=== PATIENT | female | born 1990 | race Caucasian/White ===

== ENCOUNTER 2023-11-12 23:42 | Emergency (ER) | payer SELFPAY ==
[2023-11-12 23:47] VITALS: BP 143/91; PULSE 100; RESP 20; TEMP 36.7; O2SAT 97; BMI 37.4
[2023-11-13] VITALS (12 sets, daily range): BP systolic 112–127; BP diastolic 65–105; O2SAT 95–99
--- NOTE | 2023-11-13 00:08 | ED_ITS ---
HPI - Abdominal Pain General Chief Complaint: Abdominal Pain Stated Complaint: RT FLANK PAIN Time Seen by Provider: 11/13/23 00:00 Source: patient Mode of arrival: walk-in History of Present Illness HPI narrative: presents complaining of Right sided abdominal pain. Points to RUQ. pain that started around noon yesterday and has continued. Pain radiates around to her back and is associated with nausea. No fever. No chest pain or dyspnea Related Data Home Medications Medication Instructions Recorded Confirmed No Known Home Medications 11/12/23 11/12/23 Allergies Allergy/AdvReac Type Severity Reaction Status Date / Time Sulfa (Sulfonamide Allergy Verified 11/12/23 23:51 Antibiotics) peanuts Allergy Uncoded 11/12/23 23:51 Review of Systems ROS Status of ROS 10 or more systems reviewed and unremark able except as noted in history and below Exam Constitutional Vital Signs, click to edit/add: Last Vital Signs Temp 98.0 F 11/12/23 23:47 Pulse 100 H 11/12/23 23:47 Resp 20 11/12/23 23:47 BP 127/82 11/13/23 01:45 Pulse Ox 96 11/13/23 01:45 O2 Del Method Room Air 11/13/23 00:29 Common normals: no apparent distress, average body habitus, oriented x3, no limitations, healthy appearing, alert and well nourished [facility] Common normals: normocephalic Eye Common normals: PERRL, EOMs intact bilaterally and conjunctivae normal Respiratory Common normals: normal respiratory effort, no retractions, no use of accessory muscles and clear to auscultation bilaterally Cardio Common normals: regular rate, regular rhythm, S1 normal heart sound and S2 normal heart sound GI Common normals: soft to palpation Other: mod RUQ tenderness and mod. RLQ tenderness. mild tenderness periumbilical Extremity Common normals: normal to inspection and full ROM Neuro Common normals: oriented x3, CN's II-XII intact bilaterally, moves all extremities and no focal motor deficits Psych Appearance: grossly normal Course Vital Signs Vital signs: Vital Signs Temperature 98.0 F 11/12/23 23:47 Pulse Rate 100 H 11/12/23 23:47 Respiratory Rate 20 11/12/23 23:47 Blood Pressure 143/91 H 11/12/23 23:47 Pulse Oximetry 97 11/12/23 23:47 Temperature 98.0 F 11/12/23 23:47 Pulse Rate 100 H 11/12/23 23:47 Respiratory Rate 20 11/12/23 23:47 Blood Pressure 127/82 11/13/23 01:45 Pulse Oximetry 96 11/13/23 01:45 Oxygen Delivery Method Room Air 11/13/23 00:29 MDM - Abdominal Pain MDM Narrative Medical decision making narrative: arrives complaining of pain right side of her abdomen. Points to RUQ and states pain radiates around to her back. Pain present for 12 hours. Exam with mod. tenderness right upper and lower quad. No guarding. labs with normal LFTs and lipase. 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 Patient medicated with one dose of Fentany 50 and her pain improved nicely and no additional pain intervention required. CT also with findings of uncomplicated fat containing umbilical hernia . no findings of incarceration. Patient informed of the findings . Does have mild tenderness at the umbilicus but this is not the presenting cause of her pain clinically. She is advised to follow up with gynecology. She is to return if pain increases again Lab Data Labs: Lab Results 11/12/23 11/13/23 Range/Units 23:59 01:54 WBC 11.8 H (4.0-11.0) 10^3/uL RBC 4.75 (4.20-5.40) 10^6/uL Hgb 12.6 (12.0-16.0) g/dL Hct 39.6 (36.0-48.0) % MCV 83.4 (81.0-99.0) fL MCH 26.5 L (26.7-34.0) pg MCHC 31.8 (29.9-35.2) g/dL RDW 13.1 (11.0-15.0) % Plt Count 324 (150-450) 10^3/uL MPV 9.2 L (9.5-13.5) fL Seg Neuts % (Manual) 54.0 Lymphocytes % (Manual) 19.0 L (20.5-60.0) % Atypical Lymphs % (Man) 18.0 % Monocytes % (Manual) 5.0 (1.7-12.0) % Eosinophils % (Manual) 4.0 (0.9-7.0) % Basophils % (Manual) 0.0 L (0.2-2.0) % Neutrophils # (Manual) 6.37 (1.4-6.5) 10^3/uL Lymphocytes # (Manual) 2.24 (1.20-3.80) 10^3/uL Abs Atypical Lymphs Man 2.12 Monocytes # (Manual) 0.59 (0.30-0.80) 10^3/uL Eosinophils # (Manual) 0.47 (0.00-0.70) 10^3/uL Basophils # (Manual) 0.00 (0.00-0.10) 10^3/uL Sodium 138 (136-145) mmol/L Potassium 4.0 (3.5-5.1) mmol/L Chloride 105 (98-107) mmol/L Carbon Dioxide 26.4 (21.0-32.0) mmol/L Anion Gap 10.6 BUN 14.0 (7.0-18.0) mg/dL Creatinine 0.77 (0.55-1.02) mg/dL Est GFR ( Amer) >60 (>=60) Est GFR (Non-Af Amer) >60 (>=60) BUN/Creatinine Ratio 18.2 Glucose 114 H (74-106) mg/dL Lactate 1.5 (0.4-2.0) mmol/L Calcium 9.1 (8.5-10.1) mg/dL Total Bilirubin 0.2 (0.2-1.0) mg/dL AST 18 (15-37) U/L ALT 44 (14-59) U/L Alkaline Phosphatase 82 (46-116) U/L Troponin I High Sens <4.0 L (4.0-51.3) pg/mL Total Protein 7.5 (6.4-8.2) g/dL Albumin 3.5 (3.4-5.0) g/dL Globulin 4.0 g/dL Albumin/Globulin Ratio 0.9 Lipase 36.0 (16.0-77.0) U/L Urine Color Lt. yellow (YELLOW) Urine Clarity Clear (CLEAR) Urine pH 7.0 (5.0-9.0) Ur Specific [place] <=1.005 A (1.005-1.025) Urine Protein Negative (NEG/TRACE) mg/dL Urine Glucose (UA) Negative (NEGATIVE) mg/dL Urine Ketones Negative (NEGATIVE) mg/dL Urine Occult Blood Negative (NEGATIVE) Urine Nitrite Negative (NEGATIVE) Urine Bilirubin Negative (NEGATIVE) Urine Urobilinogen 0.2 (0.2-1.0) EU/dL Ur Leukocyte Esterase Negative (NEGATIVE) Urine HCG, Qual Negative (NEGATIVE) Imaging Data Abdominal x-ray: Radiologist's impression: ITS Impressions Abdomen/Pelvis CT 11/13/23 00:10 IMPRESSION: 1. Right ovarian teratoma. See measurements above. 2. 2 adjacent areas of herniation of omental fat in the anterior abdominal wall, one umbilical and 1 next to it, periumbilical. No obvious inflammatory changes of the herniated fat but correlate for any point tenderness in these areas. If present, this could cause acute focal pain and may require decompression. No bowel herniation. Electronically authenticated by: BIRD OQUENDO Date: 11/13/2023 02:00 Discharge Plan Discharge Chief Complaint: Abdominal Pain Clinical Impression: Teratoma of right ovary Patient Disposition: Home, Self-Care Prescriptions / Home Meds: No Action No Known Home Medications Instructions: Ovarian Cyst (ED) Additional Instructions: follow up with Dr Whitehead. Return if pain recurs Nichols every 6 hours foor pain Referrals: Physician,Non-Staff, MD [Primary Care Provider] - 1 week Stand Alone Forms: Portal Instructions
--- NOTE | 2023-11-13 00:10 | CT_ITS ---
The [address] [address] Patient Name: BRANDY BOND MRN: [id number] date: 1990 Sex: F Assigned Patient Location: ER Current Patient Location: Accession/Order Number: [id number] Exam Date: 11/13/2023 00:57 Report Date: 11/13/2023 02:00 At the request of: ADELAIDE DUBON Procedure: CT abdomen pelvis w con CT OF THE ABDOMEN AND PELVIS WITH CONTRAST: 11/13/2023 12:57 AM EST CLINICAL HISTORY: Right upper quadrant abdominal pain. Rib pain. COMPARISONS: None. TECHNIQUE: Thin section axial CT images were obtained from the lung bases to the pubis symphysis. This CT exam was performed using one or more of the following dose reduction techniques: Automated exposure control, adjustment of the mA and/or kV according to patient size, or use of iterative reconstruction technique. Thin section coronal and sagittal images were reconstructed from the axial data set. All images were reviewed and interpreted. CONTRAST: 100 mL Omnipaque 300 without event. FINDINGS: LUNG BASES: No consolidation or pleural fluid. LIVER: Mild diffuse hepatic steatosis. No liver mass or cyst. Normal portal vein enhancement. GALLBLADDER: Normal. BILIARY TREE: No ductal dilatation. PANCREAS: Normal. SPLEEN: Normal. ADRENALS: Normal. KIDNEYS: Normal, without urolithiasis or hydronephrosis. URINARY BLADDER: Grossly unremarkable. PELVIC STRUCTURES: There is a right ovarian/adnexal teratoma/dermoid cyst. This appears to contain all 3 germ cell areas with calcium, fat and soft tissue favoring a chronic teratoma. This measures 4.6 cm AP and 3.2 cm transverse and extends craniocaudal for 4.6 cm. Reproductive organs are otherwise unremarkable. Left ovary is normal. No uterine abnormalities. No fluid collection or free fluid in the pelvis. BOWEL: No evidence of obstruction, gross mass, or inflammatory change. There is no significant diverticulosis. There is no evidence of diverticulitis. APPENDIX: No active disease with normal appendix. LYMPH NODES: No pathologically enlarged lymph nodes identified. PERITONEUM: No intraperitoneal free air. No free intraperitoneal fluid. MESENTERY: Unremarkable. RETROPERITONEUM: The retroperitoneum is unremarkable. AORTA: Normal in caliber. BODY WALL: No body wall mass. Uncomplicated fat-containing umbilical hernia extending 2.6 cm AP and 1.5 cm transverse and 2.5 cm craniocaudal. No fatty infiltration of this larger area to suggest incarceration. There is a secondary area of herniation of omental fat more superior to the umbilical region with subtle herniation of fat and vessels in this area as well. Correlate for point tenderness. OSSEOUS STRUCTURES: Normal osseous structures and joints for age.7 CT/CT abdomen pelvis w con IMPRESSION: 1. Right ovarian teratoma. See measurements above. 2. 2 adjacent areas of herniation of omental fat in the anterior abdominal wall, one umbilical and 1 next to it, periumbilical. No obvious inflammatory changes of the herniated fat but correlate for any point tenderness in these areas. If present, this could cause acute focal pain and may require decompression. No bowel herniation. Electronically authenticated by: BIRD OQUENDO Date: 11/13/2023 02:00
[2023-11-13 00:19] LABS: Hematocrit 39.6 % (36.0-48.0); Hemoglobin 12.6 g/dL (12.0-16.0); Mean Corpuscular HGB Conc 31.8 g/dL (29.9-35.2); Mean Corpuscular Hemoglobin 26.5 pg (26.7-34.0); Mean Corpuscular Volume 83.4 fL (81.0-99.0); Mean Platelet Volume 9.2 fL (9.5-13.5); Platelet Count 324 10^3/uL (150-450); Red Blood Count 4.75 10^6/uL (4.20-5.40); Red Cell Distribution Width 13.1 % (11.0-15.0); White Blood Count 11.8 10^3/uL (4.0-11.0)
[2023-11-13] MEDS: FENTANYL CITRATE/PF 100 MCG/2 ML VIAL 50 MCG IV (00:20)
[2023-11-13] MEDS: 0.9 % SODIUM CHLORIDE 1,000 ML 999 ML IV (00:20)
[2023-11-13] MEDS: ONDANSETRON PF 4 MG/2 ML VIAL IV (00:21)
[2023-11-13 00:35] LABS: Alanine Aminotransferase 44 U/L (14-59); Albumin Globulin Ratio 0.9; Albumin Level 3.5 g/dL (3.4-5.0); Alkaline Phosphatase 82 U/L (46-116); Anion Gap 10.6; Aspartate Amino Transferase 18 U/L (15-37); BUN Creatinine Ratio 18.2; Bilirubin Total 0.2 mg/dL (0.2-1.0); Calcium 9.1 mg/dL (8.5-10.1); Carbon Dioxide 26.4 mmol/L (21.0-32.0); Chloride 105 mmol/L (98-107); Estimated GFR (African America >60 (>=60); Estimated GFR (Non-African Ame >60 (>=60); Glucose 114 mg/dL (74-106); Lactate/Lactic Acid 1.5 mmol/L (0.4-2.0); Sodium 138 mmol/L (136-145); Total Protein 7.5 g/dL (6.4-8.2); Troponin I High Sensitivity <4.0 pg/mL (4.0-51.3)
[2023-11-13 00:50] LABS: Atypical Lymphocytes Abs Man 2.12; Eosinophils Absolute Manual 0.47 10^3/uL (0.00-0.70); Lymphocytes Absolute Manual 2.24 10^3/uL (1.20-3.80); Monocytes Absolute Manual 0.59 10^3/uL (0.30-0.80); Segmented Neut Absolute Manual 6.37 10^3/uL (1.4-6.5)
[2023-11-13 02:01] LABS: Bilirubin Urine NEGATIVE (NEGATIVE); Blood Urine NEGATIVE (NEGATIVE); Clarity Urine CLEAR (CLEAR); Color Urine LT. YELLOW (YELLOW); Glucose Urine UA NEGATIVE (NEGATIVE); Ketones Urine NEGATIVE (NEGATIVE); Leukocyte Esterase Urine NEGATIVE (NEGATIVE); Nitrite Urine NEGATIVE (NEGATIVE); Protein Urine NEGATIVE (NEG/TRACE); Specific Gravity Urine <=1.005 (1.005-1.025); Urobilinogen Urine 0.2 EU/dL (0.2-1.0)
[2023-11-13 02:03] LABS: HCG Qualitative Urine* NEGATIVE (NEGATIVE); Urine Microscopic Indicated NO
[2023-11-13] MEDS: HYDROCODONE/ACET 5-325 MG TABLET 4 TAB PO (02:37)
== END 2023-11-13 02:50 | disposition home or self-care (01) ==
PROVIDERS: Emergency Provider Internal Medicine
DX: D27.0 Benign neoplasm of right ovary (principal); K42.9 Umbilical hernia without obstruction or gangrene
CPT/HCPCS: 36415; 74177; 80053; 81003; 83605; 83690; 84484; 84703; 85007; 85027; 96374; 96375; 99285; Q9967

== ENCOUNTER 2023-11-14 19:09 | Emergency (ER) | payer SELFPAY ==
[2023-11-14 19:12] VITALS: BP 127/84; PULSE 105; RESP 22; TEMP 36.7; O2SAT 99; BMI 37.5
--- OUTSIDE RECORDS SUMMARY | 2023-11-14 19:14 | XMS_ITS | CCD ---
Author Name Unknown Address [address] [place] [address] Organization [facility] Care Team Providers Care Transformation Lead Name Role Phone REQUEST, DR NONE LISTED Primary Care Unavaila ble DELLA ., VANESSA Admitting Unavailable ADELAIDE DUBON Consulting Unavailable DELLA ., VANESSA Attending Unavailable DELLA ., VANESSA Consulting Unavailable HARMEET PRAJAPATI Consulting Unavailable EMI KENNEDY Consulting Unavailable PAY ., DR HATCH Attending Unavailable ZIEBER, DR AMANDA Severino Consulting Unavailable PAY ., DR HATCH Admitting Unavailable REQUEST, NONE LISTED Primary Care Unavaila ble YAJOSE MIGUELH ., EMI Consulting Unavailable HAY ., DR MARR Attending Unavailable HAY ., DR MARR Admitting Unavailable REQUEST, NONE LISTED Primary Care Unavaila ble GRECHNY ., MELE ROBERTSON Consulting Unavailabl e REQUEST, NONE LISTED Primary Care Unavaila ble LUIS, DR DARRELL Severino Admitting Unavailable LUIS, DR DARRELL Severino Attending Unavailable LUIS, DR DARRELL Severino Consulting Unavailable JULIETTE ., KVNG Consulting Unavailable ASHUTOSHNEHAL Consulting Unavailable MARKER ., DR BOGGS Attending Unavailable MARKER ., DR BOGGS Consulting Unavailable MARKER ., DR BOGGS Admitting Unavailable REQUEST, NONE LISTED Primary Care Unavaila ble REQUEST, DR LEIJA LISTED Primary Care Unavaila ble DELLA ., VANESSA Admitting Unavailable DELLA ., VANESSA Attending Unavailable DELLA ., VANESSA Consulting Unavailable EASTON GERMAIN Consulting Unavailable Allergies Allergy Classification Reported Allergen(s) Allergy Type Date of Onset Reaction(s) Facility (1 source) peanut allergenic extract Drug Allergy [facility] Repository (1 source) Sulfonamides (Antibiotic) Drug allergy (disorder) [facility] Repository Problems Active Problems Problem Classification Problem Date Documented Da te Episodic/Chronic Other non-traumatic joint disorders (4 sources) Pain in right hip; Translations: [PAIN IN RIGHT HIP] Onset: 01-18-2023 Episodic Substance-related disorders (1 source) Nicotine dependence, cigarettes, uncomplicated; Translations: [NICOTINE DEPEND CIGARETTES UNCOMP] Onset: 01-21-2023 Chronic Syncope (5 sources) Syncope and collapse; Translations: [SYNCOPE AND COLLAPSE] Onset: 09-30-2022 Episodic Unclassified (1 source) CONTACT W/AND (SUSP) EXPOS COVID-19; Translations: [CONTACT W/AND (SUSP) EXPOS COVID-19] Onset: 03-21-2022 Past or Other Problems Problem Classification Problem Date Documented Da te Episodic/Chronic Acute bronchitis (1 source) Acute bronchitis, unspecified; Translations: [ACUTE BRONCHITIS UNSPECIFIED] Onset: 03-21-2022 Episodic Disorders of teeth and jaw (5 sources) Other specified disorders of teeth and supporting structures; Translations: [Dental caries, unspecified] Onset: 05-23-2022 Episodic E Codes: Fall (1 source) Unspecified fall, initial encounter; Translations: [UNSPECIFIED FALL INITIAL ENCOUNTER] Onset: 06-05-2022 Episodic Fluid and electrolyte disorders (1 source) Dehydration; Translations: [DEHYDRATION] Onset: 10-02-2022 Episodic Other nervous system disorders (1 source) Atypical facial pain; Translations: [ATYPICAL FACIAL PAIN] Onset: 05-24-2022 Episodic Other non-traumatic joint disorders (3 sources) Pain in left wrist; Translations: [PAIN IN LEFT WRIST] Onset: 06-03-2022 Episodic Other upper respiratory infections (3 sources) Acute pharyngitis, unspecified; Translations: [ACUTE PHARYNGITIS UNSPECIFIED] Onset: 03-19-2022 Episodic Skull and face fractures (1 source) Fracture of tooth (traumatic), initial encounter for closed fracture; Translations: [FX TOOTH TRAUMAT INIT ENC CLOS FX] Onset: 03-06-2022 Episodic Sprains and strains (1 source) Unspecified sprain of left wrist, initial encounter; Translations: [UNSPECIFIED SPRAIN LT WRIST INITIAL] Onset: 06-05-2022 Episodic Results Test Name Value Interpretation Reference Range Facil ity CBC AUTO DIFFon 01-18-2023 BASO # 0.1 103/ul Normal 0.0-0.1 [facility] Comment on above: Performed By: #### C BC ####[facility] [address] [place] [address]Dr. Janet Vieira Basophils/100 WBC (Bld) 0.5 % Normal 0.2-2.0 [facility] Comment on above: Performed By: #### C BC ####[facility] I[address] [place], [place] [address]Dr. Janet Vieira EO # 0.2 103/ul Normal 0.0-0.7 [facility] Comment on above: Performed By: #### C BC ####[facility] Kamcuoibrg[address] [place], [place] [address]Dr. Janet Vieira Eosinophils/100 WBC (Bld) 1.6 % Normal 0.9-7.0 [facility] Comment on above: Performed By: #### C BC ####[facility] Aqcmknvohs[address] [place], [place] [address]Dr. Janet Vieira Erythrocyte distribution width (RBC) [Ratio] 13.1 % Normal 11.0-15.0 [facility] Comment on above: Performed By: #### C BC ####[facility] Wjavszqunp[address] [place], [place] [address]Dr. Janet Vieira Hematocrit (Bld) [Volume fraction] 38.2 % Normal 36.0-48.0 [facility] Comment on above: Performed By: #### C BC ####[facility] C[address]oyxuz[address] [place], [place] [address]Dr. Janet Vieira Hemoglobin (Bld) [Mass/Vol] 12.1 g/dL Normal 12.0-16.0 [facility] Comment on above: Performed By: #### C BC ####[facility] J[address]thrul[address] [place], [place] [address]DrDang Vieira IG # 0.04 10e3/ul Critically high 0.00-0.03 [facility] Comment on above: Performed By: #### C BC ####[facility] Nzzvkpdter45[address] [place], [place] [address]Dr. Janet Vieira IG % 0.4 % Normal 0.0-0.5 [facility] Comment on above: Performed By: #### C BC ####[facility] Zgkzwipbey[address] [place], [place] [address]DrDang Vieira LYMPH # 3.1 103/ul Normal 1.2-3.8 [facility] Comment on above: Performed By: #### C BC ####[facility] [address] [place] [address]Dr. Janet Vieira Lymphocytes/100 WBC (Bld) 31.7 % Normal 20.5-60.0 [facility] Comment on above: Performed By: #### C BC ####[facility] [address] [place] [address]DrDang Vieira MANUAL DIFF REQ NO Normal [facility] Comment on above: Performed By: #### C BC ####[facility] [address]xs[address] [place] [address]Dr. Janet Vieira MCH (RBC) [Entitic mass] 26.0 pg Critically low 26.7-34.0 [facility] Comment on above: Performed By: #### C BC ####[facility] Hmsodxwkdc[address] [place], [place] [address]Dr. Janet Vieira MCHC (RBC) [Mass/Vol] 31.7 g/dL Normal 29.9-35.2 [facility] Comment on above: Performed By: #### C BC ####[facility] Nlxzzmorwo[address] [place], [place] [address]DrDang Vieira MCV (RBC) [Entitic vol] 82.0 fL Normal 81.0-99.0 [facility] Comment on above: Performed By: #### C BC ####[facility] Rmqopjssyg[address] [place], [place] [address]Dr. Janet Vieira MONO # 0.7 103/ul Normal 0.3-0.8 [facility] Comment on above: Performed By: #### C BC ####[facility] Hpfckiqkbk[address] [place], [place] [address]DrDang Vieira Monocytes/100 WBC (Bld) 6.8 % Normal 1.7-12.0 [facility] Comment on above: Performed By: #### C BC ####[facility] Qnnwujtuta40[address] [place], [place] [address]Dr. Janet Vieira NEUT # 5.7 103/ul Normal 1.4-6.5 [facility] Comment on above: Performed By: #### C BC ####[facility] [address]fqglcy[address] [place] [address]Dr. Janet Vieira Neutrophils/100 WBC (Bld) 59.0 % Normal 43.0-75.0 [facility] Comment on above: Performed By: #### C BC ####[facility] Xutcqtxvqj213[address] [place], [place] [address]Dr. Janet Vieira Platelet mean volume (Bld) [Entitic vol] 8.8 fL Critically low 9.5-13.5 [facility] Comment on above: Performed By: #### C BC ####[facility] Vfqtukmotr[address] [place], [place] [address]Dr. Janet Dariel PLT 272 103/ul Normal 150-450 [facility] Comment on above: Performed By: #### C BC ####[facility] Pfbbcovhtq33[address] [place], [place] [address]Dr. Janet Dariel RBC 4.66 106/ul Normal 4.20-5.40 [facility] Comment on above: Performed By: #### C BC ####[facility] Upjemtsukz97[address] [place], [place] [address]Dr. Janet Vieira WBC 9.6 103/ul Normal 4.0-11.0 [facility] Comment on above: Performed By: #### C BC ####[facility] Vrjpnvidwe[address] [place], [place] [address]Dr. Janet Vieira ER URINE PROFILEon 3 Bilirubin Ql (U) Negative Normal NEGATIVE [facility] Comment on above: Performed By: #### E RUR PREGU ####[facility] F[address]njaqgec[address] [place], [place] [address]Dr. Jaent Vieira Clarity (U) CLEAR Normal CLEAR [facility] Comment on above: Performed By: #### E RUR, PREGU ####[facility] Qfajxtqeyr[address] [place], [place] [address]Dr. Janet Vieira Color (U) LT. YELLOW Normal YELLOW [facility] Comment on above: Performed By: #### E RUR, PREGU ####[facility] Emgkmwrkgs6[address] [place], [place] [address]Dr. Janet HANDYD A micrscopic examination will be performed if indicated. Normal [facility] Comment on above: Performed By: #### E RUR, PREGU ####[facility] Razkctduao7039[address] [place], [place] [address]Dr. Janet Vieira Glucose Ql (U) Negative Normal NEGATIVE [facility] Comment on above: Performed By: #### E RUR, PREGU ####[facility] Ghbrpuiiqa2412[address] [place], [place] [address]Dr. Janet Vieira Hemoglobin Ql (U) Negative Normal NEGATIVE [facility] Comment on above: Performed By: #### E RUR, PREGU ####[facility] Msxbqxsflx412[address] [place], [place] [address]Dr. Janet Vieira Ketones Ql (U) Negative Normal NEGATIVE [facility] Comment on above: Performed By: #### E RUR, PREGU ####[facility] Inoxlgrmgb7335[address] [place], [place] [address]Dr. Janet Vieira LEUKOCYTES Negative Normal NEGATIVE [facility] Comment on above: Performed By: #### E RUR, PREGU ####[facility] Kacuzihzdc8[address] [place], [place] [address]Dr. Janet Vieira Nitrite Ql (U) Negative Normal NEGATIVE [facility] Comment on above: Performed By: #### E RUR, PREGU ####[facility] Abkaurrmtv470[address] [place], [place] [address]Dr. Amandanette Dariel pH (U) 6.0 [pH] Normal 5-9 [facility] Comment on above: Performed By: #### E RUR, PREGU ####[facility] Ywyvukcyyb[address] [place], [place] [address]Dr. Janet Vieira SPEC GRAVITY <=1.005 Abnormal 1.005-<=1.025 [facility] Comment on above: Performed By: #### E RUR, PREGU ####[facility] Lfjylmxhyi[address] [place], [place] [address]Dr. Janet Vieira UA PROTEIN Negative Normal NEGATIVE/ TRACE [facility] Comment on above: Performed By: #### E RUR, PREGU ####[facility] Qmfcmypgci6135[address] [place], [place] [address]Dr. Janet Vieira UR MICRO IND NOT INDICATED Normal [facility] Comment on above: Performed By: #### E RUR, PREGU ####[facility] [address]jv[address] [place] [address]Dr. Janet Vieira Urobilinogen Qn (U) 0.2 {Leia'U}/dL Normal 0.2 - 1. 0 [facility] Comment on above: Performed By: #### Lorie DALEY, PREGU ####[facility] Pomhexjmuk[address] [place], [place] [address]Dr. Janet Vieira URon 01-18-2023 , QUAL Negative Normal NEGATIVE [facility] Comment on above: Performed By: #### Lorie DALEY, PREGU ####[facility] Wwrqqpavdn4039[address] [place], [place] [address]Dr. Janet Vieira PROF 14(COMP METB)on 023 Albumin [Mass/Vol] 3.3 g/dL Critically low 3.4-5.0 [facility] Comment on above: Performed By: #### C MP ####[facility] Dmvjzetgra[address] [place], [place] [address]Dr. Janet Vieira Albumin/Globulin [Mass ratio] 1.0 {ratio} Normal [facility] Comment on above: Performed By: #### C MP ####[facility] Qqlymyyeiq44[address] [place], [place] [address]Dr. Janet Vieira ALP [Catalytic activity/Vol] 74 U/L Normal 46-116 [facility] Comment on above: Performed By: #### C MP ####[facility] Tnxrdrrayj639[address] [place], [place] [address]Dr. Janet Vieira ALT [Catalytic activity/Vol] 42 U/L Normal 14-59 [facility] Comment on above: Performed By: #### C MP ####[facility] [address]zmbk[address] [place] [address]Dr. Janet Vieira Anion gap [Moles/Vol] 12.2 mmol/L Normal [facility] Comment on above: Performed By: #### C MP ####[facility] Hqjocorgso3670[address] [place], [place] [address]Dr. Janet Vieira AST [Catalytic activity/Vol] 19 U/L Normal 15-37 [facility] Comment on above: Performed By: #### C MP ####[facility] Xmrzlkrffv6[address] [place], [place] [address]Dr. Janet Vieira Bilirubin [Mass/Vol] 0.5 mg/dL Normal 0.2-1.0 [facility] Comment on above: Performed By: #### C MP ####[facility] Hxudrktsuv911[address] [place], [place] [address]Dr. Janet Vieira Calcium [Mass/Vol] 8.5 mg/dL Normal 8.5-10.1 [facility] Comment on above: Performed By: #### C MP ####[facility] Uyfrmfcrqz85[address] [place], [place] [address]Dr. Janet Vieira Chloride [Moles/Vol] 105 mmol/L Normal 98-107 [facility] Comment on above: Performed By: #### C MP ####[facility] Hcbsjxtulq53[address] [place], [place] [address]Dr. Janet Vieira CO2 [Moles/Vol] 26.8 mmol/L Normal 21.0-32.0 [facility] Comment on above: Performed By: #### C MP ####[facility] Ukldbndrhr[address] [place], [place] [address]Dr. Janet Dariel Creatinine [Mass/Vol] 0.73 mg/dL Normal 0.55-1.02 [facility] Comment on above: Performed By: #### C MP ####[facility] Tbecwzkssp62[address] [place], [place] [address]Dr. Amandanette Dariel EGFR-AF [place] CITIZ[place] >60 Normal >=60 [facility] Comment on above: Performed By: #### C MP ####[facility] Esokasyoit[address] [place], [place] [address]Dr. Janet Vieira EGFR-NON AF [place] CITIZ[place] >60 Normal >=60 [facility] Comment on above: Performed By: #### C MP ####[facility] [address]ttdviwu[address] [place] [address]Dr. Janet Vieira Globulin (S) [Mass/Vol] 3.4 g/dL Normal [facility] Comment on above: Performed By: #### C MP ####[facility] Fujjgfhggc[address] [place] [address]Dr. Janet Vieira Glucose [Mass/Vol] 105 mg/dL Normal 74-106 [facility] Comment on above: Performed By: #### C MP ####[facility] Nyrxtinqca[address] [place], [place] [address]Dr. Janet Vieira Potassium [Moles/Vol] 4.0 mmol/L Normal 3.5-5.1 [facility] Comment on above: Performed By: #### C MP ####[facility] Xhwnnoequz[address] [place], [place] [address]Dr. Janet Vieira Protein [Mass/Vol] 6.7 g/dL Normal 6.4-8.2 [facility] Comment on above: Performed By: #### C MP ####[facility] Nqjvzsjjyk[address] [place], [place] [address]Dr. Janet Vieira Sodium [Moles/Vol] 140 mmol/L Normal 136-145 [facility] Comment on above: Performed By: #### C MP ####[facility] Vroqlgkrxo[address] [place], [place] [address]Dr. Janet Vieira Urea nitrogen [Mass/Vol] 9.0 mg/dL Normal 7.0-18.0 [facility] Comment on above: Performed By: #### C MP ####[facility] [address]kgatkvbd[address] [place], [place] [address]Dr. Janet Vieira Urea nitrogen/Creatinine [Mass ratio] 12.3 mg/mg Normal [facility] Comment on above: Performed By: #### C MP ####[facility] W[address]tbkrtvp[address]20[address] [place], [place] [address]Dr. Janet Vieira XR HIP RT 2 3V W PELVISon XR HIP RT 2 3V W PELVIS EXAM: XR HIP RT 2 3V W PELVIS INDICATION: Right lateral hip pain after seizure today. COMPARISON: None. TECHNIQUE: : Frontal and frog-leg lateral views of the right hip. Frontal view of the pelvis. FINDINGS: No acute fracture or dislocation. The right hip joint is preserved. Intact pelvic ring. Unremarkable soft tissues. IMPRESSION: Normal right hip. Electronically authenticated by: EASTON GERMAIN Date: 2023-01-18 11:19 Normal [facility] CARDIAC DARRELL 3-6on 3 CK [Catalytic activity/Vol] 71 U/L Normal 26-192 [facility] Comment on above: Performed By: #### C MREP ####[facility] [address] [place] [address]DrDang Vieira CK.MB [Mass/Vol] 0.15 ng/mL Normal <=3.60 [facility] Comment on above: Performed By: #### Jian MREP ####[facility] Cotujuozeh[address] [place], [place] [address]DrDang Vieira HSTROP 5.1 pg/mL Normal 4.0-51.3 [facility] Comment on above: Result Comment: CUT- OFF POINTS HAVE BEEN ESTABLISHED BASED ON THE FOURTH UNIVERSAL DEFINITIONS OF MYOCARDIAL INFARCTION. THE UPPER REFERENCE LIMIT (URL) OF TROPONIN, DEFINED THE 99TH PERCENTILE OF cTnI DISTRIBUTION IN A REFERENCE POPULATION, HAS BEEN CONFIRMED THE DECISION THRESHOLD FOR MS DIAGNOSIS. Performed By: #### Jian MREP ####[facility] [address] [place] [address]DrDang Vieira CARDIAC DARRELL ADMITon 023 CK [Catalytic activity/Vol] 72 U/L Normal 26-192 [facility] Comment on above: Performed By: ###JESSE Sky MP ####[facility] [address] [place] [address]DrDang Vieira CK.MB [Mass/Vol] ng/mL Normal <=3.60 [facility] Comment on above: Performed By: #### JESSE Villar MP ####[facility] [address] [place] [address]DrDang Vieira HSTROP <4.0 Normal 4.0-51.3 [facility] Comment on above: Result Comment: CUT- OFF POINTS HAVE BEEN ESTABLISHED BASED ON THE FOURTH UNIVERSAL DEFINITIONS OF MYOCARDIAL INFARCTION. THE UPPER REFERENCE LIMIT (URL) OF TROPONIN, DEFINED THE 99TH PERCENTILE OF cTnI DISTRIBUTION IN A REFERENCE POPULATION, HAS BEEN CONFIRMED THE DECISION THRESHOLD FOR MS DIAGNOSIS. Performed By: #### C JESSE RIVAS ####[facility] [address] [place] [address]Dr. Janet Vieira SUMEET 37 ng/mL Normal 9-82 [facility] Comment on above: Performed By: #### C JESSE RIVAS ####[facility] [address] [place] [address]Dr. Janet Vieira CBC AUTO DIFFon 09-30-2022 BASO # 0.0 103/ul Normal 0.0-0.1 [facility] Comment on above: Performed By: #### C BC #### [facility] [address] [place] [address] Dr. Janet Vieira Basophils/100 WBC (Bld) 0.5 % Normal 0.2-2.0 [facility] Comment on above: Performed By: #### C BC #### [facility] [address] [place] [address] Dr. Janet Vieira EO # 0.1 103/ul Normal 0.0-0.7 [facility] Comment on above: Performed By: #### C BC #### [facility] [address] [place] [address] [address] Janet Vieira Eosinophils/100 WBC (Bld) 1.5 % Normal 0.9-7.0 [facility] Comment on above: Performed By: #### C BC #### [facility] [address] [place] [address] Dr. Janet Vieira Erythrocyte distribution width (RBC) [Ratio] 13.0 % Normal 11.0-15.0 [facility] Comment on above: Performed By: #### C BC #### [facility] [address] [place] [address] Dr. Janet Vieira Hematocrit (Bld) [Volume fraction] 37.1 % Normal 36.0-48.0 [facility] Comment on above: Performed By: #### C BC #### [facility] [address] [place] [address] Dr. Janet Vieira Hemoglobin (Bld) [Mass/Vol] 12.4 g/dL Normal 12.0-16.0 [facility] Comment on above: Performed By: #### C BC #### [facility] [address] [place] [address] Dr. Janet Vieira IG # 0.02 10e3/ul Normal 0.00-0.03 [facility] Comment on above: Performed By: #### C BC #### [facility] [address] [place] [address] Dr. Janet Vieira IG % 0.2 % Normal 0.0-0.5 [facility] Comment on above: Performed By: #### C BC #### [facility] [address] [place] [address] Dr. Janet Vieira LYMPH # 3.2 103/ul Normal 1.2-3.8 [facility] Comment on above: Performed By: #### C BC #### [facility] [address] [place] [address] Dr. Janet Vieira Lymphocytes/100 WBC (Bld) 36.6 % Normal 20.5-60.0 [facility] Comment on above: Performed By: #### C BC #### [facility] [address] [place] [address] Dr. Janet Vieira MANUAL DIFF REQ NO Normal [facility] Comment on above: Performed By: #### C BC #### [facility] [address] [place] [address] Dr. Janet Vieira MCH (RBC) [Entitic mass] 25.9 pg Critically low 26.7-34.0 [facility] Comment on above: Performed By: #### C BC #### [facility] [address] [place] [address] Dr. Janet Vieira MCHC (RBC) [Mass/Vol] 33.4 g/dL Normal 29.9-35.2 [facility] Comment on above: Performed By: #### C BC #### [facility] [address] [place] [address] Dr. Janet Vieira MCV (RBC) [Entitic vol] 77.6 fL Critically low 81.0-99.0 [facility] Comment on above: Performed By: #### C BC #### [facility] [address] [place] [address] Dr. Janet Vieira MONO # 0.6 103/ul Normal 0.3-0.8 [facility] Comment on above: Performed By: #### C BC #### [facility] [address] [place] [address] Dr. Janet Vieira Monocytes/100 WBC (Bld) 6.7 % Normal 1.7-12.0 [facility] Comment on above: Performed By: #### C BC #### [facility] [address] [place] [address] Dr. Janet Vieira NEUT # 4.8 103/ul Normal 1.4-6.5 [facility] Comment on above: Performed By: #### C BC #### [facility] [address] [place] [address] Dr. Janet Vieira Neutrophils/100 WBC (Bld) 54.5 % Normal 43.0-75.0 [facility] Comment on above: Performed By: #### C BC #### [facility] [address] [place] [address] Dr. Janet Vieira Platelet mean volume (Bld) [Entitic vol] 8.7 fL Critically low 9.5-13.5 [facility] Comment on above: Performed By: #### C BC #### [facility] [address] [place] [address] Dr. Janet Vieira PLT 303 103/ul Normal 150-450 [facility] Comment on above: Performed By: #### C BC #### [facility] [address] [place] [address] Dr. Janet Vieira RBC 4.78 106/ul Normal 4.20-5.40 [facility] Comment on above: Performed By: #### C BC #### [facility] [address], [place] [address] Dr. Janet Vieira WBC 8.8 103/ul Normal 4.0-11.0 [facility] Comment on above: Performed By: #### C BC #### [facility] [address], [place] [address] HEAD WO CONon 09-30-2022 CT HEAD WO CON EXAMINATION: CT HEAD WO CON HISTORY: Syncope COMPARISON: None. TECHNIQUE: CT head without IV contrast. Coronal and sagittal reformations were performed. Dose reduction techniques were achieved by using automated exposure control and/or adjustment of mA and/or kV according to patient size and/or use of iterative reconstruction technique. FINDINGS: The lateral ventricles are normal size, shape and position. The third and fourth ventricles are midline. Rebolledo-white differentiation is normal. A mass is not identified. No intracranial hemorrhage is detected. Cortical sulci are normal and are symmetrical side to side. A fracture or cortical irregularity is not identified. The visualized paranasal sinuses are clear. The mastoid air cells are normally pneumatized. IMPRESSION: 1. Normal unenhanced head CT. Electronically authenticated by: EMI KENNEDY Date: 2022-09-30 18:32 Normal [facility] CTA CHEST WO W CONon 023 CTA CHEST WO W CON INDICATION: Syncope with chest pain elevated d-dimer EXAMINATION: CTA CHEST WITH CONTRAST TECHNIQUE: Helically acquired images were obtained of the chest following IV contrast. A radiation dose optimization technique was used for this scan. Post-processing of the angiographic images was performed, with multiplanar reformation and 3D reconstruction. COMPARISON: A chest x-ray performed at 17:51 hours __ FINDINGS: BOLUS: The quality of the contrast bolus is excellent. AORTA: No aneurysm, dissection or stenosis detected. GREAT VESSELS: Patent. PULMONARY ARTERIES: No pulmonary emboli are identified. LUNGS, PLEURAL SPACES, TRACHEA AND MAINSTEM BRONCHI: The right lung is clear. There is a calcified left lower lobe granuloma. There is no pneumothorax. The trachea and mainstem bronchi are clear. THYROID: No thyroid gland mass or lesion is identified. HEART AND PERICARDIUM: The heart size is normal. A pericardial effusion is not identified. No coronary artery calcifications are observed. MEDIASTINUM AND LOVE: No mediastinal or hilar adenopathy. A calcified left hilar lymph node measures up to 1.3 cm in short axis. The esophagus is unremarkable. No hiatal hernia. AXILLAE: There is no adenopathy or stranding of fat planes. UPPER ABDOMEN: No acute pathology. There is at least one calcified splenic granuloma. MUSCULOSKELETAL: Osseous structures are age-appropriate. IMPRESSION: 1. No pulmonary emboli detected. 2. Findings compatible with prior exposure to granulomatous disease. 3. An acute abnormality is not identified. Electronically authenticated by: EMI KENNEDY Date: 2022-09-30 19:28 Normal [facility] D-DIMERon 09-30-2022 D-DIMER 0.68 mg/L FEU Critically high <=0.59 [facility] Comment on above: Performed By: #### D DIM, PT, PTT #### [facility] [address] [place] [address] [address] Janet Vieira D-DIMER COMMENTS SEE BELOW Normal [facility] Comment on above: Result Comment: Incr eases in D-Dimer concentration observed with thromboembolic events can be variable due to localization, size, and age of the thrombus. Therefore, a thromboembolic event cannot be diagnosed with certainty on the basis of the reference range. D-Dimers may also be elevated for a variety of disorders including: advanced age, , coronary disease, cancer, liver disease, infection, inflammation, hematoma, DIC, trauma, post-surgery, diabetes, thrombolytic or anticoagulant therapy, stress, and generalized hospitalization. Performed By: #### D DIM, PT, PTT #### [facility] [address], [place] [address] Dr. Janet Vieira ER URINE PROFILEon 3 Bilirubin Ql (U) Negative Normal NEGATIVE [facility] Comment on above: Performed By: #### E RUR, UMICRO, PREGU #### [facility] [address], [place] [address] Dr. Janet Vieira Clarity (U) CLEAR Normal CLEAR [facility] Comment on above: Performed By: #### E RUR, UMICRO, PREGU #### [facility] [address] [place] [address] [address] Janet Vieira Color (U) LT. YELLOW Normal YELLOW [facility] Comment on above: Performed By: #### E RUR, UMICRO, PREGU #### [facility] [address] [place] [address] [address] Janet PENA A micrscopic examination will be performed if indicated. Normal [facility] Comment on above: Performed By: #### E RUR, UMICRO, PREGU #### [facility] [address] [place] [address] [address] Janet Vieira Glucose Ql (U) Negative Normal NEGATIVE [facility] Comment on above: Performed By: #### E RUR, UMICRO, PREGU #### [facility] [address] [place] [address] [address] Janet Vieira Hemoglobin Ql (U) MODERATE Abnormal NEGATIVE [facility] Comment on above: Performed By: #### E RUR, UMICRO, PREGU #### [facility] [address] [place] [address] [address] Janet Vieira Ketones Ql (U) Negative Normal NEGATIVE [facility] Comment on above: Performed By: #### E RUR, UMICRO, PREGU #### [facility] [address] [place] [address] [address] Janet Vieira LEUKOCYTES Negative Normal NEGATIVE [facility] Comment on above: Performed By: #### E RUR, UMICRO, PREGU #### [facility] [address] [place] [address] [address] Janet Vieira Nitrite Ql (U) Negative Normal NEGATIVE [facility] Comment on above: Performed By: #### E RUR, UMICRO, PREGU #### [facility] [address] [place] [address] [address] Janet Vieira pH (U) 5.5 [pH] Normal 5-9 [facility] Comment on above: Performed By: #### E RUR, UMICRO, PREGU #### [facility] [address] [place] [address] [address] Janet Vieira SPEC GRAVITY <=1.005 Abnormal 1.005-<=1.025 [facility] Comment on above: Performed By: #### E GENEVA DALEYRO, PREGU #### [facility] [address] [place] [address] [address] Janet Vieira UA PROTEIN Negative Normal NEGATIVE/ TRACE [facility] Comment on above: Performed By: #### JESSY DANIEL, PREGU #### [facility] [address] [place] [address] [address] Janet Vieira UR MICRO IND INDICATED Normal [facility] Comment on above: Performed By: #### JESSY DANIEL, PREGU #### [facility] [address] [place] [address] [address] Janet Vieira Urobilinogen Qn (U) 0.2 {Leia'U}/dL Normal 0.2 - 1. 0 [facility] Comment on above: Performed By: #### JESSY DANILE, PREGU #### [facility] [address] [place] [address] [address] Janet Vieira URon 09-30-2022 , QUAL Negative Normal NEGATIVE [facility] Comment on above: Performed By: #### JESSY DANIEL, PREGU #### [facility] [address] [place] [address] [address] Janet Vieira PROF 14(COMP METB)on 023 Albumin [Mass/Vol] 3.4 g/dL Normal 3.4-5.0 [facility] Comment on above: Performed By: #### C JESSE RIVAS ####[facility] [address] [place] [address]Dr. Janet Vieira Albumin/Globulin [Mass ratio] 1.0 {ratio} Normal [facility] Comment on above: Performed By: #### C JESSE RIVAS ####[facility] [address] [place] [address]Dr. Janet Vieira ALP [Catalytic activity/Vol] 80 U/L Normal 46-116 [facility] Comment on above: Performed By: #### C ROB, JESSE ####[facility] [address] [place] [id number]. Janet Vieira ALT [Catalytic activity/Vol] 44 U/L Normal 14-59 [facility] Comment on above: Performed By: #### C ROB, JESSE ####[facility] [address] [place] [id number]. Janet Vieira Anion gap [Moles/Vol] 11.4 mmol/L Normal [facility] Comment on above: Performed By: #### C JESSE RIVAS ####[facility] [address] [place], [place] [address]Dr. Janet Vieira AST [Catalytic activity/Vol] 22 U/L Normal 15-37 [facility] Comment on above: Performed By: #### C JESSE RIVAS ####[facility] [address] [place], [place] [address]Dr. Janet Vieira Bilirubin [Mass/Vol] 0.3 mg/dL Normal 0.2-1.0 [facility] Comment on above: Performed By: #### C JESSE RIVAS ####[facility] [address] [place], [place] [address]Dr. Janet Vieira Calcium [Mass/Vol] 8.7 mg/dL Normal 8.5-10.1 [facility] Comment on above: Performed By: #### C ROB, JESSE ####[facility] [address] [place] [address]Dr. Janet Vieira Chloride [Moles/Vol] 103 mmol/L Normal 98-107 [facility] Comment on above: Performed By: #### C ROB, JESSE ####[facility] [address] [place] [address]Dr. Janet Vieira CO2 [Moles/Vol] 26.6 mmol/L Normal 21.0-32.0 [facility] Comment on above: Performed By: #### C JESSE RIVAS ####[facility] [address] [place] [address]Dr. Janet Vieira Creatinine [Mass/Vol] 0.58 mg/dL Normal 0.55-1.02 [facility] Comment on above: Performed By: #### C ROB, JESSE ####[facility] [address] [place] [address]Dr. Janet Vieira EGFR-AF [place]IZ[place] >60 Normal >=60 [facility] Comment on above: Performed By: #### C ROB, CMADM ####[facility] [address] [place] [address]Dr. Janet Vieira EGFR-NON AF [place] CITIZ[place] >60 Normal >=60 [facility] Comment on above: Performed By: #### C ROB, CMAJANENE ####[facility] [address] [place] [address]Dr. Janet Vieira Globulin (S) [Mass/Vol] 3.4 g/dL Normal [facility] Comment on above: Performed By: #### C ROB, CMAJANENE ####[facility] [address] [place] [address]Dr. Janet Vieira Glucose [Mass/Vol] 101 mg/dL Normal 74-106 [facility] Comment on above: Performed By: #### C ROB, CMAJANENE ####[facility] [address] [place] [address]Dr. Janet Vieira Potassium [Moles/Vol] 4.0 mmol/L Normal 3.5-5.1 [facility] Comment on above: Performed By: #### C ROB, CMADM ####[facility] [address] [place] [address]Dr. Amandalan Vieira Protein [Mass/Vol] 6.8 g/dL Normal 6.4-8.2 [facility] Comment on above: Performed By: #### C ROB, CMADM ####[facility] [address] [place] [address]Dr. Janet Vieira Sodium [Moles/Vol] 137 mmol/L Normal 136-145 [facility] Comment on above: Performed By: #### C ROB, CMADM ####[facility] [address] [place], [place] [address]NoDr. Janet Vieira Urea nitrogen [Mass/Vol] 8.0 mg/dL Normal 7.0-18.0 [facility] Comment on above: Performed By: #### C ROB, JESSE ####[facility] [address] [place], [place] [address]NeDr. Janet Vieira Urea nitrogen/Creatinine [Mass ratio] 13.8 mg/mg Normal [facility] Comment on above: Performed By: #### C ROB, JESSE ####[facility] [address] [place], [place] [address]QqDr. Janet Vieira PROTIMEon 09-30-2022 INR Coag (PPP) [Relative time] 0.96 {INR} Normal [facility] Comment on above: Performed By: #### D DIM, PT, PTT #### [facility] [address] [place] [address] [address] Janet Vieira INR GUIDELINES SEE BELOW Normal [facility] Comment on above: Result Comment: SANKET RED INR: 2.0 - 3.0 CONDITIONS NOT LISTED BELOW 2.5 - 3.5 FOR PROSTHETIC HEART VALVE REPLACEMENT 2.5 - 3.5 RECURRENT THROMBOSIS Performed By: #### D DIM, PT, PTT #### [facility] [address] [place] [address] [address] Janet Vieira PT Coag (PPP) [Time] 10.2 s Normal 9.0-11.6 [facility] Comment on above: Performed By: #### D DIM, PT, PTT #### [facility] [address] [place] [address] [address] Janet Vieira PTTon 09-30-2022 aPTT Coag (Bld) [Time] 25.2 s Normal 22.3-36.2 [facility] Comment on above: Performed By: #### D DIM, PT, PTT #### [facility] [address] [place] [address] [address] Janet Vieira URINE MICROSCOPIC ONLYon BACTERIA NONE SEEN Normal NONE SEEN [facility] Comment on above: Performed By: #### E JESSY DALEY PREGU #### [facility] [address] [place] [address] [address] Janet Vieira Bacteria identified Cx Nom (U) NOT INDICATED Normal [facility] Comment on above: Performed By: #### JESSY DANIEL, PREGU #### [facility] [address] [place] [address] [address] Janet Vieira CAST NONE SEEN Normal NONE SEEN [facility] Comment on above: Performed By: #### JESSY DANIEL, PREGU #### [facility] [address] [place] [address] [address] Janet Vieira Crystals LM Nom (Urine sed) NONE SEEN Normal NONE SEEN [facility] Comment on above: Performed By: #### JESSY DANIEL, PREGU #### [facility] [address] [place] [address] Dr. Janet Vieira Epithelial cells LM Ql (Urine sed) RARE Normal NONE SEEN /RARE [facility] Comment on above: Performed By: #### JESSY DANIEL, PREGU #### [facility] [address] [place] [address] Dr. Janet Vieira MUCOUS NONE SEEN Normal NONE SEEN [facility] Comment on above: Performed By: #### JESSY DANIEL, PREGU #### [facility] [address] [place] [address] [address] Janet Vieira RBC 0-2 Normal 0-2 [facility] Comment on above: Performed By: #### JESSY DANIEL, PREGU #### [facility] [address] [place] [address] Dr. Janet Vieira WBC NONE SEEN Normal NONE SEEN [facility] Comment on above: Performed By: #### JESSY DANIEL, PREGU #### [facility] [address] [place] [address] Dr. Janet Vieira XR CHEST 1 Von 09-30-2022 XR CHEST 1 V EXAMINATION: XR CHES T 1 V HISTORY: Syncope COMPARISON: None. TECHNIQUE: Portable chest FINDINGS: The lung parenchyma is free of consolidation or infiltrate. No pneumothorax or pleural effusion. The cardiac, mediastinal and hilar contours are normal. The visualized osseous structures exhibit no gross abnormality. IMPRESSION: No acute cardiopulmonary abnormality. Electronically authenticated by: HARMEET PRAJAPATI Date: 2022-09-30 18:27 Normal [facility] Covid-19 PCR (CVDTB)on 03-08 SARS-CoV-2 (COVID-19) RNA ZAC+probe Ql (Unsp spec) Not detected Normal NOT DETECTED [facility] Comment on above: Result Comment: This test is not yet approved or cleared by the [place] FDA. When there are no FDA-approved or cleared tests available, and other criteria are met, FDA can make tests available under an emergency access mechanism called an Emergency Use Authorization (EUA). The EUA for this test is supported by the [place] of Health and Human Service's (HHS's) declaration that circumstances exist to justify the emergency use of in vitro diagnostics for the detection and/or diagnosis of the virus that causes COVID-19. This EUA will remain in effect (meaning this test can be used) for the duration of the COVID-19 declaration justifying emergency of IVDs, unless it is terminated or revoked by FDA (after which the test may no longer be used). When diagnostic testing is negative, the possibility of a false negative should be considered in the context of a patient's recent exposures and the presence of clinical signs and symptoms consistent with SARS-CoV-2. Performed By: #### C VDTBH ####[facility] [address] [place], [place] [id number]. Janet Vieira GROUP A STREP CULTUREon 03-08 S. pyogenes Ag Ql (Unsp spec) Culture Observations: NEGATIVE FOR GROUP A STREPTOCOCCUS. Normal [facility] Comment on above: Performed By: #### G RASTCX, SSCRN ####[facility] [address] [place], [place] [id number] Vieira STREPT SCREENon 03-19-2022 STREP SCREEN A Negative Normal NEGATIVE [facility] Comment on above: Performed By: #### G RASTCX, SSCRN ####[facility] [address] [place] [id number] Vieira XR NECK SOFT TISSUEon 2021 XR NECK SOFT TISSUE EXAM: XR NECK SOFT TISSUE HISTORY: Pain COMPARISON: None. TECHNIQUE: 2 views of the soft tissues of the neck are performed. FINDINGS: There is no significant tonsillar or adenoidal hypertrophy. Normal precervical soft tissues. Normal epiglottis and aryepiglottic folds. The bony structures are unremarkable. IMPRESSION: Unremarkable examination of the soft tissues of the neck. Electronically authenticated by: NEHAL BOYKIN Date: 2022-03-19 21:42 Normal [facility] Coding Summaryon 03-13-2022 Coding Summary HTMLBase 64 PpudrebgOXd1sAm+PGhlY WQ+UW1CTBEtN53mnDCmsH 6IA9wFBA6NDUZQRHXZSC0 VCJ5tpBY8RGyjF7ZvgqMm GcazyGRxMI41FTv4PNV6f GqdNKaofH0zjINgS4p9Iy XwIB99iW98YSgjFXKkXwV 3LjZpbjsgbWFy M6ycYfJnaEDjQnr+PHRhY mxlIHdpZHRoPScxMDAlJy GjeMxcMA3eBj6zEIDsGHQ vbGxhcHNlOiBj s8znITUiCDbuVD5prNgcV 5YoeOH5XVXbn1f9Us90nG I+JSNkECI8gGmiDVwxd08 5ZyGzi4zgRXV8 mPCxJChtKWF9L60nd0T6F VUxRZWxRXL2nYU1rU4ykH syyfgmW9FbwIRsVtT9VNH 7uMLefF1rcHsw ejfjtS9zVtm+T66FGT5ZG DVQKS8VGak3G0HuIlbccA I+DC93DIAvWJ75vJBkqFH ds8dtlEd6VsOi ZZVnEOI7rNxyWMkeo8FhQ DEpE08vkUKkf9N3FEDopI bccSQwEjOhpOG2eS7nYGq zyhreo1vpgzxd Iegqi4imua48pH08G86tZ RmnHTHbUUJ5HWKkTCBxxX cucq2guQ9aJm8+LXhhu6i iz2jzvUe3SlVt RTBrsvVtmIusYTT4p2IgX t62S1RfsPsis6OtWul3qz 98nXAcp5F1tIS5SKfiHGF zxA4dBQpeNoY6 DEAdJqRwkU66iIYpQCtmT t7lfQwqdKknCR0yGOWtup odZJLahS3zBUNetPJguTh jLZ2sPEYqhmlx e171LmYnORU9XEYaqMNqK 4PpbQ8yHfDvJWIoLSUfV1 PzmMKoZWvtZ757MTlaEqI 3WTZllhUwV0Jn KSWvePalMqL0w3G9Kh0Qw 0VgzozgSQB0YXyzLHF6Xn Y4OrGsAbH4G4CsNre8AFK raKgzYG9fV7Tt QXAdnaajnejfkUN2UIIwR MAlgJ06bYEnLPiyId5bf0 H4f357RRWrUAQzsT40Ar9 udDogMTBwdCBU wJ5ucqmrn3wjjfgbVxPqP GAdUSc7FGc1JLGenLywWx ZlWOK8HwW1ZUL4aRYloM9 ewLrsmfyiuD9j Oyc+E41wtM9uNBZ5HJJ2y dbdVLXfocLsCC51AI31W9 RyPjwvdGFibGU+PGRpdiB prOgsUU5yQlNf m3lfc4FcPBamR4VrUDCkS OqxQdp2UPKmDCD2qKA2iU 8cODUoVZhyv2T7cHX1J3L gjoCena0cn7ow TGPuSBvdM70ykQBel6J4K MCyxVP7SDDmoXtaHxPcwV 93Oyc+MWJzwVskb0CfQjs yk1lnw2hnfZq6 BiKvJUYimhTcxAhnESX2d 0GtHc38Y57wPCjxYCLyZC HqORZeTJEcxXbcyc1sfP9 wIi8+PGNvbCB3 xLI8cM2yXAYwCxT8VTnbS 021KzGgzHDzZbezl0wzf3 ooaYr4NdTlWYCnddIutSz oIJS3r8NnYa49 I22fJBsyOUBrWNAuWPPlK RUmyFuzpw1qzJ2hEz6+PC 1rf0fdse60vR79wOZ+PHR dUUM4tSdtYPne UKLebH2tGOpaMiP4AYMtC kZaeE58vRSsUGgbCy9pwO ryxPkvMR4qAMVgyoiwl60 0InUes6ayKXGl iPIrSGjdUEZ5L31ie0M3T RHeHFCtYJE6uNC1tR7hqI lnbjogbGVmdDsgdmVydGl xXUxdQWpsA084 IHRvcDsnPlBhdGllbnQgT iNtHGb9R0VoQos6YZUelQ msOM1ldZDvDGqeYa6bhHo jaHpgDX5cXPWm icfzk120NaGcz6dpZNWhd LUtMQvbZTG4L02pc8H4UC RhCCHwISI6vAX0vK3zrLa nbjogbGVmdDsg jxShePdkTUtjYUlcM585Y HRvcDsnPkJpcnRoIERhdG D5VO03ZM71rDAoj9J2hNV 7J1PtTAOgpvuu xrkqjEW0LNIjEBWdnC01C m9amNixBt2oOCSmTOK7PD JrmXDeB0HqoK0wVqZwGLN wNTQzC8NzvOQm VEyoC743EMjtSqP9HFXmu xAvK8RlCAHyvShyLwY4m1 F9Gz2NQ5Y3DS68KT99iDS gz2T1cTX8T2Sn QUPjkhjusvehtVJ9TGIoM XXsxE82Wp0vvNseTs5mXI DlVOA5RKEmsEZvD0NjpB8 yOiAjMDAwMDAw B4NyxJEwMXjaN875ZLmaB xD0TTYxrcCfQ2ZzUIKvoN nkRiG7s9T8Tt4BYPt4SE6 9AE42dUGmt4L4 fEB2D6BiXXZfdtxkqicqj KN3YTHwBUPhvX73Bk6siO dmTl5cHJSiJRX0LILgwUT sX2WyzB5kMvYd IXQbTMAiT9HtiLMmXRpbX 694RWzwSeI4IEFfduPqH5 TmZSLmqZgbEqN2s9D5Dt6 MWTYqBM53FZH8 lRH0BK52BL01V6KbVqwyz GFibGU+PHRhYmxlIHdpZH RoPScxMDAlJyBzdHlsZT0 tCh0uLZAkFNAn yCvxoHEbZsThj1viKXGdS IevBR7giYjaF4NwaVY1ED Pfz6m1Lr22B73bX1AzkYV +PGYpqRI3dDB0 qS1tPiJxWjB7XYkqZ631R fIuhXMcMmlli0nzi1owjQ q3QgT7BFKxriCayOlbSPH 7l9RnHx98K02p IHdpZHRoPSIxNSUiIHZhb Ixykq0lzU0tIo6+PGNvbC M2aQL0lC0lIqXyAqP4KSl nH072LeIrfHZn Gyyjn6pas7zbzCm3EuFnB STbzgZoaTfaSXT8y4ArXg 32O0DajKkmb0ZoIpt2jg9 7pTSoh1S2vZR5 M0ZaRLDigiskaYCgsCmjG F0vAHOsgbbkBJGitA6tHN QmN8x0VcTsHeP4CNfqS2H mcgB1WCImvQAx XSctZQQ9U08ee6E2APEcC FGpTRO1qAC6hI3fiYsepd ogbGVmdDsgdmVydGljYWw sQIvxG901YWHo wCtqSCQljU8dSXLpiSPog OcvJL9yKIBrqmvwWhAPOk 5FUywgQlJJVFROQVkgTkl QI9nMIS83YF74 eMCpd7M7nKZ1A9YzTBXrm fzvmqvdpWE1ZAZyXJBgrR 35xLDxULwgSe0cd6G6r26 8MTCnPQBokM37 Hy6onFepJXIpnJVDkB4aw nplq1gokbjhBgVkVSLpHM y4KOd3WFMkpUwwLkJdNZA 4JcB5GDJ7wCKj xR5ppAxbwyjyhO6pUdx+M LFcYXzjANq4SdkpyGL+PH TbABK6tXmaZHotPGRnfY7 pYFJfM0b7ThSl YsI0JDzeS3UpOCMinbmyN l93xH1sTaViImR9LXwdG4 IbpkA8ACDjqERwJFtdFBL 2P85tm4V8HDEn ODDgCXR5uZV1lR3haTemh jogbGVmdDsgdmVydGljYW wqDXztJ707ZANkeXqfHdP xADdzKLReDS77 XG17vGCle6W0bBV6D6DnQ RWakwyzrxhnyWX7JSVeJJ WfyQ19sYJrYDrfMt4ys3F 2u262BGTgONSu tQ80Ee1bjNrjAKWhgPIKq Q4nkmbos0lbpvauLlFjLV XvBDd6OZd4VLCxfEjiVhO kDTY5MyZ4EQQ3 zBNgcB1jnDdduaqfxL4nK yc+GhJWPMsTWK22BI16xI Zwe5I9pYN8E4DdTCEzfwc pnqqkbRY7GGEs KILmfN45sLUxKTqvNe0xv 8M4d335QSNbARDpaE70Ar 3bqMwyNUCsfABSpJ3sqez ln8ncrmugAzGf VBCiIWq1INl3BPAplGpfH dMqXCS6UuE9PDH5kJYncA 0jzZntogwfxP8gAxj+T1A 8I8EtZrlzvYO+ MV30DEAbFV57eRGufQKve 3zpbRi7PgViOGTiJKF4zT lfINcwc3GxWHWfC67quYV fr7K9BFJcdFiy xUBjGkBuiYF8sY3nFKdts ipbz3nixjslDtjqk6wgtv 29xS48P14nMGtzZBGfAMP zMCUiIHZhbGln es8pfG7bSs1+NKMbqCZ2z NN6xL8jZdHiOuT6SDenC8 08JhZkdXWfKfeoi7jsr0m rfTd8FxWcICMb zuJsoHzmJIR9d3IrIr75V 29sIHdpZHRoPSIyMCUiIH LueQiogh8rnR1cAk0+PC9 fv1evzn04xA35 dHI+JCOmOSC0tCuzWCqvG VKppZ1jXVoeFiX3FNRiEb FniQ32qEOqUVsqUo6guSl lzVfvFY6vWDTj dowwi891RyAbq5qsJHMoc MKvGVhwKMR5I37xl5V9HY UbSHHwEHF9mRU0dU2qhPa nbjogbGVmdDsg yrSbpMdoZNsdQSqtR586U BEwbIwqLpUnzFHeD8woxh WXGS6wJpfstBB+PHRkIHN 0eWxlPSdwYWRk tO0rLVWmX7n2CiFeNtR2E BkaF0VtpxZ9MXLduKGrCB EltZMVgI6lgstep5rkisn gIzAwMDAwMDt0 HUu8ABChlQczXvFbFJL0L eP4EHF8jXPemD9ilIalpe cizO0vMsm+RklOOjwvdGQ +KCUgYRM8vYrf IWseRKIjbZ8tFEAvE5c1M zLmRaJ4SEtyH0FsdcN0PO JanIJuFNQphCHFlB4gllm cy3eblcqiSaEy EXWbIIx6ZHf8DOAezIjiN xKvRYG0PzC2ALW2uQDkoP 0vjAternlsnE1oFip+TVJ OOjwvdGQ+PHRk AND7lXgxURwuWWMiaJ8tT GNiZ9n4ChFaTxD0CFufV5 RejcC9TGEuuDAaNVXznII NlZ0usiajz4ls jkfyUtIkMYKfKMy2GWf9L AHjrMcrPjIpNCS3WcM8IQ Q1nZEwvB2imMlzdfbklB5 wOyc+FVL1LMT5 YJ12OH79A5WnHexttAPcf +PHRhYmxlIHdpZHRoPS woOBVlClIjsDxiGY3xJg2 yZGVyLWNvbGxh cHN (more content not included)... [facility] Coding Summary HTMLBase 64 WiqoxwpcWRx0vJw+PGhlY WQ+QC7JEPOcA00iqBUgbQ 5EZ4fKII2SQVRALJHDYH5 JHD7ztIO2DSzjP8DhjvMi AqrzhRXfHS06VHw3QPP2x VlsYVpamP6udQTaW3o6Dr JfON58tC35BSciKLHcWjO 3LjZpbjsgbWFy J0szGkVuePErTzr+PHRhY mxlIHdpZHRoPScxMDAlJy YlwPdbTQ0uSe6oDHGuDJL vbGxhcHNlOiBj z8oeFFXmQAdrJG2hsCxcD 0SslEL1VMPua5u9Bc88iB I+FMRnSTX5tNhnPEosu59 8XhPrz7jiBHU0 vGGvQKgoMJN4P90zz3Y6P YVsRIVgHES2kKN5jP2gfO cxgcoyY7LjqAZiYjC4FWP 0zRFywC6uoQdd yresiA2eUds+M99FNC1VH NQYRK7NZot5Q2UtXbcpmU I+MJ75IYBpKP96mNAivCU qt6kujHc1XkEw JHWiSSN3aShtNWviv2MbR LYzC19dqJTqb4F7FCQnhV vuhEPhCpVgfEL9qL4bINj mnmjxi3xbvdux Cacpc0rvpc98uD76M60sY FmhORRxYGN8HTFyQBMicZ csqm3ytZ5nPm6+TSgms1h xw9nvjDy9DwSa EVVahmXfaLyvENT7z5EcJ p40N0JzmRzpm7JjYsz9qj 70kQEuf1X1zWG1XKdcZNR cpB5rVZkuZiP0 VKVuQsUszJ97yNYeWElcX t5ndJpwfOjnLD2wXJHixe pqEHUgnP8sQMYqqJKzxUa hOU8uJJImgzki i930XxHbPAJ8ACZgcWHtV 0QicE3uUnCaHCPoTGLhV9 CkxIYxDNixL126DVtaNxA 6DNRpusOsM0En LJJnnQrfAdR5a1U2Ht7Rt 3HzndvwIAL3IOixOVI2Ps P3OwHrMmF3P8QgXdg6CJG ytRdbOC1pD2Da RNUicjmwypnvgPU7TUBrX UWkuE46bNTuUBbiEg4fs9 G9h424CKVpBVZigZ31Fy0 udDogMTBwdCBU yV7iuerse9uhbcqiBsQkT FEqTGn8SAo9OPHdqSbsHl OmHWH4DpQ9VUD3hXTsnW3 awLnenpdgpZ2y Oyc+N50nbI4eZDB3HXW9w kqfFCYguiXuOR84IL45M6 RyPjwvdGFibGU+PGRpdiB abUroMP4iJkFx e6rjf6LeMKzrG1ZuLWYxN DonVmf9LFMcKJY1jNK7tW 0wPVCsXFokm7G4jIK8V7I hceIvdd0zg2yn PSPzDHmhC78pnUWzt3I3L DHucVM5IKJmaAuiFcVtcY 93Oyc+ZFScfQhld1GqBne ji0toy6fjvRw4 BxTrDXVqfkIwiSkxTSD2q 6FqEl75X15dKExoMXRjPN FyRMVgYHWsjOfrvl6bmN2 wIi8+PGNvbCB3 xRS4uS6kUZRgYvY8PZetE 956IfVfgUUsCgxvn3pky6 wenFx2KkPkXXRcxfAyoYj fWKA1l1OuTs97 H25jSYotQXKtQCWvWUGtV ZIhzWbien2zvS3wDr8+PC 9fp2yibp32mT31mZS+PHR xMWE4iNunFHfc CDKqyN5lNOhzGsJ3ERJvA lPumY21tPZyHVxbSt8ygT ufdKhzNU8uXYEainszl51 9JyYeb9rkLCZc pKLhIGrrSRS2Z54jn8W4K NMpFPWvIFG5kHB0zM8xeF lnbjogbGVmdDsgdmVydGl dSCuvUXpdU763 IHRvcDsnPlBhdGllbnQgT oRyMDq0F9SsQzv2PPLeuQ nnSU8ctGQsINvfLf5nhHs gqMypQG9lPMEg fblsh689WjHhd9miELCrq BEaAMheNEU6D53bz8K1ID AjOITbDCU5dHB4yR3aaQf nbjogbGVmdDsg yvZtkCycVHyrLMyhR462S HRvcDsnPkJpcnRoIERhdG B8AC79RY81vEHya6I9iIT 2T3KzUFKkxpbw xnfpiEA3ZYCyYMSkkS94S u6niAmtBi4oANTeGAU7AJ VjkCGfC0NmwU0lXrKjFSE cOBXsF9DiqHWr YTifP407AQabGbW9JDMns wKjH0ZeCZQwaXrxTuB1y9 G1Rn1XJ0H9ZY87UN16tAD xl3C9rWF2D3Na ZXIvomdbbnuczHB6YARuV XYziE22Ti1zqMksAz3oIX TdOAK3QFIwaRNsS1NbuS6 yOiAjMDAwMDAw M3BupLZaZFicJ400ZMnvH xA1DHOnotSyB7IrLOLwzJ qzInG2u3N2Gj8MUZy2XA3 8ZL94cPOdn2D7 uFV6Q1UpGYIphyvufeabe EG8NXFzUZQfgB42Fo1gxF kgUl4hEESuPND9CYPlcLS iP8BmwT7cOjZq FTOjNPWnI4CwiIBsAAkeG 665XGhmLmF1DDQcvxRsL4 FzBVFvtUakFyF0j7T4Zj3 XMZAdOJ51OBW8 fTS2VV25SL55D4SjJdstt GFibGU+PHRhYmxlIHdpZH RoPScxMDAlJyBzdHlsZT0 eUq9rFRAoXZUy ePosfEEzYsLyy9lhXTIhI CcqVA4oyPevV5RyjHZ7MD Nay7p3Pt52Z52nG0JmgPW +BCAusRK1yLZ1 xV8uEhSbUzJ7DQwqR649K aRkbWFhJkiqj0iik2tgoV p0NsH9GNPccrFskMumYLV 4w5HkJh65A05d IHdpZHRoPSIxNSUiIHZhb Kkpxb8njF7qPs5+PGNvbC U9oFB0wB8pOkTgShD4WTp rC710OmVezMFr Ddhva2wht4skyXw5KaBiP MCxiiUsfTxtSRG3y2ZiFf 53Q3PsqZtqz2TeDnp4xp0 0bKJtv6F1rWZ1 F6PjABPrudkygRJucQscI K4sSXLtdzzuKMHvjY1iSU FsF0l8SvTwLqY0VGveH5Q vjrL0XFHsyMPf HTutPPF5F27lx1L6AWAgK ZOkDHK8kPP7aO1ytVaoos ogbGVmdDsgdmVydGljYWw wDKrcV889WVYx mYmjKAAkzB2gOFOigROjw NrmVN6mUDTmltmsDgSPNl 5FUywgQlJJVFROQVkgTkl VE2mTPU95RU07 vMUqb8C6rYX7C0CiPZAso tlffphtqRP7BZYyTEJjbU 08jFJfKJtoDd3mu4D3x30 7HPCoPLCgbX64 Rd3xzYovRTZzbAWFmY6oi erhb7kzuefcSdHdJJRdFL w5ZVf5ZFWllLtrByMgJHI 2FvC1HRK3tYTu dV5xrSvyxhauzA5xXkh+M KAyKCykTJe0RjvadKP+PH LtERG1eClaYBurCDWccS9 xRPOgU0x2LdMf XsM9XKtgZ1PqBNQtlhxiK l89vI5fAfWfNgK3NXieH8 EgljO6GQBaoGDeFFwjREN 5B79cf9A5RZGi CCOdNRD6iUZ3fW0sqXzdj jogbGVmdDsgdmVydGljYW ndZYxpH323IHIcnVagMvN lJNcpDFMsFL44 TV50tJIaf6M9xLN0J4WwY IGtllrpbicalMF4TIVdBG GtuY81lOExDMchIv0ow2X 0b569FDNrNIKi mN46Zr7pjLtxUFYcpDZOg J4dwlfrd9xmhxiiGiMwQG BfUCs7XLb0KBHbuKmoGrY tRGB7KcV6COW6 fKJkgK0lyTfrsbhofT5uH yc+ZdFAHAwBMP16NM30lE Lrk6F4yKU7G8ThACXqjci fkjdvrSC2DAFe WPPfyI73bPWcVDhvZe4qj 0I5y104XZDaJMWdyH76Zb 0qpLgfHSDmzBTYzY1ljgu sn4krihbeMyNk GABpKBe3JUg3PUOcaGwtY pDpVBC6OeN7ERG2gPXofZ 9grJovynhoeF2sXtr+RW1 gxxbbvkP2ZQ03 QV96T0PlMcslyEEteOR+P HRhYmxlIHdpZHRoPScxMD AsUxTslJuwDV8mGj4hJGI yLWNvbGxhcHNl WvVkw7ecUWPoUOckQN6va XuqQ6LwiHS2KBVbm2q6Lm 63A31hL4UqfFR+PGNvbCB 5jYI8kS7xVjQo DxQ8TTosV568VbVotSSzT ozho7zwh5xoiAw8ErUkZO VebmIvqIvkTWH6c6QvTc9 3B50tQLfaUFVn UPNuMMHwZWMzjSimsu0cx G9wIi8+ENGshBB9cDI7qU 8yViTgSjA7YWrbC063PyT ylBApRtouL47x L4LiwRA+PYDvEwl4HZDyg UhaOD8zgMClOXvmUa5iIM J3QuYjQwIkAPfkS8TsEDR pbmctcmlnaHQ6 ARFtGEFuuQ36Fz2asVrnT y4mZJUsWTH8IAHltQWlV5 HayM9bIcYqQEPxYNNsQ9H msNUbMUpkW992 OFhrHnE1QCKjfhZxJ7YoC VRalHhlKbH6s9Z1Ye9KfK vjfTJdVY9eHdEzNIg6V2D uAlr2TFGmcPbt NI4ffLOmLZedXy5lyOpac LsqUP1tEBOspmqbl705Pg Lry7rsLBOsiJLwRJlpMUU 4I54ln1Y7NIQc RETnXPM4qYB9gX7gnJzxg jogbGVmdDsgdmVydGljYW dgFNqjR994VXNhrRkxFiE DIzy3T8WjItm8 QOGhfQyyRV5epARvQUrgY j0vgKoqfYwqSH9uYJAjzn mct220BxWts6lcKPDrjND zBPerQKK5Q18v y6F6JOYxUINzCQG3zOG6s H9nkPcuumsppEIajAuznw SdaLmnYMpsURvyZ406HNV daVbfSb6CFxe9 K7DdQxr1ZUHduThkLN2aa BTyPKxtQt3ksJyglMsrQT 0cXSSnltdld941CmRlj0b kIDEwcHQgVGlt LJZ2Y94fa3A4CYRaSTJvO NM3qHF9kY4xfObtpbxybE VmdDsgdmVydGljYWwtYWx eG716MJYzwNwc PlBheWVyOjwvdGQ+PC90c d65L0JrFahfOdp7NMUqIS U6rAW2bP1wRJDaZAgda6W 2aEV3U0UrzlXe ci1 (more content not included)... [facility] ED Clinical Summaryon 2021 ED Clinical Summary [facility] - Emergency Department [address] [place] [id number] ED Clinical Summary PERSON INFORMATION Name: BRANDY BOND Age: 31 Years Sex: FEMALE : 1990 MRN: Acct#: Visit Reason: Dental pain; Dental pain; DENTAL PAIN Arrival: 03/06/2022 04:38:30 Discharge: 03/06/2022 05:43:00 LOS: 000 01:05 Check In: 03/06/2022 04:38:30 Checkout:03/06/2022 05:43:00 Address: [address] [place] [address] PCP: Provider, None PROVIDER INFORMATION Provider Role Assigned Unassigned Chantal Dumont TERRAZZO HELPER Nurse 03/06/2022 04:49:46 Ari Juarez DO ED Provider 03/06/2022 05:05:51 VITALS INFORMATION Vital Sign Triage Latest Temperature Tympanic Temperature Temporal Artery Pulse Rate 94 bpm 94 bpm O2 Sat 98 % 98 % Respiratory Rate 18 br/min 18 br/min Blood Pressure /99 mmHg /99 mmHg MEDICAL INFORMATION Medications Given: Allergy Information: sulfa drug PHYSICIAN DOCUMENTATION DISCHARGE INFORMATION: Discharge Disposition: Home Discharge Location: Home PATIENT EDUCATION INFORMATION Instructions: Dental Caries, Adult, [id number] Follow-Up: With: Address: When: None Provider [address] [place] [address] Within 3 to 5 days Comments: Percocet for pain, as needed (will cause constipation) purchase sugarless gum to put over the two cavity holes, will shield from irritations avoid smoking as much as possible, since smoke irritates the cavities find some bone or dental wax at the pharmacy to put over the holes you are welcomed to return anytime. Duane JUAREZ ER PHYSICIAN< Katie Ortiz DIAGNOSIS: Pain due to dental caries Patient Understands: Yes - Patient/family/caregi arley verbalizes understanding of instructions given Comment: [facility] ED Note - Otheron 03-06-2022 ED Note - Other [id number]# [id number] [facility] ED Note - Physicianon 2021 ED Note - Physician Patient: BRANDY BOND Age: 31 years Sex: FEMALE : 1990 Associated Diagnoses: Pain due to dental caries Author: Ari Juarez DO Basic Information Time seen: Date & time 03/06/2022 05:06:00. History source: Patient. Arrival mode: Private vehicle, walking. History limitation: None. History of Present Illness The patient presents with This patient presents to the emergency room for request for dental pain in 2 areas in her mouth, #32 lateral, and what I think is #15 posterior. According to the patient's , the patient has been seeing her dentist, has an appointment coming up, was seen at [facility] couple days ago and given some cotton balls to put lidocaine on her teeth, and she has had pain meds to as well, she is now out of the pain medications. She still is taking antibiotics. She states she has pain to touch, and for the air and food going over the cavities. She does not want a shot for pain today. She states she is not a diabetic, not , does smoke, does not require work excuse she states. She has had no fevers, she denies history of any heart valve disorder, she denies any synthetic joints. On exam, the patient is tearful, but good eye contact, supple neck, no anterior posterior supraclavicular nodes, her lungs are clear, there is no expiratory wheeze or rales or paradoxical chest motion. She is somewhat overweight, no offense. Her face is symmetric speech precise, she does not have any buccal or lingual swelling around these 2 areas but there is cavitations at these 2 areas among otherwise very well taking care of teeth. There is no Ludewig's. There is no submandibular gland swelling or tenderness. I told the patient what she needs to do is go to the gas station on the way home this morning am, to obtain sugarless gum, placed over these hole so that the air, food, skin, will not irritate the dental roots. To this the patient agreed, medication provided for home. I told him to slat pickler some dental wax tomorrow to replace the sugarless gum. Medical Decision Making Orders Launch Orders Pharmacy: Percocet 5 mg-325 mg oral tablet (Prescribe): 1 tab(s), PO, q6hr (int), PRN: as needed for pain, 10 tab(s), 0 Refill(s) acetaminophen-oxycodo ne 325 mg-5 mg oral tablet (Order): 2 tab(s), PO, Once, Launch Orders Pharmacy: Lidocaine Viscous 2% mucous membrane solution (Order): 15 mL, PO, Once. Reexamination/ Reevaluation Time: 03/06/2022 05:21:00 . Vital signs Patient refused pain shots Impression and Plan Diagnosis Pain due to dental caries ([id number] K02.9, Discharge, Medical) Plan Condition: Unchanged. Disposition: Discharged: time 03/06/2022 05:21:00. Patient was given the following educational materials: Dental Caries, Adult, [id number]-Vtld. Follow up with: None Provider Within 3 to 5 days Percocet for pain, as needed (will cause constipation) purchase sugarless gum to put over the two cavity holes, will shield from irritations avoid smoking as much as possible, since smoke irritates the cavities find some bone or dental wax at the pharmacy to put over the holes you are welcomed to return anytime. Duane JUAREZ ER PHYSICIAN< Katie Ortiz. [Electronically Signed on: 03/06/2022 21:10 EDT] Ari Juarez DO [Electronically Signed on: 03/06/2022 21:10 EDT] Ari Juarez DO [Verified on: 03/06/2022 21:10 EDT] Ari Juarez DO [facility] ED Patient Summaryon 022 ED Patient Summary [facility] - Emergency Department [address] [place] [address] PATIENT DISCHARGE INSTRUCTIONS Patient Information Name: BRANDY BOND Age: 31 Years Date of : 1990 Reason For Visit: Dental pain; Dental pain; DENTAL PAIN Arrival Time: 03/06/2022 04:38:30 Primary Care Physician: Provider, None Attending Physician: Ari Juarez DO Comment: Visit Diagnosis: Diagnoses This Visit Dental pain ([id number]) Dental pain ([id number]) Pain due to dental caries (K02.9) Prescription Information: If you have been given a prescription for narcotics, seek immediate medical attention if you have any difficulty breathing or any sudden status changes such as confusion and sleepiness. If you or anyone you know is experiencing suicidal thoughts, mental health, alcohol and/or drug addiction problems; contact the [facility] 31/03 Crisis Hotline -Text 4HDEP ju 936988. If you received any narcotics, sedation, or any other medication that causes drowsiness for the next 24 hours, unless otherwise directed: ? Do not drive a car. ? Do not operate machinery such as power tools, lawn mowers, drills, sewing machines, or stoves ? Avoid alcoholic beverages and drugs for allergies, nerves, or sleep ? Do not make important personal or business decisions or sign any legal documents With: Address: When: None Provider [address] [place] [address] Within 3 to 5 days Comments: Percocet for pain, as needed (will cause constipation) purchase sugarless gum to put over the two cavity holes, will shield from irritations avoid smoking as much as possible, since smoke irritates the cavities find some bone or dental wax at the pharmacy to put over the holes you are welcomed to return anytime. Duane JUAREZ ER PHYSICIAN< Katie Ortiz Medication Information: The exam and treatment you received today in the [facility] Emergency Department were for an urgent problem and are not intended as complete care. It is important for you to follow up with a doctor, nurse practitioner, or physician?s preschool assistant principal for ongoing care. If your symptoms become worse or you do not improve as expected and you are unable to reach your usual health care provider, you should return to the Emergency Department, we are available 24 hours a day. For those patients who have received Radiology results, the interpretation of your X-ray as given to you by our Emergency Department physician is only a preliminary report. The Radiologist will review your films and if there is a change in the diagnosis you will be notified by phone. Please make sure you have provided a working phone number so we can reach you if necessary. In the event that you had a lab culture while you were a patient in the Emergency Department, you will be notified by phone if there is a need to change your antibiotic. Please make sure you have provided a working phone number so we can reach you if necessary. [facility] Emergency Department has provided you with a complete list of medications post discharge. Please inform your nurse ldr/provider of your visit and for further instruction on these medications. Any specific questions regarding your chronic medications and dosages should be discussed with your primary care physician(s) and/or pharmacist. New Medications Printed Prescriptions acetaminophen-oxycodo ne (Percocet 5 mg-325 mg oral tablet) 1 tab(s) Oral every 6 hours as needed as needed for pain. Refills: 0. Medications to Continue That Have Not Changed Other Medications amoxicillin (amoxicillin 250 mg oral capsule) 1 cap(s) Oral 3 times a day for 10 Days. ibuprofen (ibuprofen 800 mg oral tablet) 1 tab(s) Oral Every 6 hours. Visit Information Allergies: Substance Reaction Symptoms Type Comments sulfa drug Drug Vital Signs: Vitals and Measurements this Visit (last charted value for your 03/06/2022 visit) Vital Signs This Visit Temperature Temporal: 37.1 DegC Peripheral Pulse Rate: 94 bpm Respiratory Rate: 18 br/min Systolic Blood Pressure: 144 mmHg Diastolic Blood Pressure: 99 mmHg SpO2: 98 % Oxygen Therapy: Room air Measurements This Visit Height/Length Dosin.940 cm Height/Length Estimated: 154.940 cm Weight Dosin.360 kg Weight Estimated: 89.360 kg Problems List: Problem Onset Comments No Problems found Patient Education Dental Caries, Adult Dental caries are spots of decay (cavities) in teeth. They are in the outer layer of your tooth (enamel). Treat them as soon as you can. If they are not treated, they can spread decay and lead to painful infection. What are the causes? This condition is caused by acid that is produced when bacteria in your mouth break down sugary foods and liquids. What increases the (more content not included)... [facility] Encounters Encounter Date Encounter Type Care Provider Facility Start: 01-18-2023 End: 01-18-[address] NONE LISTED REQUEST Facility: Start: 09-30-2022 End: 10-01-[address] NONE LISTED REQUEST Facility:[facility] Start: 06-03-2022 End: 06-03-[address] HOLDEN BERGERON . Facility:[facility] Start: 05-23-2022 End: 05-23-[address] TEJINDER GRAY . Facility:[facility] Start: 03-19-2022 End: 03-20-2022 ambulatory NONE LISTED REQUEST Facility:[facility] Start: 03-04-2022 End: 06-27-[address] AMBROSE ORTA . Facility:[facility] Payers Date Payer Category Payer Unknown [id number] [id number] 1990 Unknown [id number] [id number] 1990 Unknown [id number] [id number] [id number] 1990 Unknown [id number] [id number] [id number] 1990 Unknown [id number] [id number] [id number] 1990 Unknown [id number] [id number] [id number] 1958 Self-pay [id number] 1958 Self-pay Clinical Note 06-03-2022 Note Date & Type Note Facility 06-03-2022 Note PROCEDURE: XR HAND L T MIN 3V HISTORY: Acute pain due to injury ; pain in palm of hand after falling COMPARISON: None. FINDINGS: BONES:No fracture, acute abnormality, or significant arthropathy. SOFT TISSUES:No visible soft tissue swelling. EFFUSION:None visible. OTHER: Negative. IMPRESSION: 1. No acute bone abnormality. 2. No radiopaque foreign body. Electronically authenticated by: AMANDA QUINTERO Date: 2022-06-03 14:57 [facility] Clinical Note 03-06-2022 Note Date & Type Note Facility 03-06-2022 Note Education Materials Dentistry Dental Caries, Adult Dental caries are spots of decay (cavities) in teeth. They are in the outer layer of your tooth (enamel). Treat them as soon as you can. If they are not treated, they can spread decay and lead to painful infection. What are the causes? This condition is caused by acid that is produced when bacteria in your mouth break down sugary foods and liquids. What increases the risk? This condition is more likely to develop in people who: ? Drink a lot of sugary liquids. ? Eat a lot of sweets and carbohydrates. ? Drink water that does not have fluoride. ? Do not clean their teeth regularly. ? Take medicines that decrease saliva. What are the signs or symptoms? Symptoms of this condition include: ? White, brown, or black spots on the teeth. ? Pain as the decay goes deeper into the tooth. ? Swelling or bleeding in the gums. How is this treated? This condition is treated with a procedure to remove decay and to restore the tooth. Follow these instructions at home: ? Take good care of your mouth and teeth. This keeps them healthy. ? Carrier your teeth 2 times a day. Use toothpaste with fluoride in it. ? Floss your teeth once a day. ? If your dentist prescribed an antibiotic medicine, take it as told. Do not stop taking the antibiotic even if your condition gets better. ? Keep all follow-up visits as told by your dentist. This is important. This includes all cleanings. How is this prevented? ? To prevent dental caries: ? Carrier your teeth every morning and night. Use fluoride toothpaste. ? Floss your teeth once a day. ? Get regular dental cleanings. ? If told by your dentist: ? Wash your mouth with prescription mouthwash (chlorhexidine). ? Put topical fluoride on your teeth. ? Drink water with fluoride in it. ? Drink water instead of sugary drinks. ? Eat healthy meals and snacks. ? Have fluoride treatments in the dentist's office and sealants put on your teeth, if told by your dentist. Contact a doctor if: ? You have symptoms of tooth decay. Summary ? Dental caries are spots of decay (cavities) in teeth. It is important to treat this as soon as you see them. ? This condition is caused by an acid that comes when sugar breaks down in your mouth. ? To prevent this condition, brush your teeth often and have regular dental cleanings. ? Take an antibiotic to treat an infection, if told by your dentist. Do not stop taking the antibiotic even if your condition gets better. ? Have regular dental cleanings and keep all follow-up visits. This information is not intended to replace advice given to you by your health care provider. Make sure you discuss any questions you have with your health care provider. Document Revised: 08/11/2020 Document Reviewed: 08/11/2020 [employer] Patient Education ? 2020 [employer] [facility] Summary Purpose Family History No Family History Records FoundNo Family History Records Found Advance Directives No Advanced Directives Records FoundNo Advanced Directives Records Found Additional Source Comments INFORMATION SOURCE (unrecogn ized section and content) DATE CREATED AUTHOR 03/14/2022 [facility] DATE CREATED AUTHOR AUTHOR'Alexys PFEIFFER BILLIESULY 01/22/2023 [facility] FOR RECORDS PERTAINING TO PATIENTS WHO ARE OR HAVE BEEN ENROLLED IN A CHEMICAL DEPENDENCY/SUBSTANCEABUSE PROGRAM, SOME INFORMATION MAY BE OMITTED. This clinical summary was aggregated from multiple sources. Caution should be exercised in using it in the provision of clinical care. This summary normalizes information from multiple sources, and as a consequence, information in this document may materially change the coding, format and clinical context of patient data. In addition, data may be omitted in some cases. CLINICAL DECISIONS SHOULD BE BASED ON THE PRIMARY CLINICAL RECORDS. [employer] [facility]. provides no warranty or guarantee of the accuracy or completeness of information in this document.
--- NOTE | 2023-11-14 19:26 | US_ITS ---
The [address] [address] Patient Name: BRANDY BOND MRN: [id number] date: 1990 Sex: F Assigned Patient Location: ER Current Patient Location: ED.MAIN Accession/Order Number: [id number] Exam Date: 11/14/2023 19:45 Report Date: 11/14/2023 20:32 At the request of: ADELAIDE DUBON Procedure: US right upper quadrant EXAMINATION: US right upper quadrant TECHNIQUE: Limited ultrasound of the abdomen was performed. Grayscale and color flow Doppler imaging. HISTORY: cholelithiasis. COMPARISON: CT scan 11/13/2023 FINDINGS: Liver: The liver demonstrates normal homogeneous echotexture and normal size. Gallbladder/biliary: Several small shadowing echogenic stones of the gallbladder. No gallbladder wall thickening or pericholecystic fluid. The common extrahepatic duct diameter measures 4.5mm. There is no intra or extrahepatic biliary dilatation. There is no visualized obstructing biliary stone. Pancreas: The pancreas is not adequately assessed due to overlying bowel gas. Right Kidney: Unremarkable with no mass lesion or hydronephrosis. Other findings: None US/US right upper quadrant IMPRESSION: No acute upper abdominal abnormality. Cholelithiasis. Electronically authenticated by: SABRA SAMANO Date: 11/14/2023 20:32
--- NOTE | 2023-11-14 19:34 | ED_ITS ---
HPI - Abdominal Pain General Chief Complaint: Abdominal Pain Stated Complaint: Abdominal Pain Time Seen by Provider: 11/14/23 19:22 Source: patient Mode of arrival: walk-in Limitations: no limitations History of Present Illness HPI narrative: patient seen yesterday with abdominal pain. 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 she had pain RUQ and RLQ. she now returns complaining pain RUQ and nausea. Not able to work due to pain. No fever. Did try to see gynecology but because she did not have insurance she was not seen MD elicited complaint: Reports abdominal pain Related Data Home Medications Medication Instructions Recorded Confirmed No Known Home Medications 11/12/23 11/12/23 Allergies Allergy/AdvReac Type Severity Reaction Status Date / Time Sulfa (Sulfonamide Allergy Verified 11/12/23 23:51 Antibiotics) peanuts Allergy Uncoded 11/12/23 23:51 Review of Systems ROS Status of ROS 10 or more systems reviewed and unremark able except as noted in history and below Exam Constitutional Vital Signs, click to edit/add: Last Vital Signs Temp 98.1 F 11/14/23 19:12 Pulse 105 H 11/14/23 19:12 Resp 22 11/14/23 19:12 BP 127/84 11/14/23 19:12 Pulse Ox 99 11/14/23 19:12 O2 Del Method Room Air 11/14/23 19:12 Common normals: no apparent distress, oriented x3, alert and well nourished General appearance: in distress Other: mod distress HENMT Common normals: normocephalic and head/scalp atraumatic Eye Common normals: EOMs intact bilaterally and conjunctivae normal Respiratory Common normals: normal respiratory effort, no retractions, no use of accessory muscles and clear to auscultation bilaterally Cardio Common normals: S1 normal heart sound and S2 normal heart sound Rate: tachycardic GI Other: mod RUQ tenderness. Mild RLQ tenderness. minimal periumbilical tenderness Extremity Common normals: normal to inspection and full ROM Neuro Common normals: oriented x3, CN's II-XII intact bilaterally, moves all extremities and no focal motor deficits Psych Appearance: grossly normal Course Vital Signs Vital signs: Vital Signs Temperature 98.1 F 11/14/23 19:12 Pulse Rate 105 H 11/14/23 19:12 Respiratory Rate 22 11/14/23 19:12 Blood Pressure 127/84 11/14/23 19:12 Pulse Oximetry 99 11/14/23 19:12 Oxygen Delivery Method Room Air 11/14/23 19:12 Temperature 98.1 F 11/14/23 19:12 Pulse Rate 105 H 11/14/23 19:12 Respiratory Rate 22 11/14/23 19:12 Blood Pressure 127/84 11/14/23 19:12 Pulse Oximetry 99 11/14/23 19:12 Oxygen Delivery Method Room Air 11/14/23 19:12 MDM - Abdominal Pain MDM Narrative Medical decision making narrative: patient returns with abdominal pain. Seen yesterday and found to have teratoma. CT commented the gallbladder was normal. GB ultrasound tonight with findings of cholelithiasis. Patient feeling better after one dose of fentanyl and toradol. WBCs and LFTs normal. Patient discharged home in improved condition. Patient to follow up with gen. surgeon Lab Data Labs: Lab Results 11/14/23 11/14/23 Range/Units 19:32 21:35 WBC 10.2 (4.0-11.0) 10^3/uL RBC 4.78 (4.20-5.40) 10^6/uL Hgb 12.5 (12.0-16.0) g/dL Hct 40.6 (36.0-48.0) % MCV 84.9 (81.0-99.0) fL MCH 26.2 L (26.7-34.0) pg MCHC 30.8 (29.9-35.2) g/dL RDW 13.1 (11.0-15.0) % Plt Count 304 (150-450) 10^3/uL MPV 9.0 L (9.5-13.5) fL Neut % (Auto) 53.8 (43.0-75.0) % Lymph % (Auto) 38.3 (20.5-60.0) % [place] % (Auto) 5.6 (1.7-12.0) % Eos % (Auto) 1.5 (0.9-7.0) % Baso % (Auto) 0.5 (0.2-2.0) % Neut # (Auto) 5.5 (1.4-6.5) 10^3/uL Lymph # (Auto) 3.9 H (1.2-3.8) 10^3/uL [place] # (Auto) 0.6 (0.3-0.8) 10^3/uL Eos # (Auto) 0.2 (0.0-0.7) 10^3/uL Baso # (Auto) 0.1 (0.0-0.1) 10^3/uL Abs Immat Gran (auto) 0.03 (0.00-0.03) 10^3/uL Imm/Tot Granulo (auto) 0.3 (0.0-0.5) % Sodium 140 (136-145) mmol/L Potassium 3.7 (3.5-5.1) mmol/L Chloride 103 (98-107) mmol/L Carbon Dioxide 27.5 (21.0-32.0) mmol/L Anion Gap 13.2 BUN 9.0 (7.0-18.0) mg/dL Creatinine 0.68 (0.55-1.02) mg/dL Est GFR ( Amer) >60 (>=60) Est GFR (Non-Af Amer) >60 (>=60) BUN/Creatinine Ratio 13.2 Glucose 115 H (74-106) mg/dL Lactate 0.8 (0.4-2.0) mmol/L Calcium 8.8 (8.5-10.1) mg/dL Total Bilirubin 0.5 (0.2-1.0) mg/dL AST 18 (15-37) U/L ALT 44 (14-59) U/L Alkaline Phosphatase 76 (46-116) U/L Total Protein 7.2 (6.4-8.2) g/dL Albumin 3.5 (3.4-5.0) g/dL Globulin 3.7 g/dL Albumin/Globulin Ratio 0.9 Lipase 21.0 (16.0-77.0) U/L Urine Color Lt. yellow (YELLOW) Urine Clarity Clear (CLEAR) Urine pH 6.5 (5.0-9.0) Ur Specific [place] 1.015 (1.005-1.025) Urine Protein Negative (NEG/TRACE) mg/dL Urine Glucose (UA) Negative (NEGATIVE) mg/dL Urine Ketones Negative (NEGATIVE) mg/dL Urine Occult Blood Negative (NEGATIVE) Urine Nitrite Negative (NEGATIVE) Urine Bilirubin Negative (NEGATIVE) Urine Urobilinogen 0.2 (0.2-1.0) EU/dL Ur Leukocyte Esterase Trace A (NEGATIVE) Urine RBC 0-2 (0-2) #/HPF Urine WBC 0-2 A (NONE SEEN) #/HPF Ur Squamous Epith Cells Rare (NONE/RARE) #/LPF Urine Crystals None seen (None Seen) #/HPF Urine Bacteria None seen (NONE SEEN) #/HPF Urine Casts None seen (NONE SEEN) #/LPF Urine Mucus None seen (NONE SEEN) Imaging Data Abdominal x-ray: Radiologist's impression: ITS Impressions Upper Quadrant Ultrasound 11/14/23 19:26 IMPRESSION: No acute upper abdominal abnormality. Cholelithiasis. Electronically authenticated by: SABRA SAMANO Date: 11/14/2023 20:32 Discharge Plan Discharge Stand Alone Forms: Portal Instructions Chief Complaint: Abdominal Pain Clinical Impression: Cholelithiasis Patient Disposition: Home, Self-Care Prescriptions / Home Meds: No Action No Known Home Medications Instructions: Gallstones (ED) Additional Instructions: follow up with Dr Bradshaw Referrals: Physician,Non-Staff, MD [Primary Care Provider] - 1 week
--- NOTE | 2023-11-14 19:36 | PC.NURSE ---
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 Johnson office, they looked at her results and told her over the phone that she needs surgery but they would not do it due to her not having insurance Pt states she has been taking Tylenol and Motrin at home but can't control the pain Pt is tearful on arrival
[2023-11-14 19:43] LABS: Basophils Absolute Auto 0.1 10^3/uL (0.0-0.1); Basophils Percent Auto 0.5 % (0.2-2.0); Eosinophils Absolute Auto 0.2 10^3/uL (0.0-0.7); Eosinophils Percent Auto 1.5 % (0.9-7.0); Hematocrit 40.6 % (36.0-48.0); Hemoglobin 12.5 g/dL (12.0-16.0); Immature Granulocytes Abs Auto 0.03 10^3/uL (0.00-0.03); Immature Granulocytes Pct Auto 0.3 % (0.0-0.5); Lymphocytes Absolute Auto 3.9 10^3/uL (1.2-3.8); Lymphocytes Percent Auto 38.3 % (20.5-60.0); Mean Corpuscular HGB Conc 30.8 g/dL (29.9-35.2); Mean Corpuscular Hemoglobin 26.2 pg (26.7-34.0); Mean Corpuscular Volume 84.9 fL (81.0-99.0); Monocytes Absolute Auto 0.6 10^3/uL (0.3-0.8); Monocytes Percent Auto 5.6 % (1.7-12.0); Neutrophils Absolute Auto 5.5 10^3/uL (1.4-6.5); Neutrophils Percent Auto 53.8 % (43.0-75.0); Platelet Count 304 10^3/uL (150-450); Red Blood Count 4.78 10^6/uL (4.20-5.40); Red Cell Distribution Width 13.1 % (11.0-15.0); White Blood Count 10.2 10^3/uL (4.0-11.0)
[2023-11-14] MEDS: 0.9 % SODIUM CHLORIDE 1,000 ML 999 ML IV (19:51)
[2023-11-14] MEDS: FENTANYL CITRATE/PF 100 MCG/2 ML VIAL 50 MCG IV (19:52)
[2023-11-14] MEDS: ONDANSETRON PF 4 MG/2 ML VIAL IV (19:52)
[2023-11-14 19:58] LABS: Alanine Aminotransferase 44 U/L (14-59); Albumin Globulin Ratio 0.9; Albumin Level 3.5 g/dL (3.4-5.0); Alkaline Phosphatase 76 U/L (46-116); Anion Gap 13.2; Aspartate Amino Transferase 18 U/L (15-37); BUN Creatinine Ratio 13.2; Bilirubin Total 0.5 mg/dL (0.2-1.0); Calcium 8.8 mg/dL (8.5-10.1); Carbon Dioxide 27.5 mmol/L (21.0-32.0); Chloride 103 mmol/L (98-107); Estimated GFR (African America >60 (>=60); Estimated GFR (Non-African Ame >60 (>=60); Globulin 3.7 g/dL; Glucose 115 mg/dL (74-106); Potassium 3.7 mmol/L (3.5-5.1); Sodium 140 mmol/L (136-145); Total Protein 7.2 g/dL (6.4-8.2)
[2023-11-14 20:01] LABS: Lactate/Lactic Acid 0.8 mmol/L (0.4-2.0)
[2023-11-14 21:42] LABS: Bilirubin Urine NEGATIVE (NEGATIVE); Blood Urine NEGATIVE (NEGATIVE); Clarity Urine CLEAR (CLEAR); Color Urine LT. YELLOW (YELLOW); Glucose Urine UA NEGATIVE (NEGATIVE); Ketones Urine NEGATIVE (NEGATIVE); Leukocyte Esterase Urine TRACE (NEGATIVE); Nitrite Urine NEGATIVE (NEGATIVE); Protein Urine NEGATIVE (NEG/TRACE); Specific Gravity Urine 1.015 (1.005-1.025); Urobilinogen Urine 0.2 EU/dL (0.2-1.0); pH Urine 6.5 (5.0-9.0)
[2023-11-14 21:47] LABS: Urine Microscopic Indicated YES
[2023-11-14 21:49] LABS: Bacteria Urine NONE SEEN #/HPF (NONE SEEN); Crystals Seen? None Seen #/HPF (None Seen); Mucus Urine NONE SEEN (NONE SEEN); RBC Urine 0-2 #/HPF (0-2); Squamous Epithelial Cell Urine RARE #/LPF (NONE/RARE); WBC Urine 0-2 #/HPF (NONE SEEN)
[2023-11-14 21:50] LABS: Cast Seen? NONE SEEN #/LPF (NONE SEEN)
[2023-11-14] MEDS: KETOROLAC TROMETHAMINE 30 MG/ML VIAL IVP (21:57)
== END 2023-11-14 22:39 | disposition home or self-care (01) ==
PROVIDERS: Emergency Provider Internal Medicine
DX: K80.20 Calculus of gallbladder without cholecystitis without obstruction (principal)
CPT/HCPCS: 36415; 76705; 80053; 81001; 83605; 83690; 85025; 96374; 96375; 99284

== ENCOUNTER 2024-06-06 16:04 | Emergency (ER) | payer SELFPAY ==
[2024-06-06] VITALS (10 sets, daily range): BP systolic 100–139; BP diastolic 74–107; PULSE 88–95; TEMP 37.1; O2SAT 96–100; BMI 35.7
--- OUTSIDE RECORDS SUMMARY | 2024-06-06 16:08 | XMS_ITS | CCD ---
Author Organization [facility] Care Team Providers Care Oil Lease Buyer Name Role Phone REQUEST, DR NONE LISTED Primary Care Unavaila ble DELLA ., VANESSA Admitting Unavailable ADELAIDE DUBON Consulting Unavailable DELLA ., VANESSA Attending Unavailable DELLA ., VANESSA Consulting Unavailable HARMEET PRAJAPATI Consulting Unavailable BRENT, EMI Consulting Unavailable PAY ., DR HATCH Attending Unavailable ZIEBER, DR AMANDA Severino Consulting Unavailable PAY ., DR HATCH Admitting Unavailable REQUEST, DR LEIJA LISTED Primary Care Unavaila ble YAROSH ., EMI Consulting Unavailable HAY ., DR MARR Attending Unavailable HAY ., DR MARR Admitting Unavailable REQUEST, NONE LISTED Primary Care Unavaila ble JOSE ACHTANA ., MELE ROBERTSON Consulting Unavailabl e REQUEST, DR LEIJA LISTED Primary Care Unavaila ble LUIS, DR DARRELL Severino Admitting Unavailable LUIS, DR DARRELL Severino Attending Unavailable LUIS, DR DARRELL Severino Consulting Unavailable JULIETTE ., KVNG Consulting Unavailable ASHUTOSHNEHAL Consulting Unavailable MARKER ., DR BOGGS Attending Unavailable MARKER ., DR BOGGS Consulting Unavailable MARKER ., DR BOGGS Admitting Unavailable REQUEST, DR LEIJA LISTED Primary Care Unavaila ble REQUEST, DR LEIJA LISTED Primary Care Unavaila ble DELLA ., VANESSA Admitting Unavailable DELLA ., VANESSA Attending Unavailable DELLA ., VANESSA Consulting Unavailable EASTON GERMAIN Consulting Unavailable Allergies Allergy Classification Reported Allergen(s) Allergy Type Date of Onset Reaction(s) Facility (1 source) peanut allergenic extract Drug Allergy [facility] Repository (1 source) Sulfonamides (Antibiotic) Drug allergy (disorder) [facility] Problems Active Problems Problem Classification [...] 01-18-2023 BASO # 0.1 103/ul Normal 0.0-0.1 [facility] Comment on above: Performed By: #### C BC ####[facility] [address] [place], [place] [address]Rz. Janet Dariel Basophils/100 WBC (Bld) 0.5 % Normal 0.2-2.0 [facility] Comment on above: Performed By: #### C BC ####[facility] [address] [place] [id number]. Janet Vieira EO # 0.2 103/ul Normal 0.0-0.7 [facility] Comment on above: Performed By: #### C BC ####[facility] [address] [place] [address]Dr. Janet Vieira Eosinophils/100 WBC (Bld) 1.6 % Normal 0.9-7.0 [facility] Comment on above: Performed By: #### C BC ####[facility] [address] [place], [place] [address]Dr. Janet Vieira Erythrocyte distribution width (RBC) [Ratio] 13.1 % Normal 11.0-15.0 [facility] Comment on above: Performed By: #### C BC ####[facility] [address]id[address]zan[address] [place], [place] [address]Dr. Janet Vieira Hematocrit (Bld) [Volume fraction] 38.2 % Normal 36.0-48.0 [facility] Comment on above: Performed By: #### C BC ####[facility] [address]who[address] [place], [place] [address]Dr. Janet Vieira Hemoglobin (Bld) [Mass/Vol] 12.1 g/dL Normal 12.0-16.0 [facility] Comment on above: Performed By: #### C BC ####[facility] [address] [place], [place] [address]Dr. Janet Vieira IG # 0.04 10e3/ul Critically high 0.00-0.03 [facility] Comment on above: Performed By: #### C BC ####[facility] [address] [place], [place] [address]Dr. Janet Vieira IG % 0.4 % Normal 0.0-0.5 [facility] Comment on above: Performed By: #### C BC ####[facility] [address] [place], [place] [address]Dr. Amandanette Vieira LYMPH # 3.1 103/ul Normal 1.2-3.8 [facility] Comment on above: Performed By: #### C BC ####[facility] [address] [place] [id number]. Janet Dariel Lymphocytes/100 WBC (Bld) 31.7 % Normal 20.5-60.0 [facility] Comment on above: Performed By: #### C BC ####[facility] [address] [place] [id number]. Jaent Vieira MANUAL DIFF REQ NO Normal [facility] Comment on above: Performed By: #### C BC ####[facility] [address] [place] [id number]. Janet Vieira MCH (RBC) [Entitic mass] 26.0 pg Critically low 26.7-34.0 [facility] Comment on above: Performed By: #### C BC ####[facility] [address] [place], [place] [address]Dr. Janet Vieira MCHC (RBC) [Mass/Vol] 31.7 g/dL Normal 29.9-35.2 [facility] Comment on above: Performed By: #### C BC ####[facility] [address] [place] [id number]. Janet Vieira MCV (RBC) [Entitic vol] 82.0 fL Normal 81.0-99.0 [facility] Comment on above: Performed By: #### C BC ####[facility] [address] [place], [place] [address]Dr. Janet Vieira MONO # 0.7 103/ul Normal 0.3-0.8 [facility] Comment on above: Performed By: #### C BC ####[facility] [address] [place] [id number]. Janet Vieira Monocytes/100 WBC (Bld) 6.8 % Normal 1.7-12.0 [facility] Comment on above: Performed By: #### C BC ####[facility] [address] [place], [place] [address]Dr. Janet Vieira NEUT # 5.7 103/ul Normal 1.4-6.5 [facility] Comment on above: Performed By: #### C BC ####[facility] [address] [place] [address]Dr. Janet Vieira Neutrophils/100 WBC (Bld) 59.0 % Normal 43.0-75.0 [facility] Comment on above: Performed By: #### C BC ####[facility] [address] [place] [address]Dr. Janet Vieira Platelet mean volume (Bld) [Entitic vol] 8.8 fL Critically low 9.5-13.5 [facility] Comment on above: Performed By: #### C BC ####[facility] Rewdav[address]lx[address] [place], [place] [address]Dr. Janet Vieira PLT 272 103/ul Normal 150-450 [facility] Comment on above: Performed By: #### C BC ####[facility] [address] [place], [place] [address]Dr. Janet Vieira RBC 4.66 106/ul Normal 4.20-5.40 [facility] Comment on above: Performed By: #### C BC ####[facility] [address] [place], [place] [address]Dr. Janet Vieira WBC 9.6 103/ul Normal 4.0-11.0 [facility] Comment on above: Performed By: #### C BC ####[facility] [address]iawwe[address]uvw[address] [place], [place] [address]Dr. Janet Vieira ER URINE PROFILEon 3 Bilirubin Ql (U) Negative Normal NEGATIVE [facility] Comment on above: Performed By: #### Lorie RUR, PREGU ####[facility] [address] [place], [place] [address]Dr. Janet Vieira Clarity (U) CLEAR Normal CLEAR [facility] Comment on above: Performed By: #### Lorie RUR, PREGU ####[facility] [address] [place] [address]Dr. Amandanette Vieira Color (U) LT. YELLOW Normal YELLOW [facility] Comment on above: Performed By: #### Lorie RUR, PREGU ####[facility] P[address]qv[address] [place], [place] [address]Dr. Janet Dariel ERUAHD A micrscopic examination will be performed if indicated. Normal [facility] Comment on above: Performed By: #### E RUR, PREGU ####[facility] Ktopiav[address] [place], [place] [address]Dr. Janet Vieira Glucose Ql (U) Negative Normal NEGATIVE [facility] Comment on above: Performed By: #### E RUR, PREGU ####[facility] Urvsoqzagw[address] [place], [place] [address]Dr. Janet Vieira Hemoglobin Ql (U) Negative Normal NEGATIVE [facility] Comment on above: Performed By: #### E RUR, PREGU ####[facility] Mojffsmvsx[address] [place], [place] [address]Dr. Amandanette Vieira Ketones Ql (U) Negative Normal NEGATIVE [facility] Comment on above: Performed By: #### E RUR, PREGU ####[facility] [address] [place], [place] [address]Dr. Janet Vieira LEUKOCYTES Negative Normal NEGATIVE [facility] Comment on above: Performed By: #### E RUR, PREGU ####[facility] [address]pa[address] [place], [place] [address]Dr. Janet Vieira Nitrite Ql (U) Negative Normal NEGATIVE [facility] Comment on above: Performed By: #### E RUR, PREGU ####[facility] Vedpjsxwwp[address] [place], [place] [address]Dr. Janet Dariel pH (U) 6.0 [pH] Normal 5-9 [facility] Comment on above: Performed By: #### E RUR, PREGU ####[facility] [address]ze[address] [place], [place] [address]Dr. Janet Vieira SPEC GRAVITY <=1.005 Abnormal 1.005-<=1.025 [facility] Comment on above: Performed By: #### E RUR, PREGU ####[facility] [address] [place], [place] [address]Dr. Janet Vieira UA PROTEIN Negative Normal NEGATIVE/ TRACE [facility] Comment on above: Performed By: #### E RUR, PREGU ####[facility] [address] [place] [address]Dr. Janet Vieira UR MICRO IND NOT INDICATED Normal [facility] Comment on above: Performed By: #### E RUR, PREGU ####[facility] [address] [place] [address]Dr. Janet Vieira Urobilinogen Qn (U) 0.2 {Leia'U}/dL Normal 0.2 - 1. 0 [facility] Comment on above: Performed By: #### E RUR, PREGU ####[facility] F[address] [place], [place] [address]Dr. Janet Vieira URon 01-18-2023 , QUAL Negative Normal NEGATIVE [facility] Comment on above: Performed By: #### E RUR, PREGU ####[facility] Y[address]uz[address]vbq[address] [place], [place] [address]Dr. Janet Vieira PROF 14(COMP METB)on 023 Albumin [Mass/Vol] 3.3 g/dL Critically low 3.4-5.[address] [facility] Comment on above: Performed By: #### C MP ####[facility] [address]xfy[address] [place], [place] [address]Dr. Janet Vieira Albumin/Globulin [Mass ratio] 1.0 {ratio} Normal [facility] Comment on above: Performed By: #### C MP ####[facility] Aes[address]bys[address] [place], [place] [address]Dr. Janet Vieira ALP [Catalytic activity/Vol] 74 U/L Normal 46-116 [facility] Comment on above: Performed By: #### C MP ####[facility] [address]jh[address] [place], [place] [address]Dr. Janet Vieira ALT [Catalytic activity/Vol] 42 U/L Normal 14-59 [facility] Comment on above: Performed By: #### C MP ####[facility] [address]uz[address] [place], [place] [address]Dr. Janet Vieira Anion gap [Moles/Vol] 12.2 mmol/L Normal [facility] Comment on above: Performed By: #### C MP ####[facility] [address] [place] [address]Dr. Janet Vieira AST [Catalytic activity/Vol] 19 U/L Normal 15-37 [facility] Comment on above: Performed By: #### C MP ####[facility] [address] [place], [place] [address]Dr. Janet Dariel Bilirubin [Mass/Vol] 0.5 mg/dL Normal 0.2-1.0 [facility] Comment on above: Performed By: #### C MP ####[facility] Uhwdwhvuqa[address] [place], [place] [address]Dr. Janet Dariel Calcium [Mass/Vol] 8.5 mg/dL Normal 8.5-10.1 [facility] Comment on above: Performed By: #### C MP ####[facility] U[address]fi[address] [place], [place] [address]Dr. Janet Dariel Chloride [Moles/Vol] 105 mmol/L Normal 98-107 [facility] Comment on above: Performed By: #### C MP ####[facility] Labfkkphdb[address] [place], [place] [address]Dr. Jaent Dariel CO2 [Moles/Vol] 26.8 mmol/L Normal 21.0-32.0 [facility] Comment on above: Performed By: #### C MP ####[facility] [address]zg[address] [place], [place] [address]Dr. Janet Dariel Creatinine [Mass/Vol] 0.73 mg/dL Normal 0.55-1.02 [facility] Comment on above: Performed By: #### C MP ####[facility] Gittxtkmol[address] [place], [place] [address]Dr. Janet Vieira EGFR-AF PUERTO RICAN >60 Normal >=60 [facility] Comment on above: Performed By: #### C MP ####[facility] [address] [place], [place] [address]Dr. Janet Vieira EGFR-NON AF PUERTO RICAN >60 Normal >=60 [facility] Comment on above: Performed By: #### C MP ####[facility] [address] [place] [address]Dr. Janet Vieira Globulin (S) [Mass/Vol] 3.4 g/dL Normal [facility] Comment on above: Performed By: #### C MP ####[facility] [address] [place] [address]Dr. Janet Vieira Glucose [Mass/Vol] 105 mg/dL Normal 74-106 [facility] Comment on above: Performed By: #### C MP ####[facility] [address] [place] [address]Dr. Janet Dariel Potassium [Moles/Vol] 4.0 mmol/L Normal 3.5-5.1 [facility] Comment on above: Performed By: #### C MP ####[facility] [address] [place], [place] [address]Dr. Janet Dariel Protein [Mass/Vol] 6.7 g/dL Normal 6.4-8.2 [facility] Comment on above: Performed By: #### C MP ####[facility] [address] [place], [place] [address]Dr. Janet Dariel Sodium [Moles/Vol] 140 mmol/L Normal 136-145 [facility] Comment on above: Performed By: #### C MP ####[facility] [address] [place] [address]Dr. Janet Dariel Urea nitrogen [Mass/Vol] 9.0 mg/dL Normal 7.0-18.0 [facility] Comment on above: Performed By: #### C MP ####[facility] [address] [place] [address]Dr. Janet Dariel Urea nitrogen/Creatinine [Mass ratio] 12.3 mg/mg Normal [facility] Comment on above: Performed By: #### C MP ####[facility] [address] [place] [address]Dr. Janet Dariel XR HIP RT 2 3V W PELVISon [...] EASTON GERMAIN Date: 2023-01-18 11:19 Normal [facility] CARDIAC DARRELL 3-6on 3 CK [Catalytic activity/Vol] 71 U/L Normal 26-192 [facility] Comment on above: Performed By: #### C MREP ####[facility] [address] [place] [id number]. Janet Vieira CK.MB [Mass/Vol] 0.15 ng/mL Normal <=3.60 [facility] Comment on above: Performed By: #### C MREP ####[facility] [address] [place] [address]Dr. Janet Vieira HSTROP 5.1 pg/mL Normal 4.0-51.3 [facility] Comment on above: Result Comment: CUT- OFF POINTS HAVE BEEN ESTABLISHED BASED ON THE FOURTH UNIVERSAL DEFINITIONS OF MYOCARDIAL INFARCTION. THE UPPER REFERENCE LIMIT (URL) OF TROPONIN, DEFINED THE 99TH PERCENTILE OF cTnI DISTRIBUTION IN A REFERENCE POPULATION, HAS BEEN CONFIRMED THE DECISION THRESHOLD FOR [place] DIAGNOSIS. Performed By: #### C MREP ####[facility] [address] [place] [id number]. Janet Vieira CARDIAC DARRELL ADMITon 023 CK [Catalytic activity/Vol] 72 U/L Normal 26-192 [facility] Comment on above: Performed By: #### C ROB CMADM ####[facility] [address] [place] [address]Dr. Janet Vieira CK.MB [Mass/Vol] ng/mL Normal <=3.60 [facility] Comment on above: Performed By: #### C ROB CMADM ####[facility] [address] [place] [address]Dr. Janet Vieira HSTROP <4.0 Normal 4.0-51.3 [facility] Comment on above: Result Comment: CUT- OFF POINTS HAVE BEEN ESTABLISHED BASED ON THE FOURTH UNIVERSAL DEFINITIONS OF MYOCARDIAL INFARCTION. THE UPPER REFERENCE LIMIT (URL) OF TROPONIN, DEFINED THE 99TH PERCENTILE OF cTnI DISTRIBUTION IN A REFERENCE POPULATION, HAS BEEN CONFIRMED THE DECISION THRESHOLD FOR [place] DIAGNOSIS. Performed By: #### C MP, CMADM ####[facility] [address] [place] [address]Dr. Janet Vieira SUMEET 37 ng/mL Normal 9-82 [facility] Comment on above: Performed By: #### C MP, CMADM ####[facility] [address] [place] [address]Dr. Janet Vieira CBC AUTO DIFFon 09-30-2022 BASO # 0.0 103/ul Normal 0.0-0.1 [facility] Comment on above: Performed By: #### C BC #### [facility] [address] [place] [address] [address] Janet Vieira Basophils/100 WBC (Bld) 0.5 % Normal 0.2-2.0 [facility] Comment on above: Performed By: #### C BC #### [facility] [address] [place] [address] [address] Janet Vieira EO # 0.1 103/ul Normal 0.0-0.7 [facility] Comment on above: Performed By: #### C BC #### [facility] [address] [place] [address] [address] Janet Vieira Eosinophils/100 WBC (Bld) 1.5 % Normal 0.9-7.0 [facility] Comment on above: Performed By: #### C BC #### [facility] [address] [place] [address] [address] Janet Vieira Erythrocyte distribution width (RBC) [Ratio] 13.0 % Normal 11.0-15.0 [facility] Comment on above: Performed By: #### C BC #### [facility] [address] [place] [address] [address] Janet Vieira Hematocrit (Bld) [Volume fraction] 37.1 % Normal 36.0-48.0 [facility] Comment on above: Performed By: #### C BC #### [facility] [address] [place] [address] [address] Janet Vieira Hemoglobin (Bld) [Mass/Vol] 12.4 g/dL Normal 12.0-16.0 [facility] Comment on above: Performed By: #### C BC #### [facility] [address] [place] [address] [address] Janet Vieira IG # 0.02 10e3/ul Normal 0.00-0.03 [facility] Comment on above: Performed By: #### C BC #### [facility] [address] [place] [address] Dr. Janet Vieira IG % 0.2 % Normal 0.0-0.5 [facility] Comment on above: Performed By: #### C BC #### [facility] [address] [place] [address] Dr. Janet Vieira LYMPH # 3.2 103/ul Normal 1.2-3.8 [facility] Comment on above: Performed By: #### C BC #### [facility] [address] [place] [address] Dr. Janet Vieira Lymphocytes/100 WBC (Bld) 36.6 % Normal 20.5-60.0 [facility] Comment on above: Performed By: #### C BC #### [facility] [address] [place] [address] Dr. Janet Vieira MANUAL DIFF REQ NO Normal [facility] Comment on above: Performed By: #### C BC #### [facility] [address] [place] [address] Dr. Janet Vieira MCH (RBC) [Entitic mass] 25.9 pg Critically low 26.7-34.0 [facility] Comment on above: Performed By: #### C BC #### [facility] [address] [place] [address] Dr. Janet Vieira MCHC (RBC) [Mass/Vol] 33.4 g/dL Normal 29.9-35.2 [facility] Comment on above: Performed By: #### C BC #### [facility] [address] [place] [address] [address] Janet Vieira MCV (RBC) [Entitic vol] 77.6 fL Critically low 81.0-99.0 [facility] Comment on above: Performed By: #### C BC #### [facility] [address] [place] [address] [address] Janet Vieira MONO # 0.6 103/ul Normal 0.3-0.8 [facility] Comment on above: Performed By: #### C BC #### [facility] [address] [place] [address] [address] Janet Vieira Monocytes/100 WBC (Bld) 6.7 % Normal 1.7-12.0 [facility] Comment on above: Performed By: #### C BC #### [facility] [address] [place] [address] [address] Janet Vieira NEUT # 4.8 103/ul Normal 1.4-6.5 [facility] Comment on above: Performed By: #### C BC #### [facility] [address] [place] [address] [address] Janet Vieira Neutrophils/100 WBC (Bld) 54.5 % Normal 43.0-75.0 [facility] Comment on above: Performed By: #### C BC #### [facility] [address] [place] [address] [address] Janet Vieira Platelet mean volume (Bld) [Entitic vol] 8.7 fL Critically low 9.5-13.5 [facility] Comment on above: Performed By: #### C BC #### [facility] [address] [place] [address] [address] Janet Vieira PLT 303 103/ul Normal 150-450 [facility] Comment on above: Performed By: #### C BC #### [facility] [address] [place] [address] [address] Janet Vieira RBC 4.78 106/ul Normal 4.20-5.40 [facility] Comment on above: Performed By: #### C BC #### [facility] [address] [place], [place] [address] Dr. Janet Vieira WBC 8.8 103/ul Normal 4.0-11.0 [facility] Comment on above: Performed By: #### C #### [facility] [address] [place], [place] [address] HEAD WO CONon [...] EMI KENNEDY Date: 2022-09-30 18:32 Normal [facility] CTA CHEST WO W CONon 023 [...] EMI KENNEDY Date: 2022-09-30 19:28 Normal [facility] D-DIMERon 09-30-2022 D-DIMER 0.68 mg/L FEU Critically high <=0.59 [facility] Comment on above: Performed By: #### D DIM, PT, PTT #### [facility] [address] [place] [address] Dr. Janet Vieira D-DIMER COMMENTS SEE BELOW Normal [facility] Comment on above: Result Comment: Incr eases [...] By: #### D DIM, PT, PTT #### [facility] [address] [place] [address] [address] Janet Vieira ER URINE PROFILEon 3 Bilirubin Ql (U) Negative Normal NEGATIVE [facility] Comment on above: Performed By: #### E JESSY DALEY PREGU #### [facility] [address] [place] [address] [address] Janet Vieira Clarity (U) CLEAR Normal CLEAR [facility] Comment on above: Performed By: #### E RUR, UMICRO, PREGU #### [facility] [address] [place] [address] [address] Janet Vieira Color (U) LT. YELLOW Normal YELLOW [facility] Comment on above: Performed By: #### JESSY DANIEL, PREGU #### [facility] [address] [place] [address] [address] Janet PENA A micrscopic examination will be performed if indicated. Normal [facility] Comment on above: Performed By: #### JESSY DANIEL, PREGU #### [facility] [address] [place] [address] [address] Janet Vieira Glucose Ql (U) Negative Normal NEGATIVE [facility] Comment on above: Performed By: #### JESSY DANIEL, PREGU #### [facility] [address] [place] [address] [address] Janet Vieira Hemoglobin Ql (U) MODERATE Abnormal NEGATIVE [facility] Comment on above: Performed By: #### JESSY DANIEL, PREGU #### [facility] [address] [place] [address] [address] Janet Vieira Ketones Ql (U) Negative Normal NEGATIVE [facility] Comment on above: Performed By: #### JESSY DANIEL, PREGU #### [facility] [address] [place] [address] [address] Janet Vieira LEUKOCYTES Negative Normal NEGATIVE [facility] Comment on above: Performed By: #### JESSY DANIEL, PREGU #### [facility] [address] [place] [address] [address] Janet Vieira Nitrite Ql (U) Negative Normal NEGATIVE [facility] Comment on above: Performed By: #### JESSY DANIEL, PREGU #### [facility] [address] [place] [address] [address] Janet Vieira pH (U) 5.5 [pH] Normal 5-9 [facility] Comment on above: Performed By: #### JESSY DANIEL, PREGU #### [facility] [address] [place] [address] [address] Janet Vieira SPEC GRAVITY <=1.005 Abnormal 1.005-<=1.025 [facility] Comment on above: Performed By: #### JESSY DANIEL PREGU #### [facility] [address] [place] [address] [address] Janet Vieira UA PROTEIN Negative Normal NEGATIVE/ TRACE [facility] Comment on above: Performed By: #### JESSY DANIEL, PREGU #### [facility] [address] [place] [address] [address] Janet Vieira UR MICRO IND INDICATED Normal [facility] Comment on above: Performed By: #### JESSY DANIEL, PREGU #### [facility] [address] [place] [address] [address] Janet Vieira Urobilinogen Qn (U) 0.2 {Leia'U}/dL Normal 0.2 - 1. 0 [facility] Comment on above: Performed By: #### JESSY DANIEL, PREGU #### [facility] [address] [place] [address] [address] Janet Vieira URon 09-30-2022 , QUAL Negative Normal NEGATIVE [facility] Comment on above: Performed By: #### JESSY DANIEL, PREGU #### [facility] [address] [address] [address] Janet Vieira PROF 14(COMP METB)on 023 Albumin [Mass/Vol] 3.4 g/dL Normal 3.4-5.0 [facility] Comment on above: Performed By: #### C ROB CMADM ####[facility] [address] [place] [address]Dr. Janet Vieira Albumin/Globulin [Mass ratio] 1.0 {ratio} Normal [facility] Comment on above: Performed By: #### C ROB, CMADM ####[facility] [address] [place] [address]Dr. Janet Vieira ALP [Catalytic activity/Vol] 80 U/L Normal 46-116 [facility] Comment on above: Performed By: #### C ROB, CMADM ####[facility] [address] [place] [id number]. Janet Viiera ALT [Catalytic activity/Vol] 44 U/L Normal 14-59 [facility] Comment on above: Performed By: #### C ROB, CMADM ####[facility] [address] [place] [id number]. Janet Vieira Anion gap [Moles/Vol] 11.4 mmol/L Normal [facility] Comment on above: Performed By: #### C ROB, CMADM ####[facility] [address] [place] [address]Dr. Janet Dariel AST [Catalytic activity/Vol] 22 U/L Normal 15-37 [facility] Comment on above: Performed By: #### C ROB, CMADM ####[facility] [address] [place], [place] [address]Dr. Janet Vieira Bilirubin [Mass/Vol] 0.3 mg/dL Normal 0.2-1.0 [facility] Comment on above: Performed By: #### C ROB, CMADM ####[facility] [address] [place], [place] [address]Dr. Janet Dariel Calcium [Mass/Vol] 8.7 mg/dL Normal 8.5-10.1 [facility] Comment on above: Performed By: #### C ROB, CMADM ####[facility] [address] [place], [place] [address]Dr. Janet Vieira Chloride [Moles/Vol] 103 mmol/L Normal 98-107 [facility] Comment on above: Performed By: #### C ROB, CMADM ####[facility] [address] [place], [place] [address]Dr. Janet Vieira CO2 [Moles/Vol] 26.6 mmol/L Normal 21.0-32.0 [facility] Comment on above: Performed By: #### C ROB, CMADM ####[facility] [address] [place], [place] [address]Dr. Yinette Vieira Creatinine [Mass/Vol] 0.58 mg/dL Normal 0.55-1.02 [facility] Comment on above: Performed By: #### C MP, CMADM ####[facility] [address] [place] [id number]. Janet Vieira EGFR-AF PUERTO RICAN >60 Normal >=60 [facility] Comment on above: Performed By: #### C MP, CMADM ####[facility] [address] [id number]. Janet Vieira EGFR-NON AF PUERTO RICAN >60 Normal >=60 [facility] Comment on above: Performed By: #### C ROB, CMADM ####[facility] [address] [place] [address]Dr. Janet Vieira Globulin (S) [Mass/Vol] 3.4 g/dL Normal [facility] Comment on above: Performed By: #### C ROB, CMADM ####[facility] [address] [place] [address]Dr. Amandanette Dariel Glucose [Mass/Vol] 101 mg/dL Normal 74-106 [facility] Comment on above: Performed By: #### C ROB, CMADM ####[facility] [address] [place] [address]Dr. Amandanette Vieira Potassium [Moles/Vol] 4.0 mmol/L Normal 3.5-5.1 [facility] Comment on above: Performed By: #### C MP, CMADM ####[facility] [address] [place] [address]Dr. Janet Dariel Protein [Mass/Vol] 6.8 g/dL Normal 6.4-8.2 [facility] Comment on above: Performed By: #### C MP, CMADM ####[facility] [address] [place] [address]Dr. Amandanette Vieira Sodium [Moles/Vol] 137 mmol/L Normal 136-145 [facility] Comment on above: Performed By: #### C MP, CMADM ####[facility] [address] [place] [address]Dr. Janet Vieira Urea nitrogen [Mass/Vol] 8.0 mg/dL Normal 7.0-18.0 [facility] Comment on above: Performed By: #### C ROB, JESSE ####[facility] [address] [place] [id number]. Janet Vieira Urea nitrogen/Creatinine [Mass ratio] 13.8 mg/mg Normal [facility] Comment on above: Performed By: #### C ROB, JESSE ####[facility] [address] [place] [id number]. Janet Vieira PROTIMEon 09-30-2022 INR Coag (PPP) [Relative time] 0.96 {INR} Normal [facility] Comment on above: Performed By: #### D DIM, PT, PTT #### [facility] [address] [place] [address] Dr. Janet Vieira INR GUIDELINES SEE BELOW Normal [facility] Comment on above: Result Comment: SANKET RED INR: 2.0 - 3.0 CONDITIONS NOT LISTED BELOW 2.5 - 3.5 FOR PROSTHETIC HEART VALVE REPLACEMENT 2.5 - 3.5 RECURRENT THROMBOSIS Performed By: #### D DIM, PT, PTT #### [facility] [address] [place] [address] Dr. Janet Vieira PT Coag (PPP) [Time] 10.2 s Normal 9.0-11.6 [facility] Comment on above: Performed By: #### D DIM, PT, PTT #### [facility] [address] [place] [address] Dr. Janet Vieira PTTon 09-30-2022 aPTT Coag (Bld) [Time] 25.2 s Normal 22.3-36.2 [facility] Comment on above: Performed By: #### D DIM, PT, PTT #### [facility] [address] [place] [address] Dr. Janet Vieira URINE MICROSCOPIC ONLYon BACTERIA NONE SEEN Normal NONE SEEN [facility] Comment on above: Performed By: #### E RURJESSY, PREGU #### [facility] [address] [address] [address] Janet Vieira Bacteria identified Cx Nom (U) NOT INDICATED Normal [facility] Comment on above: Performed By: #### JESSY DANIEL, PREGU #### [facility] [address] [place] [address] Dr. Janet Vieira CAST NONE SEEN Normal NONE SEEN [facility] Comment on above: Performed By: #### JESSY DANIEL, PREGU #### [facility] [address] [place] [address] Dr. Janet Vieira Crystals LM Nom (Urine sed) NONE SEEN Normal NONE SEEN [facility] Comment on above: Performed By: #### JESSY DANIEL, PREGU #### [facility] [address] [place] [address] Dr. Janet Vieira Epithelial cells LM Ql (Urine sed) RARE Normal NONE SEEN /RARE [facility] Comment on above: Performed By: #### JESSY DANIEL, PREGU #### [facility] [address] [place] [address] Dr. Janet Vieira MUCOUS NONE SEEN Normal NONE SEEN [facility] Comment on above: Performed By: #### JESSY DANIEL, PREGU #### [facility] [address] [place] [address] Dr. Janet Vieira RBC 0-2 Normal 0-2 [facility] Comment on above: Performed By: #### JESSY DANIEL, PREGU #### [facility] [address] [place] [address] Dr. Janet Vieira WBC NONE SEEN Normal NONE SEEN [facility] Comment on above: Performed By: #### JESSY DANIEL, PREGU #### [facility] [address] [place] [address] Dr. Janet Vieira XR CHEST 1 Von [...] HARMEET PRAJAPATI Date: 2022-09-30 18:27 Normal [facility] Covid-19 PCR (CVDTB)on 03-08 SARS-CoV-2 (COVID-19) RNA ZAC+probe Ql (Unsp spec) Not detected Normal NOT DETECTED [facility] Comment on above: Result Comment: This test is not yet approved or cleared by the [place] FDA. When there are no FDA-approved or cleared tests available, and other criteria are met, FDA can make tests available under an emergency access mechanism called an Emergency Use Authorization (EUA). The EUA for this test is supported by the [employer] of Health and Human Service's (HHS's) declaration [...] consistent with SARS-CoV-2. Performed By: #### C VDTB ####[facility] [address] [place] [id number]. Janet Vieira GROUP A STREP CULTUREon 03-08 S. pyogenes Ag Ql (Unsp spec) Culture Observations: NEGATIVE FOR GROUP A STREPTOCOCCUS. Normal [facility] Comment on above: Performed By: #### G RASTCX, SSCRN ####[facility] [address] [place] [id number] Vieira STREPT SCREENon 03-19-2022 STREP SCREEN A Negative Normal NEGATIVE [facility] Comment on above: Performed By: #### G RASTCX, SSCRN ####[facility] [address] [place] [id number]. Janet Vieira XR NECK SOFT TISSUEon 2021 XR [...] NEHAL BOYKIN Date: 2022-03-19 21:42 Normal [facility] Coding Summaryon 03-13-2022 Coding Summary HTMLBase 64 XeabozsvGDg3bBh+PGhlY WQ+NI3OGBNfH84keNKquU 5IC8gMKS1FYNETVDQKSK3 LHN5dmUH7EFndR8YfupGx YtybbMNzXR94FVr7KTP4p IayZIzvmY0nnIGsH9a0Og HqRU09lL49QNpaREMdIeY 3LjZpbjsgbWFy N7yoEtIyyAOxHcx+PHRhY mxlIHdpZHRoPScxMDAlJy BaoOpnXH5jGb2bJJEqVCA vbGxhcHNlOiBj q5xlDJSbECfjPN0xaVvxP 0MwaYB7WDSss5s1Lm74xF I+HOMcNTN8oWshTPivt89 8HeExo7ovOXN5 uWZtWLzlBEP6R87eb5Q7C TNpIDSoHXF4qJY8hL2xdB nvazfnD0XrdZSgDzL8FOL 5vSQlvZ4aoCjq vplaqQ3sKjl+K37YDM2NI KEIVC8CWwb1Q5HbTmkcfB I+DE28OLRpLG34aXLiuRQ bz0dkjDw5XcTv TQCqPWB5qQigLOdbx7MxF NHyP47uyJZcb7D9FUFboN htiCWyWqAdyCO8nW5vQSr mppvkr0ozafrl Caomv0puyi69eW91X68tE GrzKLYsPNW3QGGlRTDxiK qlne0vuG9jNm9+EOtwu4u fw1kgpQi4PwHl TXNnynDtrNhrLNP7u8OcB n88D5QxsBrkb7EcAfb5le 44fHQpz9H4fPO2IWprZSZ jaJ5dQKkgIeU3 KERmAoGpeZ04aIZyMIscA z0xcVutgMfsXS5hWIOzue nxULSqiV6mVCSnaFCdcHh vFW0dYGQempuj x211YzAqXWF2XHOcnAFkV 3PwaO9uTwVaGOZwFVPeU1 JztHZiEJxqA000VUudGuE 3IUWpoyHxG9Co EVWyaVrjWaB0o2O5Si1Dn 5ZshqjcFES1NOwdZKQ9Uc T5HiIwZhC2J5HmUfj1NGF fuQbfKT7cV8Te KKOnurptwasohTG0YRMqY AFucH04pQYhAEdvLj2ss2 W1x621PIPmWWOnvS53Fy1 udDogMTBwdCBU qJ9iphann3szuyxwBkHpU GKfKBf8JOe3WIGbeYdmNj HfMGX2YuS5KFW9qOAjvF4 cvWvsfgmbqN6g Oyc+J76ujN4pZSA7HYB2x tdsCSQbztKqAL70TS23M2 RyPjwvdGFibGU+PGRpdiB izHcwFK9gTfYr p3mmn1TrKKpmE5VfBSVlN CbrJbl2IAWlNED9aBD4wS 9jTEUfQOmrb4N0qNV4Y6Y rwaXxsx7iu7oh VUNrSKcuN03ycNMix4T6O QPvoBV8XIGryOwlKzOurT 93Oyc+MGVnuGvim3HrQrk wl4llk3qfjHq0 SzXqJKVawuSgfGdwSDY1k 2LhQl21O64tTXjsBWMtAV MeTTLgKIMlvTivyu3jfB6 wIi8+PGNvbCB3 qUA4uI6xSJBmHzC3KYywU 720LeCdsZXvIypow2ylm3 uqaYt6FnQuNKJznaIrcXz hOHS8t7YnQy18 A00iCAaeDUUbGXIxGEIpK GZokMczzt2szL5eZj6+PC 2xk6qvow81nX29jEX+PHR vZFS7hZpwYSgn AZAodO1rQGpiMdH8ZXUmN nUdoG77bYHhAHchDu8egS uobEsnIR0tXCAshhixr06 4OnFzo9aeQDOc mKAzMDmxITW8K05mf5Y5G AHqKUMuSAK7iBE1xM3bgV lnbjogbGVmdDsgdmVydGl pEJzaEDbnK707 IHRvcDsnPlBhdGllbnQgT kChVQq1K1BtUbd3HGKqjU jsOS9ntWEmPMkhXh2sfHl yzEnxHI4vNAXs xaiau496AeWok1zrMXJls LOfEFrnIHF0O51nh6L0CV FoBSEyMNH1bOD7vH3fhAs nbjogbGVmdDsg mmPieGglJUjbTMgqV988L HRvcDsnPkJpcnRoIERhdG J8AR17GY34bMEtn1H3xLB 2R5ItFHMxmtjp rqxlfWW5ZCWtZMOdoT52N h8ikVmzNm8sFITuKJF2WD WekUWsD6QhlF1yIzAmXIM tHTNyH5EgeTLm QVqgJ917JLbtApR6VFWxp rRjL6QlSXZivEotMlD4a5 U5Mp0GK5X2QK09PA86vCM dl0F1nFU3F6El FDNltluqpkyujDG3DJGcS TRttX56Es9uaPeiYz7oVI XqGVG8FVZpkPUmF7AygI2 yOiAjMDAwMDAw H2NwnCLxBRlxD567JQxbB fX5TZWaozWyU8VgKUDciV emDnU2e7D1Ve8ESNc4TP7 4YR48pYRsg1I7 lTU2T8KkWPVhbgazlhjyz FI4UGWaFIYprO47Nn4eaC okWx8oNZLoEUW0EEWpuIC yU7WtqC7pFrBm GNHyNHQbK2UjjLIoMBbyH 758JJvkOsJ0BSYojaKhG9 ThXDHdgGqfEgX3k1R2Vv9 AOGAkTF64ALB3 zTG2ZU01HO13S6AwPkufo GFibGU+PHRhYmxlIHdpZH RoPScxMDAlJyBzdHlsZT0 cZc2uHMExWGAv qOmorTByAjEhj3nvBVWpN PeeQU9zjSjvC0ShsKN9EG Clv7n4Ry23Z78yB5RpnAC +ADBocOY8fNI2 iM6fBdJoIiK3IFrsI490N oQkePPnRbwqm6upi0vlnR l8McU3GLJokiClkIxbQJH 9g5AmWs21E70n IHdpZHRoPSIxNSUiIHZhb Samfj3fwW0qRb1+PGNvbC M3qBW9qK9rQdZnGfG5PCs lF551FfIeuWLf Uifzb8pqo7hhqQu7FiOnS ENufjDheAotVSB6x8MsQq 79L6DkdQzvt3GxCct8vw3 7hWZgo9E6jYZ6 U6MvWQFzevafqHYqpCveV M3tDTSgygqiPVLuuC0bCU CzG9g2BzYxNrU6AYjjI8Z ghfK9DQYdiKUh LGgoHSL0E54je4A0KQCiS TFyIVE9aAA2oL0odRbqny ogbGVmdDsgdmVydGljYWw uUEtgA163LNAo uEtyMJTscQ8aLCHgwKHuy BzdTR4mHUMqjonjOjWHWn 5FUywgQlJJVFROQVkgTkl HK6jKXB74UA16 fZYhj3D0rDN0H3OtAKRjo rjtybcibFH2JYUrBBNsuO 44zUGfWWxtDv0fe6P6m91 2JMYfRDEneG45 Hx5avCjvZTKxuQVNjT4rn ewpt9mpbqsxYyRsGCHjRJ g6TQe6HUEwxQzwExQiEQD 9BtZ0XWY3lYWb xY7hzXzrrhnixA1qRlz+M VYcHYnqTSg5PqugyZK+PH ThWBV1wYrtENzzNLTgeH9 vJDWlM3m7JjYa MiN6GYsuU9RxUFKsycunH q64xK7hFjHzVlG9BCzdC0 ZxpdI9IVMrlCLjZZguGTV 5O68rh2E4HXYl UZNfGRE5zZT1fG3gnIdds jogbGVmdDsgdmVydGljYW glECguV562YZPhzDhwPaU jLDfcGAKhFK98 PB88nKVuo4Q8oTD3U5IbO WGrxveheshdfTY5TLQoTS JesD63jXFfQCmgBh0ev1I 7z079OZYuROGk iS19Bb2vaUgyNBMmoSNEd W2ugqsvb6fvhzrpClPtBB DyNOk3LOo9RFHwoKrvWzS hBAR5GoI5MIN8 pPQaoX1fjNrjondebW1vY yc+GhUCANfHLG24JZ09qB Lnn3Q8vBX2N5HpKGTcdxj hvxgjuHA3HGNw VCWoqQ85pZXlRLltCb3xf 0J1x320KYBzQYZdhS60Ja 8poGzwFNEtbIXJpM0gscd rf5zuvtrrVpQm CHYhLCs6TOr6NTDnwPbnZ cNlQNA8IfS4HYC7xKQxrT 6rbAfxboqvuD1uLxo+T1A 5H0UkJzbmiZK+ VG30LMCvGE22lYWdrNPix 5tlhZp5RuQsLYKuDRK6oC bzZQktd9AtODDuX28llQE kc4X1LBCjzEwc jTQlErPltRM8wH1iLEuba gwvv0yqmiucIcwan1pkuj 56dT66P42tBIhpVAHnXIG zMCUiIHZhbGln wx9vsU3cRq6+OSPnfWD8t PP2rR3lYuAtQxG9JAttE9 54AeUpkLZtMmheo3fdi7n lhSi8RpKsNQGs mlNndSceZRB2h8FsSx63G 29sIHdpZHRoPSIyMCUiIH DvxTbeyt4moD4rTj8+PC9 yu2zoyi15jD45 dHI+OXPrLQE0dBosUWkbV PVzrW7lXVugJpZ6KGFcOn QsjS15rXGeMPluVs7qzRx bqSwjOY3gQGWx szxzm769YcUfz8hfRGNth CAuULpdFAD0O16xn3D7JL BzIZNaJWU7iMS4jC2bmIc nbjogbGVmdDsg gqBksYdyGOeaUDqqT555M QHrxMthOyVulXQfK2gxzi IITZ5yWahwdZD+PHRkIHN 0eWxlPSdwYWRk sX5qRZGcU3g2WzVbLsH3L RswM8MbdqU1ZGRvwQPtTG IdgOYLiB7wqwrgb1nofmr gIzAwMDAwMDt0 XOy1XBLwhYnyOxIfXNA9Q sT4GXU2aPYxpF5hsNoaem mrrH1jCdd+RklOOjwvdGQ +RAUeWZU1pYjh WUxhSRJfpB9zORCtJ5l1U zVwBgB2RWzjO9CjlkK6KR SotXHsHKGmbGXGkL0bemk lg3dfhupmKnVl VMWjIHc2VXn1WZOubEdrI uGzJFN5OjY5DDN7eIMpmD 9rtMrcdvyebX1fWgo+TVJ OOjwvdGQ+PHRk PPP7jRewJHplZKWnxI6aQ BUrJ8r0SuLrYwC9VXugS5 MqwgU7VYVprTPfCCYofSA LlG7ujagff0tm yrsgZhAiUINlCSy1VJa8Q QLeaBaaBoTqWKQ1AvB2BM L3gUXstK1evOsqappnzB2 wOyc+BXN0CMV6 FU96KH26M7MqVwlhcYYhr +PHRhYmxlIHdpZHRoPS wqNCWiTdHqaFenLH7hKh4 yZGVyLWNvbGxh cHN (more content not included)... [facility] Coding Summary HTMLBase 64 KtmxduqiWOb5sYk+PGhlY WQ+ZC7KBGKeN60yiYMxyQ 6WX8tSTR1PXELAEAMQWZ3 NWV0bmVH8EKrzQ0OxqzLc MnsrbLLkAP79QNt0XVQ7s KhhCUuxqK9izHRgB4x2Zr KvHC15aG74PXrjWNQlEnT 3LjZpbjsgbWFy V3xvQeTshMKjGzv+PHRhY mxlIHdpZHRoPScxMDAlJy UcvQqxVF7wIo4wCELgOOX vbGxhcHNlOiBj p5uxTZCjEYivZR1aaJueW 2YflXU7ZJGhn2x2Ix21fL I+AGIcYCL9zMldTSegq58 6WzScc3taJFT9 sNQyIEpsVJQ3D17vp5N8K GYwNCFgCFU9kES4zR9kcL ghqdctN4XbeOZtFcU5WXR 2vYHlkL1izIne mxaqvU3wQqq+P42KYB0VB WXYMT5TSsa5Y6ZdDywquS I+GQ56KZPdVZ94gZUasVB yp8cveWa3EvNt MPNgFVS8dZdkKMfud3LeI BWtV27viVHqm7C1JPEmdO vuxDLxLkIhvRZ9oZ5iUAy wcqmbj9ujhfox Tlgdw7ejqt68wB51V64gV EmdCUXsWIE0MIDmMIApxE orab0ovO9jBo2+DEtrp0x ym2zroYf1IrOl AHHemuFuePneDNJ3u7QeI v39H8NgvUofa0UqBgj8lz 01vCFtw1X8oHA4JHjpVLJ seC6eUUshMbD7 QIYpYvSlxP52dEOgKCofI h8baDvwoOfyDS0iTFRsbh ajRYJqeF4aAEFxtKOfwOj kJJ6eTFTqlmya e157PbXnAUP1MTAbtKFdU 5MkgQ2vKiWgMFBjKKXmG7 AwxNSeDAjuG862MGozKyO 7NTLzaeYvL9Ln NNEltOdaTdL5n6I7Fa2La 5VhlymrHSO1HTuzRWC0Bo F2OcXlMhM8B8YaXuf8QMJ thXouDH4uS6Tw BHBataocyhoojQV1YOMiF IQhjZ65wMHnTDsrTv7ii8 B7n878DPPeYKGdwP72Yt6 udDogMTBwdCBU kI1zlgxdb3olduplAoHgP NVkTVp3XBb8HRRiiUrxAe ReKGO6KpR5TIR8nWIxiK6 hdBusjbiisR3x Oyc+H43ofV3kYHR1RUX5c oncOPSlbtKgQV98OL24E4 RyPjwvdGFibGU+PGRpdiB dzDizQR6cZyHg z5msv0NgOQfjC6YdLVVoD JxsTsw2EYVpLWR6wOE6nJ 9pSHTbGQesg8D0iHK3O1S kffXuwr4ms8zm IERyKUdtX21vsZAff4O7T NMwjTS2FOJvbNdmYbJbkF 93Oyc+SWPnrTyna4IlUsh ok8ydf2knzBa5 QgNuQVFbbfDkaLeiTNT4j 4TlEd22Z79aPJlrBHVmAJ ZnCCDkJVJqdOvclh5yqZ1 wIi8+PGNvbCB3 lHU2xA7fYLUjQtJ0OJtlC 583OdXxxPVoWtfhi2bit6 sypGi7GmHsYTSstiLozFe zWKE0d8ZxZo82 U84dDPojMXAfIIRwQKWyY VTvwIpunc0zvX5aPh1+PC 5qq5bsht90zR50sDB+PHR qUGK6eGfoRJsv ODUgkV2iZPaiKuB0QZJvD hGozV68lMPaWBqnDi5jbO jvwIyuSI4pBIWjcmhol05 6YmAiq5vrISAi sHXqBFzxSWQ4M25lk9F2P TYbIIHaGSR9eED1hJ1ksE lnbjogbGVmdDsgdmVydGl lAJbxEFlfG624 IHRvcDsnPlBhdGllbnQgT iLgKWz6V9OmWsh7NFRbkR twVF2anRJsVWiqRf5whVr umNxaOB0yGTPt dswmd845TmWfh0msOWVwd FIcAMtmEWT1B44as0B9IQ BvLSVqHUR3xKT2hM0fnGg nbjogbGVmdDsg lgJujJutFVnjRPshF263Y HRvcDsnPkJpcnRoIERhdG V0DD40IR67hCMmj5N9pGX 3G2EmCICexabx ftdrcED4TURpCFZsdV07G t0yvXtrDt1gVDSoCSS9EX CcbHVbW1XtzD2sRsMrLCQ sFUVkJ2TclQRv RJmiT210PWklDxL5ASQuy zViO2WmJXXquKmzEpQ3t3 V4Lx9AM2G1MU61FE28yUE yw8Z8iKF7Z4Ed XUMvjcmiiwyptWJ8QANkU FLjhO37Wy0eaBjjMo7xWL CtVPX5VUFkyVFwC8TctE3 yOiAjMDAwMDAw V9MqfODaKGmvO535NEsmA oU6KJGecsSrQ4AlHINngV cxAyI9m9S6Fy1GZNv9FB2 5KD69fGKok5I6 fLB0N9BuXPYstgryfqmjd VI4GRMoFZKubU40Gs5czT yvKt6pTVQzCCI1ZUWkbQH tP4NmyH4vXoOd UAMqACQyQ5UcuPHzYRruG 647TPdmHeD1MNRkpaWkE2 XvJYFxiCbhXgV6x9N4Fj9 RHYOkPC73SKP6 hBA9FA62AN94V9QbJhvpe GFibGU+PHRhYmxlIHdpZH RoPScxMDAlJyBzdHlsZT0 qHu1hKOClKYJk yJdonHZrXmZel5kuIVXtQ XzyQO6wyOmvR7TckLU3BU Dhm9z4Da23P94cO8DiaSG +IWBtxSR6sXK1 qU2hYcPxLpL4KJwfS395A uDbzKBwGpkce1hsx2zfjL v5YpN4VHGraeLloJvwNBW 2g7GrEg21Q88a IHdpZHRoPSIxNSUiIHZhb Uvwwz0soI2mYn0+PGNvbC U3pKD9vM3qZfLjLjX2DTl tW759LrFvsOZv Hiblj0pic9wyaMt9PbJzS YDjogRekEqxWHU2a2UzEg 62K1ZteHdhu3WzWlh0xq4 0aLEvr8J9zDU4 V2VaWHAngbbwfCRfbBsaW Q4vPZZqkcpfGULvgN9mZS SiG0d6JxFsOoK8RDgvJ7Q rwbR2GOHigBTj XAzqNID0V76ao6S6JSAkO XQeORK5mSX7mG0tvJmozx ogbGVmdDsgdmVydGljYWw tUJciF411NKNi aExyKIOjxQ0qENXvaPZbs SlbUM2cFAYtvujhTwTMGb 5FUywgQlJJVFROQVkgTkl WM1uDDQ75NM70 mZPkd7J8yFF4G8BgVUPws aizkflhcQH8WQYcCYMmxI 71yIFfPMalEn1aj0Y1d96 0PRZtZEZnuL86 Vr1rbUavKUKndITBiO5sd xjgh4gjnpyeNqUdNKWePX n8LXd6QUEcbUthKdSmXLJ 5KxN3KGN7pZFr dL9obMyarrwdcZ0bLlh+M PIqYJwlNFu3WsybqYG+PH BrWPL4yWgwGAodMGVdrG8 sZQVtE3a6UuWj IuY9MIleC2BbIMAqmuadZ y94vO0lZkDbPzA3AUdmG2 QvnuZ4PBZpfJWpVUysOBU 7G51ta8X9YSZq RUAwHOM8kBV7oB5nxUfki jogbGVmdDsgdmVydGljYW gxHVurI227EXDqpNjrCcJ uCDbtVWJxXZ04 TE23jIIjt4S4uSD3Q7BvW GMrbjzisijrsEA2MSJkRE FygO49tWVsHZuaAf3jo3N 9g501YBZiPSBe zI97Bo9cuVreLECqbVMKd N8fhxzwp0xprgovMtZzQJ UvDTg2QJj5GIVyrLmzAbQ mJGR6RrA0GSD6 wOAnmQ8hlOtwfjylzQ9lC yc+MlFSGWiYDL18SE27aI Osc8D6mMF2T4UtFPOfmnm yoqvuqRH5DTOx JYLsnZ05gGYsPSbhPn0wr 2D3t713SBSqRWQpyU57Tz 0mfFvbMOHmzVLLzA4hkgi fd7wivvypZpAw HSBxSLg0QSk0TXFvaLlwV jEtQOW8FdG4CQW4tTUbdT 2ifYkdqrxgcY2vKde+RW1 bindookY7CC80 SO01H7JuTcyizMLjkTE+P HRhYmxlIHdpZHRoPScxMD ElCfMqrFvjPH6wRv4fZYG yLWNvbGxhcHNl XeNsv0voFTYrGZeeZO7px VbfY8AaeDS2VLCks4d5Oy 05U31lQ4MorGB+PGNvbCB 6xRK2nH3vFyYl SkB7LFeqI970FyZgxCLkO xtfh2qyv4mhtPx5PwPlSH YvyxRpwIytJZB7h6GfNy0 1S20lABlnUTQm CKBcBPOhVUWuiYlxhk8uu G9wIi8+BHCciEE3aCG4yH 8jDaQrUgN3SMrmP468YaJ znDUyAwjtD33h W4EwxNW+FWEnHbf8XTAiy KchBE9gaVYsAUmqUv9eHO D0FfIsQqYqXCinY6WsDVS pbmctcmlnaHQ6 THZjMMGsjW51Iz0mtAztZ g1pNJYmRNS9HGLrzOBlM1 KpxL5sNnLbJLIgAKEaH7Q hkWTtZWqeL940 RPghFpY7YNDcblOfZ4XjT OTnzHdjJaZ4g0J0Gj4VpX hzmNPdNR2fRiIvLDr2W9T tEcg0VUOaqCel YL0wmWSvFYmtBl2rpIpph TvqIR4nVLNlvqgcw790Pr Yfw0prVOGbmMNhGJtjUCP 6F09hc9I0ELSh JJZzGBX4yLR0oM6ugTpat jogbGVmdDsgdmVydGljYW zjOIrhR756MGUcoXemHnT XKie4O0UzBpo1 PLMmwNmgPV4mcTMlEDmmK d8rxPqnwKmjWH5wMZSbsa mvf460JsGbz8wsDZAqhSD aMEtmWJD7X71p c1P9BTKsTFGxYHY5bKT1h I5yjVsfjqzzmHJkmRevty KzxUfuKTgnHSjbJ245XMR lgUslLe1WPsr0 E5AsHlf7CCJbnQggQQ1hf BBqXZfcYx8rlEuglPcrGB 3rZLPcerinl267CoKnb6e kIDEwcHQgVGlt ODI3C45ub4S7ZWCuVEIuA ER2uMI1iI0omOlekfejzU VmdDsgdmVydGljYWwtYWx wO718XRSlrMht PlBheWVyOjwvdGQ+PC90c f91V7DpRpizXll5WPUbDN P9aAH9xW9oTIGlUTbsn5H 3sCY0R4MqjuQh ci1 (more content not included)... Normal [facility] ED Clinical Summaryon 2021 ED Clinical Summary [facility] - Emergency Department [address] [place] [id number] ED Clinical Summary PERSON INFORMATION Name: BRANDY BOND Age: 31 Years Sex: FEMALE : 1990 MRN: Acct#: Visit Reason: Dental pain; Dental pain; DENTAL PAIN Arrival: 03/06/2022 04:38:30 Discharge: 03/06/2022 05:43:00 LOS: 000 01:05 Check In: 03/06/2022 04:38:30 Checkout:03/06/2022 05:43:00 Address: [address] [place] [id number] PCP: Provider, None PROVIDER INFORMATION Provider Role Assigned Unassigned Chantal Dumont [employer]ESSIONAL Nurse 03/06/2022 04:49:46 Ari Juarez DO ED [...] PATIENT EDUCATION INFORMATION Instructions: Dental Caries, Adult, [id number] Follow-Up: With: Address: When: None Provider [address] [place] [address] Within 3 to 5 days Comments: Percocet [...] arley verbalizes understanding of instructions given Comment: [facility] ED Note - Otheron 03-06-2022 ED Note - Other [id number] 0 [id number]# [email or web address] [facility] ED Note - Physicianon 2021 ED [...] an appointment coming up, was seen at [facility] couple days ago and given some [...] provided for home. 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 Disposition: Discharged: time 03/06/2022 05:21:00. Patient was given the following educational materials: Dental Caries, Adult, Aeer-do-Kbud. Follow up with: None Provider Within 3 [...] welcomed to return anytime. Duane JUAREZ ER PHYSICIANAlbert Ortiz. [Electronically Signed on: 03/06/2022 21:10 EDT] Ari Juarez DO [Electronically Signed on: 03/06/2022 21:10 EDT] Ari Juarez DO [Verified on: 03/06/2022 21:10 EDT] Ari Juarez DO Normal [facility] ED Patient Summaryon 022 ED Patient Summary [facility] - Emergency Department [address] [place], [place] [id number] PATIENT DISCHARGE INSTRUCTIONS Patient Information Name: BRANDY BOND Age: 31 Years Date of : 1990 Reason For Visit: Dental pain; Dental pain; DENTAL PAIN Arrival Time: 03/06/2022 04:38:30 Primary Care Physician: Provider, None Attending Physician: Ari Juarez DO Comment: Visit Diagnosis: Diagnoses This Visit Dental pain ([id number]) Dental pain ([id number]) Pain due to dental caries (K02.9) Prescription Information: If you have been given a prescription for narcotics, seek immediate medical attention if you have any difficulty breathing or any sudden status changes such as confusion and sleepiness. If you or anyone you know is experiencing suicidal thoughts, mental health, alcohol and/or drug addiction problems; contact the [facility] 31/03 Crisis Hotline -Text 5XUEC pu 181827. If you received any narcotics, sedation, or [...] documents With: Address: When: None Provider [address] [place] [address] Within 3 to 5 days Comments: Percocet for pain, as needed (will cause constipation) purchase sugarless gum to put over the two cavity holes, will shield from irritations avoid smoking as much as possible, since smoke irritates the cavities find some bone or dental wax at the pharmacy to put over the holes you are welcomed to return anytime. [facility]ane JUAREZ PHYSICIAN< Katie Ortiz Medication Information: The exam and treatment you received today in the [facility] Emergency Department were for an urgent problem and are not intended as complete care. It is important for you to follow up with a doctor, nurse practitioner, or physician?s financial planning assistant for ongoing care. If your symptoms become [...] so we can reach you if necessary. [facility] Emergency Department has provided you with a complete list of medications post discharge. Please inform your college or university department head/provider of your visit and for further instruction [...] increases the (more content not included)... Normal [facility] Encounters Encounter Date Encounter Type Care Provider Facility Start: 01-18-2023 End: 01-18-[address] NONE LISTED REQUEST Facility: Start: 09-30-2022 End: 10-01-[address] NONE LISTED REQUEST Facility: Start: 06-03-2022 End: 06-03-[address] HOLDEN BERGERON . Facility: Start: 05-23-2022 End: 05-23-[address] TEJINDER GRAY . Facility: Start: 03-19-2022 End: 03-20-2022 ambulatory NONE LISTED REQUEST Facility: Start: 03-04-2022 End: 03-04-[address] AMBROSE ORTA . Facility: Payers Date Payer Category Payer Unknown [id number] 2.16.84 [id number] 1990 Unknown [id number] 2.16.84 [id number] 1990 Unknown [id number] 2.16.84 [id number] 1990 Unknown [id number] 2.16.84 [id number] 1990 Unknown [id number] 2.16.84 [id number] 1990 Unknown [id number] 2.16.84 [id number] 1958 Self-pay [id number] 1958 Self-pay Clinical Note 06-03-2022 Note Date [...] by: AMANDA QUINTERO Date: 2022-06-03 14:57 [facility] Clinical Note 03-06-2022 Note Date & [...] and teeth. This keeps them healthy. ? Adams your teeth 2 times a day. Use [...] prevented? ? To prevent dental caries: ? Adams your teeth every morning and night. Use [...] provider. Document Revised: 08/11/2020 Document Reviewed: 08/11/2020 [employer] Patient Education ? 2020 [employer]. [facility] Summary Purpose Family History No Family History Records FoundNo Family History Records Found Advance Directives No Advanced Directives Records FoundNo Advanced Directives Records Found Additional Source Comments INFORMATION SOURCE (unrecogn ized section and content) DATE CREATED AUTHOR 03/14/2022 [facility] DATE CREATED AUTHOR AUTHOR'S KENTRELL ATSULY 01/22/2023 [facility] FOR RECORDS PERTAINING TO PATIENTS WHO [...] BE BASED ON THE PRIMARY CLINICAL RECORDS. [employer] provides no warranty or guarantee of the accuracy or completeness of information in this document.
--- NOTE | 2024-06-06 16:18 | XR_ITS ---
The [address] [address] Patient Name: BRANDY BOND MRN: [facility]:[id number] date: 1990 Sex: F Assigned Patient Location: ED.MAIN Current Patient Location: ER Accession/Order Number: [id number] Exam Date: 06/06/2024 16:50 Report Date: 06/06/2024 18:21 At the request of: DULCE MARIA JULIO Procedure: XR thoracic spine 2V XR thoracic spine 2V, 06/06/2024 3:50 PM CDT: History: fall. . Comparison: None. Technique: 2 view thoracic spine Findings/Impression: The thoracic vertebrae are normal in height and alignment. There is no fracture. The intervertebral disc spaces are preserved. Electronically authenticated by: ABBY NG Date: 06/06/2024 18:21
--- NOTE | 2024-06-06 16:18 | ECG_ITS ---
The [facility] Test Date: 2024-06-06 Pat Name: BRANDY BOND Department: Room: - Gender: Female Residential Carpenter: : 1990 Requested By: Order Number: [id number] Reading MD: EDLFIN CORNELIUS Measurements Intervals Trout Rate: 86 P: 18 MT: 132 QRS: 59 QRSD: 74 T: 46 QT: 342 QTc: 385 Interpretive Statements 1100 Sinus rhythm 1102 Sinus arrhythmia 4068 Nonspecific Twave abnormality 9130 borderline ECG Compared to ECG 01/18/2023 09:50:34 No significant changes Electronically Signed On 06-06-2024 20:39:36 EDT by DELFIN CORNELIUS
--- NOTE | 2024-06-06 16:18 | XR_ITS ---
The [address] [address] Patient Name: BRANDY BOND MRN: [id number] date: 1990 Sex: F Assigned Patient Location: ED.MAIN Current Patient Location: ER Accession/Order Number: [id number] Exam Date: 06/06/2024 16:50 Report Date: 06/06/2024 18:19 At the request of: DULCE MARIA JULIO Procedure: XR chest 1V XR chest 1V 06/06/2024 3:50 PM CDT: History: fall Comparison: None. Technique: 1 view chest Findings: The cardiomediastinal silhouette is normal. There is minimal left base atelectasis. Otherwise, the lungs are clear without infiltrate, effusion, or pneumothorax. The bones are intact. XR/XR chest 1V Impression: No acute cardiopulmonary process. Electronically authenticated by: ABBY NG Date: 06/06/2024 18:19
[2024-06-06 16:26] LABS: Basophils Absolute Auto 0.1 10^3/uL (0.0-0.1); Basophils Percent Auto 0.5 % (0.2-2.0); Eosinophils Absolute Auto 0.1 10^3/uL (0.0-0.7); Eosinophils Percent Auto 1.3 % (0.9-7.0); Hematocrit 40.8 % (36.0-48.0); Hemoglobin 13.6 g/dL (12.0-16.0); Immature Granulocytes Abs Auto 0.03 10^3/uL (0.00-0.03); Immature Granulocytes Pct Auto 0.3 % (0.0-0.5); Lymphocytes Absolute Auto 3.7 10^3/uL (1.2-3.8); Lymphocytes Percent Auto 37.3 % (20.5-60.0); Mean Corpuscular HGB Conc 33.3 g/dL (29.9-35.2); Mean Corpuscular Hemoglobin 26.9 pg (26.7-34.0); Mean Corpuscular Volume 80.8 fL (81.0-99.0); Mean Platelet Volume 9.3 fL (9.5-13.5); Monocytes Absolute Auto 0.7 10^3/uL (0.3-0.8); Monocytes Percent Auto 7.2 % (1.7-12.0); Neutrophils Absolute Auto 5.2 10^3/uL (1.4-6.5); Neutrophils Percent Auto 53.4 % (43.0-75.0); Platelet Count 336 10^3/uL (150-450); Red Blood Count 5.05 10^6/uL (4.20-5.40); Red Cell Distribution Width 12.8 % (11.0-15.0); White Blood Count 9.8 10^3/uL (4.0-11.0)
--- NOTE | 2024-06-06 16:36 | ED.GENADUL1 ---
HPI HPI - General Adult General Chief complaint: Seizure Stated complaint: Seizure Time Seen by Provider: 06/06/24 16:04 Source: patient Mode of arrival: ambulance Limitations: no limitations History of Present Illness HPI narrative: 33-year-old female presented to the emergency department because of a pseudoseizure. She was at work and had a stressful situation and she states she had a pseudoseizure. It happened outside and when she woke up she states her back was hurting no fever. She does not complain of a headache now. This happened just before coming into the emergency department. Related Data Home Medications ?Medication ?Instructions ?Recorded ?Confirmed No Known Home Medications 11/12/23 06/06/24 Allergies Allergy/AdvReac Type Severity Reaction Status Date / Time Sulfa (Sulfonamide Allergy Hives Verified 06/06/24 16:04 Antibiotics) peanuts Allergy Anaphylaxis Uncoded 06/06/24 16:04 Opioid HPI Opioid Management Most Recent Opioid Data: Last Pain Scale 10 11/14/23 19:52 Review of Systems ROS Narrative A ten point review of systems is negative except as noted above. PFSH PFSH Social History Little interest or pleasure in doing things: not at all Feeling down, depressed, or hopeless: not at all Exam Narrative Exam Narrative: Nurses note and vital signs reviewed and patient is not hypoxic. General: The patient appears well and in no apparent distress. Patient is resting comfortably on cart. Skin: Warm, dry, no pallor noted. There is no rash noted. Head: Normocephalic, atraumatic Eye: Normal conjunctiva, no drainage Ears, Nose, Mouth, and Throat: oral mucosa is moist. Nares patent. Mouth without vesicles. Ear canals patent. Tm's without Erythema Cardiovascular: Regular Rate and Rhythm Respiratory: Patient is in no distress, no accessory muscle use, lungs are clear to auscultation, no wheezing, rales or rhonchi Back: No focal area of tenderness to palpation. No bruise or abrasion. GI: Soft and nontender Musculoskeletal: The patient has no evidence of calf tenderness, no pitting edema, symmetrical pulses noted bilaterally Neurological: A&O x4, normal speech, upper and lower extremity strength 5 out of 5 and symmetric Psychiatric: Cooperative Constitutional Vital Signs, click to edit/add: Last Vital Signs Temp 98.8 F 06/06/24 16:04 Pulse 92 H 06/06/24 16:08 Resp 18 06/06/24 16:04 BP 100/74 06/06/24 18:00 Pulse Ox 98 06/06/24 18:00 O2 Del Method Room Air 06/06/24 16:04 Course Vital Signs Vital signs: Vital Signs Temperature 98.8 F 06/06/24 16:04 Pulse Rate 88 06/06/24 16:04 Respiratory Rate 18 06/06/24 16:04 Blood Pressure 130/100 H 06/06/24 16:04 Pulse Oximetry 96 06/06/24 16:04 Oxygen Delivery Method Room Air 06/06/24 16:04 Temperature 98.8 F 06/06/24 16:04 Pulse Rate 92 H 06/06/24 16:08 Respiratory Rate 18 06/06/24 16:04 Blood Pressure 100/74 06/06/24 18:00 Pulse Oximetry 98 06/06/24 18:00 Oxygen Delivery Method Room Air 06/06/24 16:04 Medical Decision Making MDM Narrative Medical decision making narrative: Her workup is negative including x-rays of her chest and thoracic spine. She has had no recurrence and she is able to be discharged home. My clinical impression is that she has had a pseudoseizure. Treatment diagnosis and follow-up were discussed with the patient. Differential Diagnosis Differential Diagnosis: Pseudoseizure, seizure Lab Data Lab results reviewed: Yes I reviewed the patient's lab results Labs: Lab Results 06/06/24 Range/Units 16:10 WBC 9.8 (4.0-11.0) 10^3/uL RBC 5.05 (4.20-5.40) 10^6/uL Hgb 13.6 (12.0-16.0) g/dL Hct 40.8 (36.0-48.0) % MCV 80.8 L (81.0-99.0) fL MCH 26.9 (26.7-34.0) pg MCHC 33.3 (29.9-35.2) g/dL RDW 12.8 (11.0-15.0) % Plt Count 336 (150-450) 10^3/uL MPV 9.3 L (9.5-13.5) fL Neut % (Auto) 53.4 (43.0-75.0) % Lymph % (Auto) 37.3 (20.5-60.0) % [place] % (Auto) 7.2 (1.7-12.0) % Eos % (Auto) 1.3 (0.9-7.0) % Baso % (Auto) 0.5 (0.2-2.0) % Neut # (Auto) 5.2 (1.4-6.5) 10^3/uL Lymph # (Auto) 3.7 (1.2-3.8) 10^3/uL [place] # (Auto) 0.7 (0.3-0.8) 10^3/uL Eos # (Auto) 0.1 (0.0-0.7) 10^3/uL Baso # (Auto) 0.1 (0.0-0.1) 10^3/uL Abs Immat Gran (auto) 0.03 (0.00-0.03) 10^3/uL Imm/Tot Granulo (auto) 0.3 (0.0-0.5) % Sodium 131 L (136-145) mmol/L Potassium 3.8 (3.5-5.1) mmol/L Chloride 98 (98-107) mmol/L Carbon Dioxide 25.1 (21.0-32.0) mmol/L Anion Gap 11.7 BUN 11.0 (7.0-18.0) mg/dL Creatinine 0.84 (0.55-1.02) mg/dL Est GFR ( Amer) >60 (>=60) Est GFR (Non-Af Amer) >60 (>=60) BUN/Creatinine Ratio 13.1 Glucose 150 H (74-106) mg/dL Calcium 9.3 (8.5-10.1) mg/dL Serum HCG, Qual Negative (NEGATIVE) ECG Data Attestation: I personally reviewed and interpreted this ECG as follows: (EKG on my interpretation shows normal sinus rhythm with rate of 86 and no acute change) Discharge Plan Discharge Chief Complaint: Seizure Clinical Impression: Epileptic seizure, nonconvulsive, generalized Patient Disposition: Home, Self-Care Time of Disposition Decision: 18:32 Condition: Good Mode of Transportation: Private Vehicle Prescriptions / Home Meds: No Action No Known Home Medications Print Language: Indonesian Instructions: Recurrent Seizures in Adults (ED) Referrals: Physician,Non-Staff, MD [Primary Care Provider] - 1 week
[2024-06-06 16:41] LABS: Anion Gap 11.7; BUN Creatinine Ratio 13.1; Calcium 9.3 mg/dL (8.5-10.1); Carbon Dioxide 25.1 mmol/L (21.0-32.0); Chloride 98 mmol/L (98-107); Estimated GFR (African America >60 (>=60); Estimated GFR (Non-African Ame >60 (>=60); Glucose 150 mg/dL (74-106); Potassium 3.8 mmol/L (3.5-5.1); Sodium 131 mmol/L (136-145)
[2024-06-06 17:07] LABS: HCG Qualitative NEGATIVE (NEGATIVE); Internal Control Within Normal Limits
== END 2024-06-06 18:48 | disposition home or self-care (01) ==
PROVIDERS: Emergency Provider Emergency Medicine
DX: G40.409 Other generalized epilepsy and epileptic syndromes, not intractable, without status epilepticus (principal)
CPT/HCPCS: 36415; 71045; 72070; 80048; 84703; 85025; 93005; 99285

== ENCOUNTER 2024-07-10 19:11 | Emergency (ER) | payer SELFPAY ==
[2024-07-10 19:17] VITALS: BP 167/112; PULSE 87; TEMP 36.8; O2SAT 100; BMI 35.9
--- OUTSIDE RECORDS SUMMARY | 2024-07-10 19:17 | XMS_ITS | CCD ---
Author Organization [facility] Care Team Providers Care Ui Software Developer Name Role Phone REQUEST, DR NONE LISTED Primary Care Unavaila ble DELLA ., VANESSA Admitting Unavailable ADELADIE DUBON Consulting Unavailable DELLA ., VANESSA Attending [...] source) peanut allergenic extract Drug Allergy [facility] Repository (1 source) Sulfonamides (Antibiotic) Drug allergy (disorder) [facility] Repository Problems Active Problems Problem Classification [...] 01-18-2023 BASO # 0.1 103/ul Normal 0.0-0.1 [facility] Comment on above: Performed By: #### C BC ####[facility] [address] [place], [place] [address]Ar. Janet Dariel Basophils/100 WBC (Bld) 0.5 % Normal 0.2-2.0 [facility] Comment on above: Performed By: #### C BC ####[facility] [address] [place] [id number]. Janet Vieira EO # 0.2 103/ul Normal 0.0-0.7 [facility] Comment on above: Performed By: #### C BC ####[facility] [address] [place] [address]Dr. Janet Vieira Eosinophils/100 WBC (Bld) 1.6 % Normal 0.9-7.0 [facility] Comment on above: Performed By: #### C BC ####[facility] [address] [place], [place] [address]Dr. Janet Vieira Erythrocyte distribution width (RBC) [Ratio] 13.1 % Normal 11.0-15.0 [facility] Comment on above: Performed By: #### C BC ####[facility] [address] [place], [place] [address]Dr. Janet Vieira Hematocrit (Bld) [Volume fraction] 38.2 % Normal 36.0-48.0 [facility] Comment on above: Performed By: #### C BC ####[facility] [address] [place], [place] [address]Dr. Janet Vieira Hemoglobin (Bld) [Mass/Vol] 12.1 g/dL Normal 12.0-16.0 [facility] Comment on above: Performed By: #### C BC ####[facility] [address] [place], [place] [address]Dr. Janet Vieira IG # 0.04 10e3/ul Critically high 0.00-0.[address] [facility] Comment on above: Performed By: #### C BC ####[facility] Avb[address]ew[address] [place], [place] [address]Dr. Janet Vieira IG % 0.4 % Normal 0.0-0.5 [facility] Comment on above: Performed By: #### C BC ####[facility] [address]cyczov[address] [place], [place] [address]Dr. Amandanette Vieira LYMPH # 3.1 103/ul Normal 1.2-3.8 [facility] Comment on above: Performed By: #### C BC ####[facility] [address] [place] [id number]. Janet Dariel Lymphocytes/100 WBC (Bld) 31.7 % Normal 20.5-60.0 [facility] Comment on above: Performed By: #### C BC ####[facility] Xnvmtqmyuf[address] [place] [id number]. Janet Vieira MANUAL DIFF REQ NO Normal [facility] Comment on above: Performed By: #### C BC ####[facility] [address]uz[address]xxndp[address] [place] [id number]. Janet Vieira MCH (RBC) [Entitic mass] 26.0 pg Critically low 26.7-34.0 [facility] Comment on above: Performed By: #### C BC ####[facility] [address] [place], [place] [address]Dr. Janet Vieira MCHC (RBC) [Mass/Vol] 31.7 g/dL Normal 29.9-35.2 [facility] Comment on above: Performed By: #### C BC ####[facility] V[address]oxf[address] [place] [id number]. Janet Vieira MCV (RBC) [Entitic vol] 82.0 fL Normal 81.0-99.0 [facility] Comment on above: Performed By: #### C BC ####[facility] [address] [place], [place] [id number]. Janet Vieira MONO # 0.7 103/ul Normal 0.3-0.8 [facility] Comment on above: Performed By: #### C BC ####[facility] [address]bec[address] [place] [id number]. Janet Vieira Monocytes/100 WBC (Bld) 6.8 % Normal 1.7-12.0 [facility] Comment on above: Performed By: #### C BC ####[facility] I[address] [place], [place] [address]Dr. Jante Vieira NEUT # 5.7 103/ul Normal 1.4-6.5 [facility] Comment on above: Performed By: #### C BC ####[facility] [address] [place] [address]Dr. Janet Vieira Neutrophils/100 WBC (Bld) 59.0 % Normal 43.0-75.0 [facility] Comment on above: Performed By: #### C BC ####[facility] [address] [place] [address]Dr. Janet Vieira Platelet mean volume (Bld) [Entitic vol] 8.8 fL Critically low 9.5-13.5 [facility] Comment on above: Performed By: #### C BC ####[facility] [address]efax[address]hab[address] [place], [place] [address]Dr. Janet Vieira PLT 272 103/ul Normal 150-450 [facility] Comment on above: Performed By: #### C BC ####[facility] Zysnultsit[address] [place], [place] [address]Dr. Janet Vieira RBC 4.66 106/ul Normal 4.20-5.40 [facility] Comment on above: Performed By: #### C BC ####[facility] Ddntewsxcf[address] [place], [place] [address]Dr. Janet Vieira WBC 9.6 103/ul Normal 4.0-11.0 [facility] Comment on above: Performed By: #### C BC ####[facility] Fijejrujcg[address] [place], [place] [address]Dr. Janet Vieira ER URINE PROFILEon 3 Bilirubin Ql (U) Negative Normal NEGATIVE [facility] Comment on above: Performed By: #### Lorie RUR, PREGU ####[facility] Epycxoblch[address] [place], [place] [address]Dr. Janet Vieira Clarity (U) CLEAR Normal CLEAR [facility] Comment on above: Performed By: #### Lorie RUR, PREGU ####[facility] [address] [place] [address]Dr. Amandanette Vieira Color (U) LT. YELLOW Normal YELLOW [facility] Comment on above: Performed By: #### Lorie RUR, PREGU ####[facility] [address]mpy[address] [place], [place] [address]Dr. Janet Dariel ERUAHD A micrscopic examination will be performed if indicated. Normal [facility] Comment on above: Performed By: #### E RUR, PREGU ####[facility] [address]wrl[address] [place], [place] [address]Dr. Janet Vieira Glucose Ql (U) Negative Normal NEGATIVE [facility] Comment on above: Performed By: #### E RUR, PREGU ####[facility] Flpjqnvqye[address] [place], [place] [address]Dr. Janet Vieira Hemoglobin Ql (U) Negative Normal NEGATIVE [facility] Comment on above: Performed By: #### E RUR, PREGU ####[facility] Jyzseveaql[address] [place], [place] [address]Dr. Amandanette Vieira Ketones Ql (U) Negative Normal NEGATIVE [facility] Comment on above: Performed By: #### E RUR, PREGU ####[facility] Vfdexfsiqg[address] [place], [place] [address]Dr. Janet Vieira LEUKOCYTES Negative Normal NEGATIVE [facility] Comment on above: Performed By: #### E RUR, PREGU ####[facility] Lbvgj[address]rd[address] [place], [place] [address]Dr. Janet Vieira Nitrite Ql (U) Negative Normal NEGATIVE [facility] Comment on above: Performed By: #### E RUR, PREGU ####[facility] Jrykwbpjsq[address] [place], [place] [address]Dr. Janet Dariel pH (U) 6.0 [pH] Normal 5-9 [facility] Comment on above: Performed By: #### E RUR, PREGU ####[facility] [address]ise[address]foia[address] [place], [place] [address]Dr. Janet Vieira SPEC GRAVITY <=1.005 Abnormal 1.005-<=1.025 [facility] Comment on above: Performed By: #### E RUR, PREGU ####[facility] U[address]cy[address]fsv[address] [place], [place] [address]Dr. Janet Vieira UA PROTEIN Negative Normal NEGATIVE/ TRACE [facility] Comment on above: Performed By: #### E RUR, PREGU ####[facility] [address] [place] [address]Dr. Janet Vieira UR MICRO IND NOT INDICATED Normal [facility] Comment on above: Performed By: #### E RUR, PREGU ####[facility] Uv[address] [place] [address]Dr. Janet Vieira Urobilinogen Qn (U) 0.2 {Leia'U}/dL Normal 0.2 - 1. 0 [facility] Comment on above: Performed By: #### E RUR, PREGU ####[facility] [address]br[address]iztpd[address] [place], [place] [address]Dr. Janet Vieira URon 01-18-2023 , QUAL Negative Normal NEGATIVE [facility] Comment on above: Performed By: #### E RUR, PREGU ####[facility] H[address]jtem[address] [place], [place] [address]Dr. Janet Vieira PROF 14(COMP METB)on 023 Albumin [Mass/Vol] 3.3 g/dL Critically low 3.4-5.0 [facility] Comment on above: Performed By: #### C MP ####[facility] [address]qwhnisem[address] [place], [place] [address]Dr. Janet Vieira Albumin/Globulin [Mass ratio] 1.0 {ratio} Normal [facility] Comment on above: Performed By: #### C MP ####[facility] [address]izrsjtkp[address] [place], [place] [address]Dr. Janet Vieira ALP [Catalytic activity/Vol] 74 U/L Normal 46-116 [facility] Comment on above: Performed By: #### C MP ####[facility] [address]kud[address]avm[address] [place], [place] [address]Dr. Janet Vieira ALT [Catalytic activity/Vol] 42 U/L Normal 14-59 [facility] Comment on above: Performed By: #### C MP ####[facility] Ndqkbweuio[address] [place], [place] [address]Dr. Janet Vieira Anion gap [Moles/Vol] 12.2 mmol/L Normal [facility] Comment on above: Performed By: #### C MP ####[facility] [address]uci[address] [place] [address]Dr. Janet Vieira AST [Catalytic activity/Vol] 19 U/L Normal 15-37 [facility] Comment on above: Performed By: #### C MP ####[facility] V[address] [place], [place] [address]Dr. Janet Dariel Bilirubin [Mass/Vol] 0.5 mg/dL Normal 0.2-1.0 [facility] Comment on above: Performed By: #### C MP ####[facility] Xoolshrhqw[address] [place], [place] [address]Dr. Janet Dariel Calcium [Mass/Vol] 8.5 mg/dL Normal 8.5-10.1 [facility] [place] Comment on above: Performed By: #### C MP ####[facility] Rcnztinbkl[address] [place], [place] [address]Dr. Janet Dariel Chloride [Moles/Vol] 105 mmol/L Normal 98-107 [facility] Comment on above: Performed By: #### C MP ####[facility] Umunbjgoch[address] [place], [place] [address]Dr. Janet Dariel CO2 [Moles/Vol] 26.8 mmol/L Normal 21.0-32.0 [facility] Comment on above: Performed By: #### C MP ####[facility] Sp[address]uvyifsb[address] [place], [place] [address]Dr. Janet Dariel Creatinine [Mass/Vol] 0.73 mg/dL Normal 0.55-1.02 [facility] Comment on above: Performed By: #### C MP ####[facility] Ynbolhacge[address] [place], [place] [address]Dr. Janet Vieira EGFR-AF LIBERIAN >60 Normal >=60 [facility] Comment on above: Performed By: #### C MP ####[facility] Agurumbmyj[address] [place], [place] [address]Dr. Janet Vieira EGFR-NON AF LIBERIAN >60 Normal >=60 [facility] Comment on above: Performed By: #### C MP ####[facility] [address]lux[address] [place] [address]Dr. Janet Vieira Globulin (S) [Mass/Vol] 3.4 g/dL Normal [facility] Comment on above: Performed By: #### C MP ####[facility] [address]hwsfpv[address] [place] [address]Dr. Janet Vieira Glucose [Mass/Vol] 105 mg/dL Normal 74-106 [facility] [place] Comment on above: Performed By: #### C MP ####[facility] Ow[address]oxlmid[address] [place] [address]Dr. Janet Dariel Potassium [Moles/Vol] 4.0 mmol/L Normal 3.5-5.1 [facility] Comment on above: Performed By: #### C MP ####[facility] W[address]tfhwom[address] [place], [place] [address]Dr. Janet Dariel Protein [Mass/Vol] 6.7 g/dL Normal 6.4-8.2 [facility] Comment on above: Performed By: #### C MP ####[facility] [address]ial[address] [place], [place] [address]Dr. Janet Dariel Sodium [Moles/Vol] 140 mmol/L Normal 136-145 [facility] [place] Comment on above: Performed By: #### C MP ####[facility] [address]nh[address] [place] [address]Dr. Janet Dariel Urea nitrogen [Mass/Vol] 9.0 mg/dL Normal 7.0-18.0 [facility] Comment on above: Performed By: #### C MP ####[facility] Q[address]jhhu[address] [place] [address]Dr. Janet Dariel Urea nitrogen/Creatinine [Mass ratio] 12.3 mg/mg Normal [facility] Comment on above: Performed By: #### C MP ####[facility] [address]jfrw[address] [place] [address]Dr. Janet Dariel XR HIP RT 2 3V [...] [place] Date: 2023-01-18 11:19 Normal [facility] CARDIAC DARRELL 3-6on 3 CK [Catalytic activity/Vol] 71 U/L Normal 26-192 [facility] Comment on above: Performed By: #### C MREP ####[facility] [address]xiosc[address] [place] [id number]. Janet Vieira CK.MB [Mass/Vol] 0.15 ng/mL Normal <=3.60 [facility] Comment on above: Performed By: #### C MREP ####[facility] [address]ofp[address] [place] [address]Dr. Janet Vieira HSTROP 5.1 pg/mL Normal 4.0-51.3 [facility] Comment on above: Result Comment: CUT- OFF POINTS HAVE BEEN ESTABLISHED BASED ON THE FOURTH UNIVERSAL DEFINITIONS OF MYOCARDIAL INFARCTION. THE UPPER REFERENCE LIMIT (URL) OF TROPONIN, DEFINED THE 99TH PERCENTILE OF cTnI DISTRIBUTION IN A REFERENCE POPULATION, HAS BEEN CONFIRMED THE DECISION THRESHOLD FOR [place] DIAGNOSIS. Performed By: #### C MREP ####[facility] [address]rmh[address] [place] [id number]. Janet Vieira CARDIAC DARRELL ADMITon 023 CK [Catalytic activity/Vol] 72 U/L Normal 26-192 [facility] Comment on above: Performed By: #### C ROB CMADM ####[facility] [address] [place] [id number]. Janet Vieira CK.MB [Mass/Vol] ng/mL Normal <=3.60 [facility] Comment on above: Performed By: #### C ROB CMADM ####[facility] [address]jeyn[address] [place] [id number]. Janet Vieira HSTROP <4.0 Normal 4.0-51.3 [facility] Comment on above: Result Comment: CUT- OFF POINTS HAVE BEEN ESTABLISHED BASED ON THE FOURTH UNIVERSAL DEFINITIONS OF MYOCARDIAL INFARCTION. THE UPPER REFERENCE LIMIT (URL) OF TROPONIN, DEFINED THE 99TH PERCENTILE OF cTnI DISTRIBUTION IN A REFERENCE POPULATION, HAS BEEN CONFIRMED THE DECISION THRESHOLD FOR [place] DIAGNOSIS. Performed By: #### C MP, CMADM ####[facility] [address]owlk[address] [place] [address]Dr. Janet Vieira SUMEET 37 ng/mL Normal 9-82 [facility] Comment on above: Performed By: #### C MP, CMADM ####[facility] T[address] [place] [id number]. Janet Vieira CBC AUTO DIFFon 09-30-2022 BASO # 0.0 103/ul Normal 0.0-0.1 [facility] Comment on above: Performed By: #### C BC #### [facility] [address] [place] [address] [address] Janet Vieira Basophils/100 WBC (Bld) 0.5 % Normal 0.2-2.0 [facility] Comment on above: Performed By: #### C BC #### [facility] [address] [place] [address] [address] Janet Vieira EO # 0.1 103/ul Normal 0.0-0.7 [facility] Comment on above: Performed By: #### C BC #### [facility] [address] [place] [address] [address] Janet Vieira Eosinophils/100 WBC (Bld) 1.5 % Normal 0.9-7.0 [facility] Comment on above: Performed By: #### C BC #### [facility] [address] [place] [address] [address] Janet Vieira Erythrocyte distribution width (RBC) [Ratio] 13.0 % Normal 11.0-15.0 [facility] Comment on above: Performed By: #### C BC #### [facility] [address] [place] [address] [address] Janet Vieira Hematocrit (Bld) [Volume fraction] 37.1 % Normal 36.0-48.0 [facility] Comment on above: Performed By: #### C BC #### [facility] [address] [place] [address] [address] Janet Vieira Hemoglobin (Bld) [Mass/Vol] 12.4 g/dL Normal 12.0-16.0 [facility] Comment on above: Performed By: #### C BC #### [facility] [address] [place] [address] [address] Janet Vieira IG # 0.02 10e3/ul Normal 0.00-0.03 [facility] Comment on above: Performed By: #### C BC #### [facility] [address] [place] [address] Dr. Janet Vieira IG % 0.2 % Normal 0.0-0.5 [facility] Comment on above: Performed By: #### C BC #### [facility] [address] [place] [address] Dr. Janet Vieira LYMPH # 3.2 103/ul Normal 1.2-3.8 [facility] Comment on above: Performed By: #### C BC #### [facility] [address] [place] [address] Dr. Janet Vieira Lymphocytes/100 WBC (Bld) 36.6 % Normal 20.5-60.0 [facility] Comment on above: Performed By: #### C BC #### [facility] [address] [place] [address] Dr. Janet Vieira MANUAL DIFF REQ NO Normal [facility] Comment on above: Performed By: #### C BC #### [facility] [address] [place] [address] Dr. Janet Vieira MCH (RBC) [Entitic mass] 25.9 pg Critically low 26.7-34.0 [facility] Comment on above: Performed By: #### C BC #### [facility] [address] [place] [address] Dr. Janet Vieira MCHC (RBC) [Mass/Vol] 33.4 g/dL Normal 29.9-35.2 [facility] Comment on above: Performed By: #### C BC #### [facility] [address] [place] [address] [address] Janet Vieira MCV (RBC) [Entitic vol] 77.6 fL Critically low 81.0-99.0 [facility] Comment on above: Performed By: #### C BC #### [facility] [address] [place] [address] [address] Janet Vieira MONO # 0.6 103/ul Normal 0.3-0.8 [facility] Comment on above: Performed By: #### C BC #### [facility] [address] [place] [address] [address] Janet Vieira Monocytes/100 WBC (Bld) 6.7 % Normal 1.7-12.0 [facility] Comment on above: Performed By: #### C BC #### [facility] [address] [place] [address] [address] Janet Vieira NEUT # 4.8 103/ul Normal 1.4-6.5 [facility] Comment on above: Performed By: #### C BC #### [facility] [address] [place] [address] [address] Janet Vieira Neutrophils/100 WBC (Bld) 54.5 % Normal 43.0-75.0 [facility] Comment on above: Performed By: #### C BC #### [facility] [address] [place] [address] [address] Janet Vieira Platelet mean volume (Bld) [Entitic vol] 8.7 fL Critically low 9.5-13.5 [facility] Comment on above: Performed By: #### C BC #### [facility] [address] [place] [address] [address] Janet Vieira PLT 303 103/ul Normal 150-450 [facility] Comment on above: Performed By: #### C BC #### [facility] [address] [place] [address] [address] Janet Vieira RBC 4.78 106/ul Normal 4.20-5.40 [facility] Comment on above: Performed By: #### C BC #### [facility] [address] [place], [place] [address] Dr. Janet Vieira WBC 8.8 103/ul Normal 4.0-11.0 [facility] Comment on above: Performed By: #### C #### [facility] [address] [place], [place] [address] HEAD WO CONon [...] EMI KENNEDY Date: 2022-09-30 18:32 Normal [facility] CTA CHEST WO W CONon 023 [...] EMI KENNEDY Date: 2022-09-30 19:28 Normal [facility] D-DIMERon 09-30-2022 D-DIMER 0.68 mg/L FEU Critically high <=0.59 [facility] Comment on above: Performed By: #### D DIM, PT, PTT #### [facility] [address] [place] [address] Dr. Janet Vieira D-DIMER COMMENTS SEE BELOW Normal [facility] Comment on above: Result Comment: [...] By: #### D DIM, PT, PTT #### [facility] [address] [place] [address] [address] Janet Vieira ER URINE PROFILEon 3 Bilirubin Ql (U) Negative Normal NEGATIVE [facility] Comment on above: Performed By: #### E JESSY DALEY PREGU #### [facility] [address] [place] [address] [address] Janet Vieira Clarity (U) CLEAR Normal CLEAR [facility] Comment on above: Performed By: #### E RUR, UMICRO, PREGU #### [facility] [address] [place] [address] [address] Janet Vieira Color (U) LT. YELLOW Normal YELLOW [facility] Comment on above: Performed By: #### JESSY DANIEL, PREGU #### [facility] [address] [place] [address] [address] Janet PENA A micrscopic examination will be performed if indicated. Normal [facility] Comment on above: Performed By: #### JESSY DANIEL, PREGU #### [facility] [address] [place] [address] [address] Janet Vieira Glucose Ql (U) Negative Normal NEGATIVE [facility] Comment on above: Performed By: #### JESSY DANIEL, PREGU #### [facility] [address] [place] [address] [address] Janet Vieira Hemoglobin Ql (U) MODERATE Abnormal NEGATIVE [facility] Comment on above: Performed By: #### JESSY DANIEL, PREGU #### [facility] [address] [place] [address] [address] Janet Vieira Ketones Ql (U) Negative Normal NEGATIVE [facility] Comment on above: Performed By: #### JESSY DANIEL, PREGU #### [facility] [address] [place] [address] [address] Janet Vieira LEUKOCYTES Negative Normal NEGATIVE [facility] Comment on above: Performed By: #### JESSY DANIEL, PREGU #### [facility] [address] [place] [address] [address] Janet Vieira Nitrite Ql (U) Negative Normal NEGATIVE [facility] Comment on above: Performed By: #### JESSY DANIEL, PREGU #### [facility] [address] [place] [address] [address] Janet Vieira pH (U) 5.5 [pH] Normal 5-9 [facility] Comment on above: Performed By: #### JESSY DANIEL, PREGU #### [facility] [address] [place] [address] [address] Janet Vieira SPEC GRAVITY <=1.005 Abnormal 1.005-<=1.025 [facility] Comment on above: Performed By: #### JESSY DANIEL PREGU #### [facility] [address] [place] [address] [address] Janet Vieira UA PROTEIN Negative Normal NEGATIVE/ TRACE [facility] Comment on above: Performed By: #### JESSY DANIEL, PREGU #### [facility] [address] [place] [address] [address] Janet Vieira UR MICRO IND INDICATED Normal [facility] Comment on above: Performed By: #### JESSY DANIEL, PREGU #### [facility] [address] [place] [address] [address] Janet Vieira Urobilinogen Qn (U) 0.2 {Leia'U}/dL Normal 0.2 - 1. 0 [facility] Comment on above: Performed By: #### JESSY DANIEL, PREGU #### [facility] [address] [place] [address] [address] Janet Vieira URon 09-30-2022 , QUAL Negative Normal NEGATIVE [facility] Comment on above: Performed By: #### JESSY DANIEL, PREGU #### [facility] [address] [place] [address] [address] Janet Vieira PROF 14(COMP METB)on 023 Albumin [Mass/Vol] 3.4 g/dL Normal 3.4-5.0 [facility] [place] Comment on above: Performed By: #### C ROB CMADM ####[facility] [address] [place] [address]Dr. Janet Vieira Albumin/Globulin [Mass ratio] 1.0 {ratio} Normal [facility] Comment on above: Performed By: #### C ROB, CMADM ####[facility] [address] [place] [address]Dr. Janet Vieira ALP [Catalytic activity/Vol] 80 U/L Normal 46-116 [facility] Comment on above: Performed By: #### C ROB, CMADM ####[facility] [address] [place] [id number]. Janet Vieira ALT [Catalytic activity/Vol] 44 U/L Normal 14-59 [facility] Comment on above: Performed By: #### C ROB, CMADM ####[facility] Glgf[address]os[address] [place] [id number]. Janet Vieira Anion gap [Moles/Vol] 11.4 mmol/L Normal [facility] Comment on above: Performed By: #### C ROB, CMADM ####[facility] [address] [place] [address]Dr. Janet Dariel AST [Catalytic activity/Vol] 22 U/L Normal 15-37 [facility] Comment on above: Performed By: #### C ROB, CMADM ####[facility] [address] [place], [place] [address]Dr. Janet Vieira Bilirubin [Mass/Vol] 0.3 mg/dL Normal 0.2-1.0 [facility] Comment on above: Performed By: #### C ROB, CMADM ####[facility] [address] [place], [place] [address]Dr. Janet Dariel Calcium [Mass/Vol] 8.7 mg/dL Normal 8.5-10.1 [facility] Comment on above: Performed By: #### C ROB, CMADM ####[facility] [address] [place], [place] [address]Dr. Janet Vieira Chloride [Moles/Vol] 103 mmol/L Normal 98-107 [facility] Comment on above: Performed By: #### C ROB, CMADM ####[facility] [address] [place], [place] [address]Dr. Janet Vieira CO2 [Moles/Vol] 26.6 mmol/L Normal 21.0-32.0 [facility] Comment on above: Performed By: #### C ROB, CMADM ####[facility] [address] [place], [place] [address]Dr. Yinette Vieira Creatinine [Mass/Vol] 0.58 mg/dL Normal 0.55-1.02 [facility] Comment on above: Performed By: #### C MP, CMADM ####[facility] [address] [place] [id number]. Janet Vieira EGFR-AF LIBERIAN >60 Normal >=60 [facility] Comment on above: Performed By: #### C MP, CMADM ####[facility] [address] [place] [id number]. Janet Vieira EGFR-NON AF LIBERIAN >60 Normal >=60 [facility] Comment on above: Performed By: #### C ROB, CMADM ####[facility] [address] [place] [address]Dr. Janet Vieira Globulin (S) [Mass/Vol] 3.4 g/dL Normal [facility] Comment on above: Performed By: #### C ROB, CMADM ####[facility] [address] [place] [address]Dr. Amandanette Dariel Glucose [Mass/Vol] 101 mg/dL Normal 74-106 [facility] Comment on above: Performed By: #### C ROB, CMADM ####[facility] [address] [place] [address]Dr. Amandanette Vieira Potassium [Moles/Vol] 4.0 mmol/L Normal 3.5-5.1 [facility] Comment on above: Performed By: #### C MP, CMADM ####[facility] [address] [place] [address]Dr. Janet Dariel Protein [Mass/Vol] 6.8 g/dL Normal 6.4-8.2 [facility] Comment on above: Performed By: #### C MP, CMADM ####[facility] [address] [place] [address]Dr. Amandanette Vieira Sodium [Moles/Vol] 137 mmol/L Normal 136-145 [facility] Comment on above: Performed By: #### C MP, CMADM ####[facility] [address] [place] [address]Dr. Janet Vieira Urea nitrogen [Mass/Vol] 8.0 mg/dL Normal 7.0-18.0 [facility] Comment on above: Performed By: #### C ROB, JESSE ####[facility] [address] [place] [id number]. Janet Vieira Urea nitrogen/Creatinine [Mass ratio] 13.8 mg/mg Normal [facility] Comment on above: Performed By: #### C ROB, JESSE ####[facility] [address] [place] [id number]. Janet Vieira PROTIMEon 09-30-2022 INR Coag (PPP) [Relative time] 0.96 {INR} Normal [facility] Comment on above: Performed By: #### D DIM, PT, PTT #### [facility] [address] [place] [address] Dr. Janet Vieira INR GUIDELINES SEE BELOW Normal [facility] Comment on above: Result Comment: SANKET RED INR: 2.0 - 3.0 CONDITIONS NOT LISTED BELOW 2.5 - 3.5 FOR PROSTHETIC HEART VALVE REPLACEMENT 2.5 - 3.5 RECURRENT THROMBOSIS Performed By: #### D DIM, PT, PTT #### [facility] [address] [place] [address] Dr. Janet Vieira PT Coag (PPP) [Time] 10.2 s Normal 9.0-11.6 [facility] Comment on above: Performed By: #### D DIM, PT, PTT #### [facility] [address] [place] [address] Dr. Janet Vieira PTTon 09-30-2022 aPTT Coag (Bld) [Time] 25.2 s Normal 22.3-36.2 [facility] Comment on above: Performed By: #### D DIM, PT, PTT #### [facility] [address] [place] [address] Dr. Janet Vieira URINE MICROSCOPIC ONLYon BACTERIA NONE SEEN Normal NONE SEEN [facility] Comment on above: Performed By: #### E RURJESSY, PREGU #### [facility] [address] [place] [address] [address] Janet Vieira Bacteria identified Cx Nom (U) NOT INDICATED Normal [facility] Comment on above: Performed By: #### JESSY DANIEL, PREGU #### [facility] [address] [place] [address] Dr. Janet Vieira CAST NONE SEEN Normal NONE SEEN [facility] Comment on above: Performed By: #### JESSY DANIEL, PREGU #### [facility] [address] [place] [address] Dr. Janet Vieira Crystals LM Nom (Urine sed) NONE SEEN Normal NONE SEEN [facility] Comment on above: Performed By: #### JESSY DANIEL, PREGU #### [facility] [address] [place] [address] Dr. Janet Vieira Epithelial cells LM Ql (Urine sed) RARE Normal NONE SEEN /RARE [facility] Comment on above: Performed By: #### JESSY DANIEL, PREGU #### [facility] [address] [place] [address] Dr. Janet Vieira MUCOUS NONE SEEN Normal NONE SEEN [facility] Comment on above: Performed By: #### JESSY DANIEL, PREGU #### [facility] [address] [place] [address] Dr. Janet Vieira RBC 0-2 Normal 0-2 [facility] Comment on above: Performed By: #### JESSY DANIEL, PREGU #### [facility] [address] [place] [address] Dr. Janet Vieira WBC NONE SEEN Normal NONE SEEN [facility] Comment on above: Performed By: #### JESSY DANIEL, PREGU #### [facility] [address] [place] [address] Dr. Janet Vieira XR CHEST 1 Von [...] HARMEET PRAJAPATI Date: 2022-09-30 18:27 Normal [facility] Covid-19 PCR (CVDTB)on 03-08 SARS-CoV-2 (COVID-19) RNA ZAC+probe Ql (Unsp spec) Not detected Normal NOT DETECTED [facility] Comment on above: Result Comment: This test is not yet approved or cleared by the [place] FDA. When there are no FDA-approved or cleared tests available, and other criteria are met, FDA can make tests available under an emergency access mechanism called an Emergency Use Authorization (EUA). The EUA for this test is supported by the [place] of Health and Human Service's (HHS's) declaration [...] with SARS-CoV-2. Performed By: #### C VDTB ####[facility] [address] [place] [phone]. Janet Vieira GROUP A STREP CULTUREon 03-08 S. pyogenes Ag Ql (Unsp spec) Culture Observations: NEGATIVE FOR GROUP A STREPTOCOCCUS. Normal [facility] Comment on above: Performed By: #### G RASTCX, SSCRN ####[facility] [address] [place] [phone] Vieira STREPT SCREENon 03-19-2022 STREP SCREEN A Negative Normal NEGATIVE [facility] Comment on above: Performed By: #### G RASTCX, SSCRN ####[facility] [address] [place] [id number]. Janet Vieira XR NECK SOFT TISSUEon 2021 [...] NEHAL BOYKIN Date: 2022-03-19 21:42 Normal [facility] Coding Summaryon 03-13-2022 Coding Summary HTMLBase 64 BrswbzgkUOt8iCs+PGhlY WQ+DJ9OYKKfO54biFIkzU 8KO3cTTQ7CNQBBOYDEZD7 MET5tlPC6BSavN4ZhneUy QgqevRGrLA50CQb3LWY1h RcmSQbbbV5jlJJiI8p4Kh XdQS41lJ70JXrtAPCmWvT 3LjZpbjsgbWFy U2mqYjEwxASsTvb+PHRhY mxlIHdpZHRoPScxMDAlJy JxmKxwFF9wAz2iGIIzRIK vbGxhcHNlOiBj a9bmGVPqSXulDB8qmJefI 3XviLA3UDNqu6a8Xe61pW I+FCCrBIS3bCvgKZkgg17 5AxDzf5tiMWO3 dAVpSCirWWM9S01nd6B4L SRwFFMfNLU6xZM8vD8nuX eexufkW5HbnUIkVpL9UNL 3cGHqeC9cnCwe itxavQ2fYic+O58QYI9NM SYWAK7MMmv2K0PqQhlegD I+YC35XPNvUG78kAKqnXO qt3ytyUp8LuCc HJYbZVR8pGgiQVwkf2PeY VDhT45ppSJwk0Z3JFMvhC aekVWuUiZoqZP6zG5uPEf xobfnt8ojmljd Ctwmy3lmrw09kW93V76bG FpgEGDeYAB7KYCzYRWkaK uwdr0awV6uVr3+UNokq4d sm5lpkQh6AgYq IDGlvmCkuGvnYWS8q6VkH m44M3IurQlit3IeKzh1lc 00gUPhp5B4jZA3ITqiGQK pvU7oYUjcOkY5 VNRoBzQqgP58kUYhJZgyR g9swBzyfLozYY4mZWNldn exKUGlkM8cSIQmzTWarFw hHJ4wJZBgdgeh p456XzMpRRF2KBMvdHIgN 7CmoA3jUbDbEZEmQTEkI9 JlyBCtQLwjD006IUteWbC 4ZLPswxLkM0Um MNAccOjyBmJ3y6Y9Wk5Wy 5ErexslLUP1RQrrBPV3Et Q8ZjXvKeD6S3DoLxd7MXY dmDssHU6fN0Ig ZLDgrquhnpyneKM5HDGnU UFlnJ55gLYoHWgxEw9jv5 D6r552CGAbTDKhjZ48Ff9 udDogMTBwdCBU dA7bdvjyu9tnbcbhIuTxW AOfJLi5UDi2JXAilNkmCk IzYAF9PyK0YLE3zZTtwM0 nqPgkuasuyR3e Oyc+T91chJ1mHPK8TRT4t uoaDYJipgWcTR60NH68E3 RyPjwvdGFibGU+PGRpdiB cqJntAG3sBoCv k6iyp4UgUOstW7MrXMQwT XhuCjy0PQNpUPZ9vDV0hI 1kDQXcTKczx3F2gKC7M7D epjXehc6lk4me KIKiWUnxT25yfJWxf8W1Q EUrvYT7UBHrvEexRiMwyT 93Oyc+NFSyrKeqr5JiZum pe2kla1xnxIl3 PgSePBXlizHbjKbzUJL2m 5FxWh06D68rUZeuPLJfTW JbYQJvTFQnvXzyms3rzH9 wIi8+PGNvbCB3 kVC0aT7kMNEmJpW6RBtuK 074IsZrhMGpBnsxf5zkh6 tarPu2MwVdTFZpstBjtEm kZRS8h7ImRr46 X54bKXjpBVThZBYeDAAfY CXxrUofgx8qvQ6vJf3+PC 3bs6mfau59iE67sLD+PHR lEUL0cYlsAQwu ZAXtsO9tEUtsKlU4MMUnF xPdtA72tIIlZUexWu1cqN pdtGbkDM1dWEChrbjgj76 6TaSzd5tfSNSi sBJuLPomCUA8T98zn2H4D VEbKADgYQC8uHR2jX2enP lnbjogbGVmdDsgdmVydGl tCVywQBldO777 IHRvcDsnPlBhdGllbnQgT jYxWMr6U2EnBhf6UTDznQ tjIJ7xmKIoFGzjSk1bpMd icFtiVQ1lBSWy onzzm425JzXjb7odTZGfn LNwLYykWHS6B98yk6B3MT LrBDFaZBN4mTG2mV6jtXw nbjogbGVmdDsg bcXtcTbmWNxdQSghK937C HRvcDsnPkJpcnRoIERhdG Y2KU38SX22mXZxb8N4hIG 3L7CgIPTebrmy jlmbcEW1IMViVVIsxG44B r1xuUicRh0lVXEkVRN3GX IgeRQcT5CeiL7dQmLpUMF iJNRbF1EjbWYw ILryX187SOoaSlC8RGGif wToX6ZxWCXonTzrGxC6s0 J0Ng4FT7L4QB29DZ73nJP ay7V4fBA7W9Hh DDUlkznmppsvfWZ4QZGnZ THagS30Dr7puTnxEa7pBZ CrBLX9AVAgmVVwW2XrvD9 yOiAjMDAwMDAw O6ZjtVUhQNuvY952ZMgkN xQ8XITzseLdQ4ZfVDIvjI pbEqJ4z4M4Xl5IALz5XH6 0EX85tSTqj0P3 gHE9L1FsURIsqiscgvuss AX6LIUsNQWbjJ74Ig7gcV ajLq2pAGFkJRO3EAVekBR jQ1SzkK0uTnMo ZEWeQYJtA8QguYBmHHjmW 263XGskSjN2OKAjhrBpJ3 ZdYTNmeFtcVvY0j0G5Jl5 XRVKjRJ26XDP0 hKP9YX50NE07S9MhRhisa GFibGU+PHRhYmxlIHdpZH RoPScxMDAlJyBzdHlsZT0 kFx7eUTUbVLRh lWcmbUBrTySsw7myZRKnU RqjMN0khXisB7JbgFO4ML Wrd4b5Ow56O52qX0PcyLC +WSFcnEN5tOL6 uD1pAjGuMtO4ISvfV742Y lOdtHGvQcltb0yvt1efkW e4JvQ5IDNpzjWhnGbjYDZ 3y1KmNm63X26g IHdpZHRoPSIxNSUiIHZhb Klgti5thM6rNy9+PGNvbC B4eVJ5jT5jMiXxXoN2PUq gH004QmTcgQWu Cwqms2dsv2bdcVp6OyZfO KNlgjYoxNrdPTA7z0QiEv 84S1MunOoaf8ZhVee1ww1 8fQNqf8V4nLJ6 X8JdVMWxcitvaJFxaDzqD V0iFTKktyvxAABisL6cLA RtE1c8RhEaQwO5JTruU3S lhsR5WMFoxVDp GZmlNOU7J12da1D1HUKvC UDwLJA9lOS2vB4alJqnka ogbGVmdDsgdmVydGljYWw xRThaE306NSDz nWvqMKPbrI8tYTDhyPVvr XxqDA4mPODyxlzrIwFCOr 5FUywgQlJJVFROQVkgTkl WH8rRIE18MH93 fMMqj8L1lZW9Y0FvCNYbi axkjhennGE6ALDeXUYznA 49vAFhWVwmKb6sf5G3z32 0NHIcWOJslA09 Sq7ihWehIBNmlRSGpF1gi nrdy9xbulftDkZrDWFxVG v4PRm8APDkpJyfIoCkQCA 1MvU0KMJ3vTYu eZ2evXwrocojjC7sSpi+M DAwHXrsEVy2UgvjbIQ+PH HpQQA0cWecUJwgVKDjaL2 zAAHfI2z1XgBk TfX8OBwhP0TsCFUpixowG q31fK1jWrJxVdU5CWxrC4 HueyZ6BGFxqSWfCMeoABO 5F88ys4B5RMLn LOEaLWY2aSM8qC4frYxfw jogbGVmdDsgdmVydGljYW rkFGmtH257XATvbOycRpP zTRovKQJqHJ86 BO39zEMnp2X8rLG1P8WyN ZThpzfnmytzeXW7AGUeCQ RrlF92nCTwRCdqNb4zg7L 4k754SSSoOONl zY74Lr8fgLvdSDTvjKLPv Q1avsauk3wcwkkjXzRaEI ClEZs8DVb6ZPXmnHlvLuJ lFIJ3WbK7GAE4 xTOcjD5tzTeddliecQ5wW yc+BzOEDBcIEU75WK17kJ Fja4L8oJD8C7PuCWCumyn sfctyjCL7REYj TKIpuZ08iGYyAWyiQq7bv 9H2o105QBNmXNCieU44An 8xoUzbOAScrGAXuC1lsur kg8uojztnZsAv ILRtLHs8YKm3OKFjzDylN hLdCBQ6YfH8BLK7gHMldN 0ahDjvfbwelC5pBfw+T1A 0M8ZmQkodwQC+ OZ77UPXnGS37zJCzdECfd 0ajtLs0EsJtUMOgGEP9nP tsCVvco3WzSIBxL97qgVF hd2D5TSKkdPse xAPkDyNptBD6eU7jMMkvx untp7zismjbXyafm1risj 27rT56W89sHHiwACVaMWX zMCUiIHZhbGln gq5xiX3bMx6+YSCuoXA9n NC0fF8bZjQpQgU1DYfbF7 92QfZniEVeVcdes7wjk7x akZl3MfDnLGLa raPqwVgmRXD1j1GnGa48K 29sIHdpZHRoPSIyMCUiIH JcuLluoz1obH3oYw0+PC9 bu5xztu19hV35 dHI+MBCdQVL7fZxoDHlfI KRemG5kURuiVaE1CNDgUy PgaJ15rLDzEZygHq0xrLv zkJrmUU1jLCFj gcjit506UzIcz4scFIKks XZwGSvxVBP1Z48ps6R9ZH PbRYUcPVT2dAO3mI7slXu nbjogbGVmdDsg ljXirBedKDwvVCclG378R IPeeKzlAqAdxQZbC6holh WYRI7nJevejWN+PHRkIHN 0eWxlPSdwYWRk lT9aIQQqI0v9UwPrDdL6L ShdV2RrifM8FNKvbHBaRN TqzLXTmZ5rkhahq6uldub gIzAwMDAwMDt0 SCa1NNAaiPraWnPbDLP8O uK2BNQ1qMBwhK9jnLvcpp fkcF1yJvd+RklOOjwvdGQ +CHSmWXR2xOnl WRpzZGBraB5hGBOxG5u3W rTpPjE5WSpoS7JnhmA6PE AbmVRzENJziVULsZ0qkir sa7vazkaaJxOi BFItRDc8EGm0UTDiaLjeZ kQcYVN7DxC9JEP0bGQipQ 1mrMjvfbzhuJ6xBcx+TVJ OOjwvdGQ+PHRk QJH9xAciYOgcGYTbaW8fX PFsI6v6PkQzFdY1RLigG0 WqgoK2INJvfHKzAZAdjRA BbX9adbvxo1va mqpsXiGjHHCiFYb6WSn3I TTdoMgsWaMeJOW5QaF4HY X0oDUdsX8hcEmbcyfgoO7 wOyc+QPM2JDI8 VN06HP76P4IfWcsbdLNwj +PHRhYmxlIHdpZHRoPS igJVQeTqSmdRvqJT2oKr1 yZGVyLWNvbGxh cHN (more content not included)... [facility] Coding Summary HTMLBase 64 YjoeppljEGq4aGk+PGhlY WQ+FJ3RRKCtB50rxNNtwK 7LM4lHNK1YNBLIRVTRMC8 BXU9fhMD6RCtmT1OcehMe ZzzlsQOaFH71PTa1WWX7z TlsZPckeD9zeROmO8l1Ia IuGU58oH85IMhkVLSwBjL 3LjZpbjsgbWFy Q4lbWiCygZEtHfw+PHRhY mxlIHdpZHRoPScxMDAlJy OglAqwLB3fUg0zSJMpIEJ vbGxhcHNlOiBj e4xrIOMbIIuzSS1wyKweZ 8SgnFC5MDGys7a8Ad34eB I+NSPxRCI5vOqwOTdah49 6HxHhs7vuAJF3 oCBcRCywDAL5T32qr8M9Q NYpZPLqCMY5xAG3nS8taX quhijtA9OveDPyOoH3EKK 5hJNivK4biPlm vfkvvN1uLnq+E15CVX7RM SHWTC3UBqa2I9DoTneoyT I+OY09WHUjZE61dVKocPH gy6bmlOz7BlFu HYZtNQH7vJouBWtkw1JvN LNbS15vwKJii9Q6ZUIqvH iypHCkLfYfpRU9wZ3mPCz uhlvkc4vpiknf Livwa0hzsi83vS66L48wP DohLQHsNVT1DBNmLEUodU vviz4spR8nTq9+TRfcd3v jd6yglTo7CzLv BLSclcDrjKnfBYA0r1RwT g96C6CbfPsfg7MfNdp3ua 31iUWrt8U5lQZ6INicYOV wpK0rYBnpIpW4 BYUrAhFltL31uIBdNDkfX g9iqPntaLqiZJ0cVCBitf xiBTMivL7qYOXxxBPrjMk sLF9oHBYxpdww s534CgRtQXR0XTCcwSAgN 7BzeJ7eScVxOFQuKUXgE1 FfuRGjNZrzK446GJkiJcD 9HOArydGvH3Ul EBWmhGxsKsK2l4T7Ej7Jr 7HcyachUKU2WSghXIR2Jo H7GtEfQgZ2O1YvDzv0CBF axHsoZX6aK7Nk YSIupedtysghtYZ6DBGxL DHecM37xPOgCPbjQn1yk9 C3u298SYEpMGVrnE20Gd5 udDogMTBwdCBU nI8owivxk9zmximbEcTjD UPgTHk8YYz1ATRluKzdKa FnYZH6KlA3JXU9nOMrtT6 rfUolgdykxC3v Oyc+N24mjM7rWMX0ZUD2w ruaEDZifiKyOC27PA69Y0 RyPjwvdGFibGU+PGRpdiB hxIcqZJ0tHzJi u4zru6GuBZajX6KgKHEqX RwiStc2MNUsYZH3bVP1lI 1tCNHmOXjxr8B0xJN5J2W bbuOpzt7qc7tp UUYgIMarL31poQWue0W5L JLluBC4GMXlnShzBxLahF 93Oyc+HPIbuBohs7YdEys ws7zdr1xtwZa5 LxEdSXGloqWoqFthLZC8j 4RdSy07K85tFOoqAVXzGM YaZALjZSWuhFwzqt6gzS9 wIi8+PGNvbCB3 cSD8mS3lRCExCiM1FNydI 337PhCahNWoAfhfa7cbj2 vfaNt7EeCwZAZqtsNiaXr sFVS6q5NbZt71 X99cJCbyBMWwQLXsHHJeG FTbfTkqoi0btS1eCb9+PC 3an6wubt53dH02wPA+PHR wVGE1zBoxXXkf WZLnjA1sVLhsRpF4AAKnJ sWuyB86rVKbFErbKw7zzZ pdkDtlFW1mUXZpiqluw44 8DfUjw6scWXWn uOJxBNhoALF1H29nu5E8G IYaHVChOBW6xKK0mQ7krQ lnbjogbGVmdDsgdmVydGl pWKakEJgyX087 IHRvcDsnPlBhdGllbnQgT bUqPXf5W7UlTuu7QXPrkQ tvBC2ghIVlSEssTe2rqFe bbGfsPL3tNXVl axxwi088QxHjn5pmFEXtt QIoMNbwBUH3W08ug4G0NK PsQCYeHKF1uAS3yO3dnNj nbjogbGVmdDsg xeXseKraIKybWYmbY056U HRvcDsnPkJpcnRoIERhdG T9DS05DG51vNCzt3S2tUG 3H7VmSNThtmsc miocrMO6EPWnSFNlkH82Q d4xoEdgDo6uTGGhCBH3FJ OlnYNoK1HmtX5lYzUjOHD uTDDtH6GizBRi MWmlB565JBrdDmA4CJNzg mZhJ8UzTFPrcQbcFpG9v5 J4Ji2ZA6G9DU00QW84pDU el4I7nHL7P9Ip DRHseweqpillgPU3LMXpY LNntO31Xm3ogUgbLx3vLK UvMLT8HIAiaVXuA6HrwQ7 yOiAjMDAwMDAw T5UlzABkWAshH402HBxsX pM4UZXrbzKuG5YeZAJxuI ydAgL3y2L9Oz4DCPf1UB9 4YN09yXSba5D6 eMF9V0TxTMRnhkviylmar ED8NIIoULYedL20Va2mxE hdLl2rEUOnGMB9MYCnuJH kJ8AzjG9tSpCg NXEiZLTgT7XswFQiMCtoJ 708VCbfKgN9HAPvbbMtL8 GqYOZxrIltUeY2j6E7Hb5 PIEKwTN07CDW0 bKD2FS35SZ23B4WgAgapt GFibGU+PHRhYmxlIHdpZH RoPScxMDAlJyBzdHlsZT0 xSe8qANCbTOOc jWwelXRqGhAhr4juGYAhU ZtrWZ9hkMkiR9GavZG4BV Lef6r2Vy85P58iM8IntTY +XSHjgKD5bTQ4 sQ5yNpOgYcC4XUesF347S rFubXSmBcann3hib8yahK k0KbO3ZSXfhyNfiWdzLAV 9y8OmIp92W31e IHdpZHRoPSIxNSUiIHZhb Twliz8fqC0xOj9+PGNvbC X5jDC7xI7qNuBwQcD5YLi hU149TfLygMAk Pavue8exf1jbzPu3QnCgJ PBszpYbsUqeSXP5q8DaBt 66U2CyjPwav0JcPzb9tu7 5mCVdm2F4fBR2 G3KhRPVezwtddRRabQumF P0qGPZtgebyGDHohB1pSK SeA8u5DdCtMrV3QRuhL1P bhuT1DINgwZRz VHccSAA8V62wr7H2MCCuW WYkLZB5jUD3zK9tvTjimk ogbGVmdDsgdmVydGljYWw oRQgmA871SFYi xEuoEOQkiN4fBFVfhGYdl ZksKV6yPHEjuzhsGkCHMu 5FUywgQlJJVFROQVkgTkl QP2mSCI37KJ99 pPIrm6C6oUM7D5NmRBAbo btwluxxxND9SUEnVVPuzO 50rSIgIUwoYt8xf8Y5e10 7UJGnWMXmpL19 Hg2wdSqoAHPtbLAKcL0gr pgzr3huaascBdVpQDAqOX h7NJr2WGLefRunVwZzQEE 8QtU0AHS6oVYw iZ1jvKhoksxphZ8wJlg+M WIhKSycIQj6HbzskGD+PH ViBSY7vAahGUjwARLziQ4 pZIAlI4h4MmUd GuA9CRrkR7UfRUAbhctlH r47mV1lEdCcBqI0MXeoB9 OrpqP0EFCrtEBvKCllHHQ 6S29tj0K0SCHb ADPmTEE3dTC7fP2vgDgeq jogbGVmdDsgdmVydGljYW hvSKmxG347QSTxuZeaInV zXQjdPZWkGF85 PI59tDGwq4S0uFP7O8PaY RHixspqpwsyeSB2HXQxVX XasN00nGRaWCciUy8jc3M 7e482RDHqRFVt nU43Vd2clLvwNDVaaGXVn E6abxvuj4wxlgvqXiQjXX JjRIc7DFl5MSCxoEkdMwJ xXKH9MpF7ALE7 vTSggI2glMcydondvB5dX yc+KqKUKMgERI32WR22pI Rwf2X3xWR8F0VcEIKabez vjivluRA1BPUu QTXjrL96fPJpJIheGf3bp 0E6m723PKVkQPLlgY90Az 3thNrqECLheHQWlY6glfn hx3zbrlovWhId JYFfWRz7RRu7USDrvGrdJ qSlNYC8PdG3YNR6jNRbfI 3twZuchiluxO2tRim+RW1 hswpajjF8BM21 IL05I5NfJbwetEUtjOL+P HRhYmxlIHdpZHRoPScxMD XbYpNyvUrgZC4eSr0dUNK yLWNvbGxhcHNl RzHzw2qwQUErLRpmCN0cz DebZ9IifUK3CQLzz5j0Lf 14S59gP5HpqOH+PGNvbCB 7oUS9rT2vQhLv AvR7VFngH074MnIzlNRiA uenx7zmx7etvIg7PkBvPI OmerZblMvsQFR8l9BjTc4 0N86uTXacBVCo YZLmANOxYWXejGriow8ec G9wIi8+FQYeiBM1cXV5hB 2fJfIlWyF7QPivI532QoS coCVlJwpgA87x O3ZjuFS+QCPxHca6DXGwh IchAD5pmRAbPWwhGt3cVF K0IrHsCpDqPPorA8DsBKM pbmctcmlnaHQ6 FFWzVKKyoR74Tn0erOxtK l9oJFQkBXI3WIZxlMPvY2 BstO4zTuRqBHHeWIKiN9F uxQKuUYooK666 CJnuGyR6XRObdmTxE7MtP SUapXjnKsX1c8R3Ct9KaN liaVGdQU4pYeBdIJk2G6L nQhe1VOAhjTjl FT3ucQKjPMkwFk4toVqsg RynDF2qMGBgfskld420Ub Sgp1xrUPWieGMqBGohMJQ 2S52rp8Y9RLHg CFPkLXD2aSY6oB1lwRpxs jogbGVmdDsgdmVydGljYW kdPKezI319HSMtzHjgWtC LQum2I0UrChz4 ADHqfLbfEP3vdNCpEOaqN l2emWnhfQokIG1sTUQnpq iuu196IvZcr7dgGEIazZV hQMgeXGH4E72s h7N1MCMuKDDxYXB1xOZ8x I5ccAsrkmoomAPeaQybsp BlxRdnQHmcKObsL675GOY yzZiyMl7RRtw2 S4GhDqt9WWQfzMluXQ8xk ZNgHIrbMc3zaDbehQahQW 7uWUNaltgix510VyPfr4c kIDEwcHQgVGlt GAK5N16tf5D8CXZhOIBcB EQ0mQB5jH2beDobhgkoxQ VmdDsgdmVydGljYWwtYWx aN395DHUtfPqu PlBheWVyOjwvdGQ+PC90c q88S4NgVdfcCyu7IFDbRC S6uHB4eB7dMVKgKYmwv5K 8nYB6Z3OswxBd ci1 (more content not included)... [facility] ED Clinical Summaryon 2021 ED Clinical Summary [facility] - Emergency Department [address] [place] [id number] ED Clinical Summary PERSON INFORMATION Name: BRANDY BOND Age: 31 Years Sex: FEMALE : 1990 MRN: Acct#: Visit Reason: Dental pain; Dental pain; DENTAL PAIN Arrival: 03/06/2022 04:38:30 Discharge: 03/06/2022 05:43:00 LOS: 000 01:05 Check In: 03/06/2022 04:38:30 Checkout:03/06/2022 05:43:00 Address: [address] [place] [id number] PCP: Provider, None PROVIDER INFORMATION Provider Role Assigned Unassigned Chantal Dumont PATTERN CLERK Nurse 03/06/2022 04:49:46 Ari Juarez DO ED [...] PATIENT EDUCATION INFORMATION Instructions: Dental Caries, Adult, [id number]-hk-[id number] Follow-Up: With: Address: When: None Provider [address] [place] [address] Within 3 to 5 days Comments: Percocet [...] arley verbalizes understanding of instructions given Comment: [facility] ED Note - Otheron 03-06-2022 ED Note - Other [phone] [phone] [id number]# [id number] [facility] ED Note - Physicianon 2021 ED [...] an appointment coming up, was seen at [facility] couple days ago and given some [...] provided for home. I told him to pickling solution maker some dental wax tomorrow to replace the [...] Plan Diagnosis Pain due to dental caries ([id number] K02.9, Discharge, Medical) Plan Condition: Unchanged. Disposition: Discharged: time 03/06/2022 05:21:00. Patient was given the following educational materials: Dental Caries, Adult, Vgat-qt-Puiy. Follow up with: None Provider Within 3 [...] 03/06/2022 21:10 EDT] Ari Juarez DO [facility] ED Patient Summaryon 022 ED Patient Summary [facility] - Emergency Department [address] [place], [place] [id number] PATIENT DISCHARGE INSTRUCTIONS Patient Information Name: BRANDY BOND Age: 31 Years Date of : 1990 Reason For Visit: Dental pain; Dental pain; DENTAL PAIN Arrival Time: 03/06/2022 04:38:30 Primary Care Physician: Provider, None Attending Physician: Ari Juarez DO Comment: Visit Diagnosis: Diagnoses This Visit Dental pain ([id number]) Dental pain ([id number]) Pain due to dental caries (K02.9) Prescription Information: If you have been given a prescription for narcotics, seek immediate medical attention if you have any difficulty breathing or any sudden status changes such as confusion and sleepiness. If you or anyone you know is experiencing suicidal thoughts, mental health, alcohol and/or drug addiction problems; contact the [facility] 31/03 Crisis Hotline -Text 8SUUK tw 779589. If you received any narcotics, sedation, or [...] documents With: Address: When: None Provider [address] [place] [address] Within 3 to 5 days Comments: Percocet [...] and treatment you received today in the [facility] Emergency Department were for an urgent problem and are not intended as complete care. It is important for you to follow up with a doctor, nurse practitioner, or physician?s assistant professor of sociology for ongoing care. If your symptoms become [...] so we can reach you if necessary. [facility] Emergency Department has provided you with a complete list of medications post discharge. Please inform your window caser/provider of your visit and for further instruction [...] increases the (more content not included)... [facility] Encounters Encounter Date Encounter Type Care Provider [...] Facility: Payers Date Payer Category Payer Unknown [id number] 2.16.84 [id number] 1990 Unknown [id number] 2.16.84 [id number] 1990 Unknown [id number] 2.16.84 [id number] 1990 Unknown [id number] 2.16.84 [id number] 1990 Unknown [id number] 2.16.84 [id number] 1990 Unknown [id number] 2.16.84 [id number] 1958 Self-pay [id number] 1958 Self-pay Clinical Note 06-03-2022 Note Date [...] by: AMANDA QUINTERO Date: 2022-06-03 14:57 [facility] Clinical Note 03-06-2022 Note Date & [...] and teeth. This keeps them healthy. ? [place] your teeth 2 times a day. Use [...] prevented? ? To prevent dental caries: ? [place] your teeth every morning and night. Use [...] provider. Document Revised: 08/11/2020 Document Reviewed: 08/11/2020 [employer] Patient Education ? 2020 [employer]. [facility] Summary Purpose Family History No Family History Records FoundNo Family History Records Found Advance Directives No Advanced Directives Records FoundNo Advanced Directives Records Found Additional Source Comments INFORMATION SOURCE (unrecogn ized section and content) DATE CREATED AUTHOR 03/14/2022 [facility] DATE CREATED AUTHOR AUTHOR'S KENTRELL ATSULY 01/22/2023 [facility] FOR RECORDS PERTAINING TO PATIENTS WHO [...] BE BASED ON THE PRIMARY CLINICAL RECORDS. [employer] provides no warranty or guarantee of the accuracy or completeness of information in this document.
--- NOTE | 2024-07-10 19:34 | XR_ITS ---
The [address] [address] Patient Name: BRANDY OBND MRN: [id number] date: 1990 Sex: F Assigned Patient Location: ER Current Patient Location: Accession/Order Number: [id number] Exam Date: 07/10/2024 19:50 Report Date: 07/10/2024 22:09 At the request of: AILYN CHOW Procedure: XR humerus RT EXAM: XR humerus RT HISTORY: The patient is a 33-year-old female, right arm pain COMPARISON: None. FINDINGS: The right humerus is radiographically negative with no evidence of fracture, cortical lucencies, or other osseous abnormalities. The shoulder and elbow joints are grossly maintained. XR/XR humerus RT IMPRESSION: Negative. Electronically authenticated by: JOSE SANON Date: 07/10/2024 22:09
--- NOTE | 2024-07-10 19:35 | ED.GENADUL1 ---
HPI HPI - General Adult General Chief complaint: Extremity Injury, Upper Stated complaint: SHOULDER PAIN Time Seen by Provider: 07/10/24 19:18 Source: patient Mode of arrival: walk-in Limitations: no limitations History of Present Illness HPI narrative: Patient is a 33-year-old female who presents to the emergency department for the evaluation of multiple complaints. Patient states for the last several days she has had pain in the right glenohumeral joint radiating down the right arm to the elbow. She denies any mechanism of injury or trauma but she does work at a job where she is doing repetitive motions with her right upper extremity. She is right-hand dominant. She denies a possibility of . She denies numbness or tingling to the forearm or hand. Patient further complains of 2 small boil like areas under the left breast. One of the areas has opened and drained. No fevers or vomiting. Related Data Home Medications ?Medication ?Instructions ?Recorded ?Confirmed No Known Home Medications 11/12/23 07/10/24 Previous Rx's ?Medication ?Instructions ?Recorded clindamycin HCl 150 mg capsule 300 mg (2 x 150 mg) PO Q6H 7 days 07/10/24 #56 caps hydrocodone 5 mg-acetaminophen 325 1 tab PO Q6H PRN pain 3 days #12 07/10/24 mg tablet tabs ketorolac 10 mg tablet 10 mg PO TID PRN pain #10 tabs 07/10/24 methocarbamol 750 mg tablet 750 mg PO TID PRN pain #20 tabs 07/10/24 Allergies Allergy/AdvReac Type Severity Reaction Status Date / Time Sulfa (Sulfonamide Allergy Hives Verified 07/10/24 19:22 Antibiotics) peanuts Allergy Anaphylaxis Uncoded 07/10/24 19:22 Opioid HPI Opioid Management Most Recent Opioid Data: Last Pain Scale 5 07/10/24 20:04 07/10/24 Review of Systems ROS Constitutional Denies: fever or chills Ears, nose, mouth, and throat Denies: throat pain Cardiovascular Denies: chest pain Respiratory Denies: shortness of breath or cough Gastrointestinal Denies: abdominal pain, nausea or vomiting Musculoskeletal Reports: extremity pain, joint pain and limited range of motion Integumentary/Breast Reports: new lesion; Denies: rash Neurological Denies: numbness in extremities or weakness in extremities Hematologic/Lymphatic Denies: easy bruising or easy bleeding PFSH PFS Social History Little interest or pleasure in doing things: not at all Feeling down, depressed, or hopeless: not at all Exam Narrative Exam Narrative: Gen.: Awake, alert, in no distress Head: Normocephalic, atraumatic ENT: Moist mucous membranes, C-spine nontender with full range of motion Respiratory: No respiratory distress Extremities: Limited abduction at the right shoulder with tenderness of the right glenohumeral joint. No obvious deformity or sulcus sign. No bony point tenderness of the right elbow, forearm or hand. Normal information developer strength in the right hand. 2+ right radial pulse. Psych: Normal mood and affect Neuro: No focal neuro deficit Skin: Warm, dry, intact; 2 small erythematous areas under the left breast consistent with folliculitis; no fluctuance, red streaking or evidence of mastitis. Constitutional Vital Signs, click to edit/add: Last Vital Signs Temp 98.2 F 07/10/24 19:17 Pulse 87 07/10/24 19:17 Resp 18 07/10/24 19:17 BP 167/112 H 07/10/24 19:17 Pulse Ox 100 07/10/24 19:17 O2 Del Method Room Air 07/10/24 19:17 Course Vital Signs Vital signs: Vital Signs Temperature 98.2 F 07/10/24 19:17 Pulse Rate 87 07/10/24 19:17 Respiratory Rate 18 07/10/24 19:17 Blood Pressure 167/112 H 07/10/24 19:17 Pulse Oximetry 100 07/10/24 19:17 Oxygen Delivery Method Room Air 07/10/24 19:17 Temperature 98.2 F 07/10/24 19:17 Pulse Rate 87 07/10/24 19:17 Respiratory Rate 18 07/10/24 19:17 Blood Pressure 167/112 H 07/10/24 19:17 Pulse Oximetry 100 07/10/24 19:17 Oxygen Delivery Method Room Air 07/10/24 19:17 Medical Decision Making MDM Narrative Medical decision making narrative: X-rays of the right humerus with no evidence of fracture or dislocation. Patient placed in a sling and remains neurovascularly intact. Exam is consistent with right shoulder tendinitis. Rest, ice, gentle stretching. Sling for 3 to 5 days only and return to the ER if symptoms change or worsen. Exam of the skin under the left breast is consistent with mild folliculitis, no evidence of abscess requiring incision and drainage at this time. Apply warm compresses to the area and clindamycin given for antibiotic coverage. Return to the ER if symptoms change or worsen. Follow-up with orthopedics if needed. Work note provided. SUPERVISED APC VISIT, PHYSICIAN ATTESTATION: Based on the medical record the care appears appropriate. ? Medical Records Medical records reviewed: Yes I reviewed the patient's medical records Imaging Data XR humerus: Attestation: I have reviewed the pertinent imaging results. Discharge Plan Discharge Chief Complaint: Extremity Injury, Upper Clinical Impression: Pain in right arm, Folliculitis Patient Disposition: Home, Self-Care Time of Disposition Decision: 20:32 Condition: Good Prescriptions / Home Meds: New hydrocodone-acetaminophen 5-325 mg tablet 1 tab PO Q6H PRN (Reason: pain) 3 Days Qty: 12 0RF Rx Instructions: DX: M79.601 clindamycin HCl 150 mg capsule 300 mg PO Q6H 7 Days Qty: 56 0RF ketorolac 10 mg tablet 10 mg PO TID PRN (Reason: pain) Qty: 10 0RF methocarbamol 750 mg tablet 750 mg PO TID PRN (Reason: pain) Qty: 20 0RF No Action No Known Home Medications Print Language: Citizen [place] Instructions: Folliculitis (ED), Arm Pain (ED) Referrals: Physician,Non-Staff, [Primary Care Provider] - 1 week Prabhu Adan MD [Physician] - As needed
[2024-07-10] MEDS: HYDROCODONE/ACET 5-325 MG TABLET 1 TAB PO (20:04)
[2024-07-10] MEDS: KETOROLAC TROMETHAMINE 60 MG/2 ML VIAL IM (20:09)
[2024-07-10] MEDS: ORPHENADRINE 60 MG/ 2 ML VIAL IM (20:10)
[2024-07-10] MEDS: CLINDAMYCIN HCL 150 MG CAPSULE 300 MG PO (21:00)
== END 2024-07-10 21:05 | disposition home or self-care (01) ==
PROVIDERS: Emergency Provider Student in an Organized Health Care Education/Training Program
DX: M79.601 Pain in right arm (principal); M77.8 Other enthesopathies, not elsewhere classified; L73.9 Follicular disorder, unspecified
CPT/HCPCS: 73060; 96372; 99284; J1885; J2360